=== PATIENT | female | born 1940 | race Caucasian/White ===

== ENCOUNTER 2016-07-24 20:25 | Inpatient (IN) | payer OTHER ==
--- NOTE | 2016-07-24 20:40 | PDOC ---
History of Present Illness - General History Source: Patient, EMS, [facility] Records Exam Limitations: No Limitations - History of Present Illness Initial Comments: 07/24/16 20:52 The patient is a 76 year old female with a PMHx of Parkinsons disease, diabetes , HTN, HLD, GERD gout, spinal stenosis who presents to the ED from [facility] via EMS with dizziness today. The patient reports feeling fine most of the day, completing normal daily activities. However, she reports she began feeling dizzy suddenly. [facility] nurse noted that patient was also weak. She was evaluated at [facility] and sent to the ED because of an irregular heart rate. Per EMS, the patient was going back and forth between normal and bradycardia. She reports a good appetite. She denies any prior cardiac issues. The patient denies chest pain, shortness of breath, palpitations, headache. The patient denies fever, chills, nausea, vomiting, diarrhea, and constipation. The patient denies dysuria, frequency, urgency, and hematuria. Patient has a DNR. PCP: Dr. Gilberto Irby Allergies: Penicillin, Morphine, Ibuprofen <Olimpia Martinez A - Last Filed: 07/24/16 22:36> <Maria Victoria Urias - Last Filed: 07/25/16 21:53> - General Stated Complaint: Irregular Heart Beat Time Seen by Provider: 07/24/16 20:31 Past History <Olimpia Martinez - Last Filed: 07/24/16 22:36> - Past Medical History Diabetes: Yes Disorders: Yes (UTI'S) Hypercholesterolemia: Yes - Psycho/Social/Smoking Cessation Hx Anxiety: No Suicidal Ideation: No Smoking History: Never smoked Have you smoked in the past 12 months: No Hx Alcohol Use: No Drug/Substance Use Hx: No Substance Use Type: None <Maria Victoria Urias - Last Filed: 07/25/16 21:53> - Past Medical History Allergies/Adverse Reactions: Allergies Allergy/AdvReac Type Severity Reaction Status Date / Time ibuprofen Allergy Verified 07/24/16 20:39 morphine Allergy Verified 07/24/16 20:39 Penicillins Allergy Verified 07/24/16 20:39 Home Medications: Ambulatory Orders Allopurinol 300 mg PO DAILY 07/21/15 Enoxaparin Sodium [Lovenox] 40 mg SQ DAILY 07/21/15 Ezetimibe [Zetia] 10 mg PO DAILY 07/21/15 Insulin Lispro [Humalog] 8 unit SQ BID 07/21/15 Metformin HCl [Glucophage] 1,000 mg PO BID 07/21/15 Pantoprazole Sodium [Protonix] 40 mg PO DAILY 07/21/15 Sitagliptin Phosphate [Januvia] 100 mg PO DAILY 07/21/15 Tramadol HCl 50 mg PO QID PRN 07/21/15 Review of Systems - Review of Systems Able to Perform ROS?: Yes Comments:: 07/24/16 20:53 GENERAL/CONSTITUTIONAL: + weakness. No fever or chills. HEAD, EYES, EARS, NOSE AND THROAT: No change in vision. No ear pain or discharge. No sore throat. CARDIOVASCULAR: + irregular heart rate. No chest pain or shortness of breath. RESPIRATORY: No cough, wheezing, or hemoptysis. GASTROINTESTINAL: No nausea, vomiting, diarrhea or constipation. GENITOURINARY: No dysuria, frequency, or change in urination. MUSCULOSKELETAL: No joint or muscle swelling or pain. No neck or back pain. SKIN: No rash NEUROLOGIC: + dizziness. No headache, loss of consciousness, or change in strength/sensation. ENDOCRINE: No increased thirst. No abnormal weight change. HEMATOLOGIC/LYMPHATIC: No anemia, easy bleeding, or history of blood clots. ALLERGIC/IMMUNOLOGIC: No hives or skin allergy. <Olimpia Martinez - Last Filed: 07/24/16 22:36> *Physical Exam - Vital Signs Last Vital Signs Temp Pulse Resp BP Pulse Ox 97.7 F 86 20 178/111 98 07/24/16 20:40 07/24/16 20:40 07/24/16 20:40 07/24/16 20:40 07/24/16 20:40 - Physical Exam Comments: 07/24/16 22:36 GENERAL: Awake, alert, and fully oriented, in no acute distress, afebrile HEAD: No signs of trauma EYES: PERRLA, EOMI, sclera anicteric, conjunctiva clear ENT: Auricles normal inspection, hearing grossly normal, nares patent, oropharynx clear without exudates. Moist mucosa NECK: Normal ROM, supple, no lymphadenopathy, JVD, or masses LUNGS: Breath sounds equal, clear to auscultation bilaterally. No wheezes, and no crackles HEART: Regular rate and rhythm, normal S1 and S2, no murmurs, rubs or gallops ABDOMEN: Soft, nontender, normoactive bowel sounds. No guarding, no rebound. No masses EXTREMITIES: Normal range of motion, no edema. No clubbing or cyanosis. No cords, erythema, or tenderness NEUROLOGICAL: Cranial nerves II through XII grossly intact. Normal speech, no tremors SKIN: Warm, Dry, normal turgor, no rashes or lesions noted. <Olimpia Martinez - Last Filed: 07/24/16 22:36> ED Treatment Course - LABORATORY CBC & Chemistry Diagram: 07/24/16 20:30 07/24/16 20:30 - RADIOLOGY Radiograph Interpretation: 07/24/16 22:10 Chest X-Ray Reported by: Dr. Poonam Garzon Impression: Mild cardiomegaly and mild bilateral increased interstitial markings without evidence of acute lung disease. <Olimpia Martinez - Last Filed: 07/24/16 22:36> - LABORATORY CBC & Chemistry Diagram: 07/25/16 06:00 07/25/16 06:00 <Maria Victoria Urias - Last Filed: 07/25/16 21:53> Medical Decision Making - Medical Decision Making 07/24/16 20:44 Pt comes with intermittent bradycardia. Possibly sick sinus syndrome. On EKG she has new changes. She was NSR in Jul 2015; now she has a new interventricular consuction delay. In the ER she has HR of 83BPM. Her systolic pressure is 178, however, she takes nothing for HTN, so I will not treat this, as she is asymptomatic, and when she bradys down to 40s heart rate, I believe an elevated systolic pressure will help her. Pt has no complaints, other than mild dizziness. She will be monitored and she will have cardiac labs sent. Portable CXR pending. One everything is back, we will call Dr. Irby; we will place a cordis line if pt becomes bradycardic in the ER. 07/25/16 21:53 Pt remained in the er FOR HOURS, BUT NEVER HAD AN EPISODE OF BRADYCARDIA. SHE WAS ADMITTED TO THE FLOOR. <Maria Victoria Urias - Last Filed: 07/25/16 21:53> *DC/Admit/Observation/Transfer - Attestations Scribe Attestion: 07/24/16 20:53 Documentation prepared by Olimpia Martinez, acting as medical transcription for Maria Victoria Urias MD. <Olimpia Martinez - Last Filed: 07/24/16 22:36> - Discharge Dispostion Admit: Yes <Maria Victoria Urias - Last Filed: 07/25/16 21:53> Diagnosis at time of Disposition: EKG abnormalities, Tachy-amado syndrome, Dizziness - Referrals
[2016-07-24 20:45] LABS: BASOPHIL 0.9 % (0-2.0); EOSINOPHIL 1.7 % (0-4.5); MCH 29.3 pg (25.7-33.7); MCHC 32.7 g/dl (32.0-36.0); MEAN CELL VOLUME 89.4 fl (80-96); MEAN PLT VOLUME 7.8 fl (7.5-11.1); PLATELET COUNT 246 K/MM3 (134-434); RDW 14.6 % (11.6-15.6)
[2016-07-24 20:48] VITALS: BMI 25.7
[2016-07-24 21:08] LABS: ANION GAP 10 (8-16); BILIRUBIN,TOTAL 0.3 mg/dL (0.2-1.0); CALCIUM 9.1 mg/dL (8.5-10.1); CO2 26 mmol/L (21-32); CREATININE 0.8 mg/dL (0.55-1.02); GLUCOSE,RANDOM 145 mg/dL (74-106); SGOT/AST 11 U/L (15-37); SGPT/ALT 8 U/L (12-78); TOT PROT 6.5 g/dl (6.4-8.2)
[2016-07-24 21:10] LABS: ALK PHOS 93 U/L (45-117); TROPONIN I < 0.02 ng/ml (0.00-0.05)
[2016-07-24 21:25] LABS: INR 0.93 (0.82-1.09); PROTHROMBIN TIME (PATIENT) 10.2 SEC (9.98-11.88)
[2016-07-24] MEDS ORDERED: traMADol HCL 50 MG TABLET PO PRN (22:03)
[2016-07-25] MEDS ORDERED: amLODIPine BESYLATE 5 MG TABLET (FP) PO SCH ×2 (01:45→10:00)
--- NOTE | 2016-07-25 06:08 | HP ---
Admitting History and Physical - Admission Chief Complaint: 80 y.o F [facility] resident developed last night bradicardia with pulse reported by staff 44-30, irregular pulse and dizziness and weakness while sitting in w/c. Pt was sent to [facility] for further management. History of Present Illness: 1.Pt has pituitary macroadenoma. Last MRI of the brain showed 16x9.5x12 mm macroadenoma in the right side of the pituitary gland crossing the midline causing deviation of the pituitary infundibulum to the left. Normal optic chiasm. 2. Subacute non-hemorrhagic lacunar infarct (7.2x4.8) was seen in the posterior aspect of the body of the left caudate nucleus on MRI 07/17/2016. 3. DM type 2. 4. Parkinson disease. 5.Spinal stenosis. Gait disorder. History of falls. 6. HTN. 7.HLD. 8. Gout. 9. GERD. 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: CVA, Parkinson's, Other (Cognitive impairment) Pulmonary: No: Asthma, Bronchitis, Cancer, COPD, O2 Dependent, Pneumonia, Previously Intubated, Pulmonary Embolus, Pulmonary Fibrosis, Sleep Apnea, Other Gastrointestinal: Yes: GERD Renal/: No: Renal Failure, Renal Inusuff, BPH, Cancer, Hematuria, Hemodialysis , Neurogenic Bladder, Renal Calculi, UTI, Other Infectious Disease: No: AIDS, C-Diff, Herpes Zoster, HIV, MRSA, STD's, Tuberculosis, VREF, Other Psych: No: Addictions, Anxiety, Bipolar, Depression, Panic, Psychosis, Schizophrenia, Other Rheumatology: No: Fibromyalgia, Gout, Lupus, Rheumatoid Arthritis, Sarcoidosis, Vasculitis, Other Endocrine: Yes: Diabetes Mellitus, Other (pituitary macroadenoma) Dermatology: No: Basal Cell, Cellulitis, Eczema, Melanoma, Psoriasis, Squamous Cell, Other - Advance Directives Advance Directives: Yes: DNR - Smoking History Smoking history: Never smoked Have you smoked in the past 12 months: No - Alcohol/Substance Use Hx Alcohol Use: No - Social History Usual Living Arrangement: Yes: Detention History of Recent Travel: No Home Medications - Allergies Allergies/Adverse Reactions: Allergies Allergy/AdvReac Type Severity Reaction Status Date / Time ibuprofen Allergy Verified 07/24/16 20:39 morphine Allergy Verified 07/24/16 20:39 Penicillins Allergy Verified 07/24/16 20:39 - Home Medications Home Medications: Ambulatory Orders Allopurinol 300 mg PO DAILY 07/21/15 Enoxaparin Sodium [Lovenox] 40 mg SQ DAILY 07/21/15 Ezetimibe [Zetia] 10 mg PO DAILY 07/21/15 Insulin Lispro [Humalog] 8 unit SQ BID 07/21/15 Metformin HCl [Glucophage] 1,000 mg PO BID 07/21/15 Pantoprazole Sodium [Protonix] 40 mg PO DAILY 07/21/15 Sitagliptin Phosphate [Januvia] 100 mg PO DAILY 07/21/15 Tramadol HCl 50 mg PO QID PRN 07/21/15 Family Disease History - Family Disease History Family History: Unremarkable Review of Systems Findings/Remarks: Forgetful Physical Examination Vital Signs: Vital Signs Temperature 98.2 F 07/25/16 05:27 Pulse Rate 80 07/25/16 05:27 Respiratory Rate 18 07/25/16 05:27 Blood Pressure 158/90 07/25/16 05:27 O2 Sat by Pulse Oximetry (%) 98 07/25/16 02:05 Constitutional: Yes: Well Nourished, Calm. No: No Distress Eyes: Yes: Conjunctiva Clear, EOM Intact HENT: Yes: Atraumatic, Normocephalic Neck: Yes: Supple, Trachea Midline. No: Decreased ROM Cardiovascular: Yes: Regular Rate and Rhythm, S1, S2. No: Bradycardia, Tachycardia Respiratory: Yes: Regular, CTA Bilaterally Gastrointestinal: Yes: Normal Bowel Sounds, Soft, Other (small umbilical hernia) . No: Abdomen, Obese, Palpable Mass, Tenderness ...Rectal Exam: Yes: Deferred Renal/: No: Anuria, Bladder Distention, CVA Tenderness - Left, CVA Tenderness - Right Breast(s): Yes: WNL Edema: No Integumentary: Yes: WNL Neurological: Yes: Alert, Oriented (x1) ...Motor Strength: WNL Psychiatric: Yes: Alert, Oriented (x1). No: Agitated, Suicidal Ideation Imaging - Results Chest X-ray: Report Reviewed MRI: Report Reviewed (Brain MRI-report reviewed) EKG: Image Reviewed (SR, New incomplete RBBB) Problem List - Problems (1) Tachy-amado syndrome Assessment/Plan: Episode of bradicardia at [facility] with irregular HR. Diff Dx -A.Fib-bradi, extrasystoly, heart block etc. pt was symptomatic with generalized weakness and dizziness. Will follow the pt on telemetry for cardiac arrhythmias. Cardiology consult Code(s): I49.5 - SICK SINUS SYNDROME (2) CVA (cerebral vascular accident) Assessment/Plan: Allergy to Motrin.Ibuprofen. Start Plavix 75 mg QD Observe for A.FIB Neurology consult Follow DM control and BP. Code(s): I63.9 - CEREBRAL INFARCTION, UNSPECIFIED Qualifiers: Precerebral and cerebral artery: unspecified precerebral artery (4) Pituitary adenoma Assessment/Plan: Endocrinology consult. Prolactin level, TFT. No symptoms of acromegaly or Elizabeth disease Code(s): D35.2 - BENIGN NEOPLASM OF PITUITARY GLAND (5) HTN (hypertension) Assessment/Plan: Follow BP. Added Amlodipine for better BP controll. Code(s): I10 - ESSENTIAL (PRIMARY) HYPERTENSION Qualifiers: Hypertension type: essential hypertension Qualified Code(s): I10 - Essential (primary) hypertension (6) Diabetes Assessment/Plan: Follow BGM Januvia, Insulin. Metformin as outpt. Code(s): E11.9 - TYPE 2 DIABETES MELLITUS WITHOUT COMPLICATIONS Qualifiers: Diabetes mellitus type: type 2 Diabetes mellitus complication status: without complication
[2016-07-25] MEDS: INSULIN SLIDING SCALE (NOVOLOG) 1 VIAL SQ SCH ×4 (06:26→22:10)
[2016-07-25] MEDS: sitaGLIPtin PHOSPHATE 100 MG TABLET (FP) PO SCH (06:38)
[2016-07-25] MEDS ORDERED: amLODIPine BESYLATE 10 MG TABLET (FP) PO SCH (06:44)
[2016-07-25 08:43] LABS: BASOPHIL 0.8 % (0-2.0); EOSINOPHIL 1.8 % (0-4.5); MCH 29.5 pg (25.7-33.7); MCHC 32.9 g/dl (32.0-36.0); MEAN CELL VOLUME 89.6 fl (80-96); NEUTROPHILS 65.3 % (42.8-82.8); PLATELET COUNT 242 K/MM3 (134-434); RDW 14.3 % (11.6-15.6); WHITE BLOOD COUNT 9.7 K/mm3 (4.0-10.0)
[2016-07-25 08:57] LABS: ALBUMIN 3.3 g/dl (3.4-5.0); ANION GAP 11 (8-16); CALCIUM 9.9 mg/dL (8.5-10.1); CO2 28 mmol/L (21-32); CREATININE 0.7 mg/dL (0.55-1.02); GLUCOSE,RANDOM 125 mg/dL (74-106); MAGNESIUM 1.3 mg/dL (1.8-2.4); PHOSPHOROUS 3.5 mg/dL (2.5-4.9); SGOT/AST 14 U/L (15-37); SGPT/ALT 19 U/L (12-78)
[2016-07-25 08:58] LABS: ALK PHOS 99 U/L (45-117); BILIRUBIN,TOTAL 0.4 mg/dL (0.2-1.0); TOT PROT 6.8 g/dl (6.4-8.2)
[2016-07-25] MEDS: ALLOPURINOL 300 MG TABLET (FP) PO SCH (09:09)
[2016-07-25] MEDS: HEPARIN NA (PORCINE) 5,000 UNITS/ML 1ML VIAL SQ SCH ×2 (09:09→22:08)
[2016-07-25] MEDS: INSULIN DETEMIR 100 UNITS/ML MDV SQ SCH (09:09)
[2016-07-25] MEDS: EZETIMIBE 10 MG TABLET (FP) PO SCH (09:09)
[2016-07-25] MEDS: PANTOPRAZOLE 40 MG TABLET (FP) PO SCH (09:09)
[2016-07-25] MEDS ORDERED: HEPARIN NA (PORCINE) 5,000 UNITS/ML 1ML VIAL SQ SCH (10:00)
[2016-07-25] MEDS ORDERED: INSULIN LISPRO 8 UNIT SQ SCH (10:00)
[2016-07-25] MEDS ORDERED: CLOPIDOGREL BISULFATE 75 MG TABLET (FP) PO SCH (10:00)
[2016-07-25] MEDS ORDERED: ENOXAPARIN NA (PORCINE) 40 MG/0.4 ML DISP.SYRIN SQ SCH (10:00)
--- NOTE | 2016-07-25 10:08 | PN ---
Progress Note (short form) - Note Progress Note: NEUROSURGERY CONSULT DICTATED Chart reviewed Pt examined Brain CT and MRI reviewed H/o ?Parkinsons disease, diabetes, HTN, hypercholesterolemia, GERD, gout, spinal stenosis who presents to the ED from [facility] with dizziness. She was evaluated at [facility] and sent to the ED because of an irregular heart rate. Per EMS, the patient was going back and forth between normal and bradycardia. She reports a good appetite. She denies any prior cardiac issues. The patient denies chest pain, shortness of breath, palpitations , headache. The patient denies H/A, N/V, visual changes, fever, chills. Patient is DNR. PE: AF, VSS HEENT- NC/ACT; Neck-supple; Cor-RR; Lungs- CTA B; Abd- mildly obese, benign; Ext - trace edema, no other sign of DVT A/A/Ox4; memory intact; speech normal CN- decreased L hearing; Motor- 4+-5/5 without drift; Sensation- intact LT; DTR - hyporeflexia Head CT; moderate atrophy and moderate periventricular disease; BG lacunes MRI Brain: 16 x 11x 9 mm R sellar lesion with stalk to L; no chiasm compression or suprasellar extension; moderate atrophy. Extensive white matter microvascular disease; L caudate subacute/acute ischemia Probably pituitary non-functional macroadenoma Given extensive medical history no neurosurgical intervention is recommended for this likely asymptomatic lesion Dizziness likely related to acute-subacute L caudate ischemia and/or bradycardia Control of medical risk factors (DM/HTN/hypercholesterolemia) for stroke Pt understands the above
--- NOTE | 2016-07-25 15:05 | CON.CARD ---
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 The patient reports feeling fine most of the day, completing normal daily activities. However, she reports she began feeling dizzy suddenly. [facility] nurse noted that patient was also weak. She was evaluated at [facility] and sent to the ED because of an irregular heart rate. Per EMS, the patient was going back and forth between normal and bradycardia. She reports a good appetite. She denies any prior cardiac issues. The patient denies chest pain, shortness of breath, palpitations, headache. The patient denies fever, chills, nausea, vomiting, diarrhea, and constipation. The patient denies dysuria, frequency, urgency, and hematuria. Patient has a DNR. PCP: Dr. 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, Parkinson's, Other (Cognitive impairment) Pulmonary: No: Asthma, Bronchitis, Cancer, COPD, O2 Dependent, Pneumonia, Previously Intubated, Pulmonary Embolus, Pulmonary Fibrosis, Sleep Apnea, Other Gastrointestinal: Yes: GERD Renal/: No: Renal Failure, Renal Inusuff, BPH, Cancer, Hematuria, Hemodialysis , Neurogenic Bladder, Renal Calculi, UTI, Other Reproductive: Yes: Postmenopausal ...: No Infectious Disease: No: AIDS, C-Diff, Herpes Zoster, HIV, MRSA, STD's, Tuberculosis, VREF, Other Psych: No: Addictions, Anxiety, Bipolar, Depression, Panic, Psychosis, Schizophrenia, Other Rheumatology: No: Fibromyalgia, Gout, Lupus, Rheumatoid Arthritis, Sarcoidosis, Vasculitis, Other Endocrine: Yes: Diabetes Mellitus, Other (pituitary macroadenoma) Dermatology: No: Basal Cell, Cellulitis, Eczema, Melanoma, Psoriasis, Squamous Cell, Other - Alcohol/Substance Use Hx Alcohol Use: No - Smoking History Smoking history: Never smoked Have you smoked in the past 12 months: No - Social History History of Recent Travel: No Home Medications - Allergies Allergies/Adverse Reactions: Allergies Allergy/AdvReac Type Severity Reaction Status Date / Time ibuprofen Allergy Verified 07/24/16 20:39 morphine Allergy Verified 07/24/16 20:39 Penicillins Allergy Verified 07/24/16 20:39 - Home Medications Home Medications: Ambulatory Orders Allopurinol 300 mg PO DAILY 07/21/15 Enoxaparin Sodium [Lovenox] 40 mg SQ DAILY 07/21/15 Ezetimibe [Zetia] 10 mg PO DAILY 07/21/15 Insulin Lispro [Humalog] 8 unit SQ BID 07/21/15 Metformin HCl [Glucophage] 1,000 mg PO BID 07/21/15 Pantoprazole Sodium [Protonix] 40 mg PO DAILY 07/21/15 Sitagliptin Phosphate [Januvia] 100 mg PO DAILY 07/21/15 Tramadol HCl 50 mg PO QID PRN 07/21/15 - Risk Factors Known Risk Factors: Yes: Age, Hypertension, Physical Inactivity Vital Signs: Vital Signs Temperature 98.1 F 07/25/16 10:00 Pulse Rate 45 L 07/25/16 14:00 Respiratory Rate 18 07/25/16 14:00 Blood Pressure 150/71 07/25/16 14:00 O2 Sat by Pulse Oximetry (%) 90 L 07/25/16 09:00 Constitutional: Yes: Calm Eyes: Yes: WNL HENT: Yes: WNL Neck: Yes: WNL Respiratory: Yes: Regular Gastrointestinal: Yes: Soft Renal/: No: Anuria Cardiovascular: Yes: Bradycardia JVD: No Carotid Bruit: No PMI: Non-Displaced Heart Sounds: Yes: S1, S2 Murmur: Yes: Systolic Murmur, Grade 1 Musculoskeletal: Yes: Muscle Weakness Extremities: Yes: Cool Edema: No Peripheral Pulses WNL: No Integumentary: Yes: WNL Neurological: Yes: Alert Psychiatric: Yes: Alert - Other Data Labs, Other Data: CBC, BMP 07/25/16 06:00 07/25/16 06:00 INR, PTT INR 0.93 (0.82-1.09) 07/24/16 20:30 Imaging - Results Chest X-ray: Image Reviewed (no acute changes) Problem List - Problems (1) CVA (cerebral vascular accident) Code(s): I63.9 - CEREBRAL INFARCTION, UNSPECIFIED Qualifiers: Precerebral and cerebral artery: unspecified precerebral artery (2) Dizziness Code(s): R42 - DIZZINESS AND GIDDINESS (3) EKG abnormalities Code(s): R94.31 - ABNORMAL ELECTROCARDIOGRAM [ECG] [EKG] (4) HTN (hypertension) Assessment/Plan: Start lisinopril 5 mg daily (HTN; DM). Decrease amlodipine to 5 mg daily; increase if required for BP. Code(s): I10 - ESSENTIAL (PRIMARY) HYPERTENSION Qualifiers: Hypertension type: essential hypertension Qualified Code(s): I10 - Essential (primary) hypertension (5) Pituitary adenoma Code(s): D35.2 - BENIGN NEOPLASM OF PITUITARY GLAND (6) Second degree AV block Assessment/Plan: 2:1 AV conduction. F/u TFTs. Replete magnesium. Telemetry; serial EKG. Serkal TNI (1st. last night, was 0.02). Echo for LVEF, chamber sizes, wall motion, valve status. Code(s): I44.1 - ATRIOVENTRICULAR BLOCK, SECOND DEGREE
[2016-07-25] MEDS ORDERED: MAGNESIUM SULF 50% (8.12 MEQ/2 ML-1 GM VIAL) IVPB ONE (15:30)
[2016-07-25 17:12] LABS: TROPONIN I < 0.02 ng/ml (0.00-0.05)
[2016-07-25 17:36] LABS: CHOLESTEROL 215 mg/dL (50-200); LDL CHOLESTEROL (ONLY SJRH) 127 mg/dL (5-100)
--- NOTE | 2016-07-25 19:32 | CONSULT ---
Consult - text type - Consultation Consultation Note: NEUROLOGY CONSULTATION is greatly appreciated: This 76 yo RH religion woman is a [facility] resident with h/o HTN, DM, Chol, gout, GERD, Parkinsons Disease, OMS, and LS spinal stenosis. Maintained on: Insulins, metformin, Januvia, allopurinal, lovenox, zetia, protonix, tramadol, and Sinemet (37.5/150 PO TID). Now admitted after 4 brief episodes of dizziness in the last few weeks. Described as "spinning" of sudden onset. No obvious positional or provocative factors. - Tinnitus. + chronic Left sided deafness MRI was done as outpatient and is available for review: Mod, diffuse, atrophy. Diffuse periventricular microvascular changes with chronic,B/L, Basal ganglia lacunes and a subacute lacune in the left caudate. Also a 1 cm diameter pituitary adenoma is present. Transferred from [facility] with Bradycardia and 2:[address] Jacob's consultation is read and appreciated. NINFA: No bruits, Cor slow (50's) but reg. No head trauma. NEURO: Awake, alert, cooperative. Mild OMS. [facility] Jul 2016. Trump. Recalls 1 of 3 at 3. + Glabella. Speech is fluent Masked facies. Deaf Mild bradykinesia. + Cogwheel rigidity. Normal strength. Decreased GREG's R>L. Increased reflexes on the right. Absent Left AJ. Right Babinski. No FTN dystaxia Sensory: reduced vibration in the feet. IMP: 1. Mild B/L cerebral dysfunction (OMS, Chronic). 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 2. Mild Left cerebral accentuation due to Left caudate infarct with mild Right hemiparesis. 3. Parkinsonism and/or Parkinson's disease. 4. Presyncope due to Bradycardia and Garvin block. SUGGEST: Agree with plavix 75 mg PO qd. Continue Sinemet CR 50/200 TID @ 7 AM, 12 noon, and 5PM Cardiac eval as per Dr. Gentile and PPM if necessary. Neurology f/u as out patient. Thank you very much, Rohan Sharma MD
--- NOTE | 2016-07-25 20:58 | EKG ---
Test Reason : Blood Pressure : / mmHG Vent. Rate : 045 BPM Atrial Rate : 089 BPM P-R Int : 152 ms QRS Dur : 132 ms QT Int : 490 ms P-R-T Axes : 040 040 061 degrees QTc Int : 423 ms SINUS RHYTHM WITH 2ND DEGREE A-V BLOCK WITH 2:1 A-V CONDUCTION POSSIBLE LEFT ATRIAL ENLARGEMENT RIGHT BUNDLE BRANCH BLOCK ABNORMAL ECG WHEN COMPARED WITH ECG OF 25-JUL-2016 09:25, NO SIGNIFICANT CHANGE WAS FOUND Confirmed by DARRIAN CHUN MD ([id number]) on 07/25/2016 8:58:01 PM Referred By: Antonieta ISAAC Confirmed By:DARRIAN CHUN MD
--- NOTE | 2016-07-25 21:02 | EKG ---
Test Reason : Blood Pressure : / mmHG Vent. Rate : 043 BPM Atrial Rate : 087 BPM P-R Int : 158 ms QRS Dur : 138 ms QT Int : 506 ms P-R-T Axes : 040 026 061 degrees QTc Int : 427 ms SINUS RHYTHM WITH 2ND DEGREE A-V BLOCK WITH 2:1 A-V CONDUCTION RIGHT BUNDLE BRANCH BLOCK POSSIBLE INFERIOR INFARCT (CITED ON OR BEFORE 24-JUL-2016) ABNORMAL ECG WHEN COMPARED WITH ECG OF 24-JUL-2016 20:39, SINUS RHYTHM IS NOW WITH 2ND DEGREE A-V BLOCK VENT. RATE HAS DECREASED BY 39 BPM RIGHT BUNDLE BRANCH BLOCK HAS REPLACED NON-SPECIFIC INTRA-VENTRICULAR CONDUCTION BLOCK Confirmed by DARRIAN CHUN MD ([id number]) on 07/25/2016 9:02:03 PM Referred By: Antonieta ISAAC Confirmed By:DARRIAN CHUN MD
--- NOTE | 2016-07-25 21:04 | EKG ---
Test Reason : Blood Pressure : / mmHG Vent. Rate : 082 BPM Atrial Rate : 082 BPM P-R Int : 168 ms QRS Dur : 128 ms QT Int : 408 ms P-R-T Axes : 036 037 033 degrees QTc Int : 476 ms NORMAL SINUS RHYTHM POSSIBLE LEFT ATRIAL ENLARGEMENT NON-SPECIFIC INTRA-VENTRICULAR CONDUCTION BLOCK INFERIOR INFARCT , AGE UNDETERMINED ABNORMAL ECG NO PREVIOUS ECGS AVAILABLE Confirmed by DARRIAN CHUN MD ([id number]) on 07/25/2016 9:04:42 PM Referred By: Confirmed By:DARRIAN CHUN MD
[2016-07-25 22:30] LABS: TROPONIN I < 0.02 ng/ml (0.00-0.05)
--- NOTE | 2016-07-26 00:16 | CONSULT ---
Consult Consult Specialty:: endocrine Referred by:: Reason for Consultation:: pituitary adenoma - History of Present Illness Chief Complaint: dizzy episodes History of Present Illness: 76 year old female with a PMHx of Parkinsons disease, diabetes, HTN, HLD, GERD gout, spinal stenosis who presents to the ED from [facility] via EMS with dizziness today. The patient reports feeling dizzy during 4 episodes that were brief without headache nausea or vomiting.she denies vision disturbance or galactorea - History Source History Provided By: Patient - Past Medical History MANAGER CARDIOVASCULAR: Yes: CVA, Parkinson's, Other (Cognitive impairment) Pulmonary: No: Asthma, Bronchitis, Cancer, COPD, O2 Dependent, Pneumonia, Previously Intubated, Pulmonary Embolus, Pulmonary Fibrosis, Sleep Apnea, Other Gastrointestinal: Yes: GERD Renal/: No: Renal Failure, Renal Inusuff, BPH, Cancer, Hematuria, Hemodialysis , Neurogenic Bladder, Renal Calculi, UTI, Other ...: No Infectious Disease: No: AIDS, C-Diff, Herpes Zoster, HIV, MRSA, STD's, Tuberculosis, VREF, Other Psych: No: Addictions, Anxiety, Bipolar, Depression, Panic, Psychosis, Schizophrenia, Other Rheumatology: No: Fibromyalgia, Gout, Lupus, Rheumatoid Arthritis, Sarcoidosis, Vasculitis, Other Endocrine: Yes: Diabetes Mellitus, Other (pituitary macroadenoma) Dermatology: No: Basal Cell, Cellulitis, Eczema, Melanoma, Psoriasis, Squamous Cell, Other - Alcohol/Substance Use Hx Alcohol Use: No - Smoking History Smoking history: Never smoked Have you smoked in the past 12 months: No - Social History History of Recent Travel: No Home Medications - Allergies Allergies/Adverse Reactions: Allergies Allergy/AdvReac Type Severity Reaction Status Date / Time ibuprofen Allergy Verified 07/24/16 20:39 morphine Allergy Verified 07/24/16 20:39 Penicillins Allergy Verified 07/24/16 20:39 - Home Medications Home Medications: Ambulatory Orders Allopurinol 300 mg PO DAILY 07/21/15 Enoxaparin Sodium [Lovenox] 40 mg SQ DAILY 07/21/15 Ezetimibe [Zetia] 10 mg PO DAILY 07/21/15 Insulin Lispro [Humalog] 8 unit SQ BID 07/21/15 Metformin HCl [Glucophage] 1,000 mg PO BID 07/21/15 Pantoprazole Sodium [Protonix] 40 mg PO DAILY 07/21/15 Sitagliptin Phosphate [Januvia] 100 mg PO DAILY 07/21/15 Tramadol HCl 50 mg PO QID PRN 07/21/15 Review of Systems - Review of Systems Constitutional: reports: Weakness Eyes: reports: No Symptoms HENT: reports: No Symptoms Neck: reports: No Symptoms Cardiovascular: reports: No Symptoms Respiratory: reports: No Symptoms Gastrointestinal: reports: No Symptoms Genitourinary: reports: No Symptoms Breasts: reports: No Symptoms Reported Musculoskeletal: reports: Muscle Cramps, Muscle Weakness Integumentary: reports: No Symptoms Neurological: reports: No Symptoms Hematology/Lymphatic: reports: No Symptoms Psychiatric: reports: No Symptoms Physical Exam Vital Signs: Vital Signs Temperature 98.1 F 07/25/16 18:00 Pulse Rate 45 L 07/25/16 18:00 Respiratory Rate 18 07/25/16 18:00 Blood Pressure 146/65 07/25/16 18:00 O2 Sat by Pulse Oximetry (%) 90 L 07/25/16 09:00 Constitutional: Yes: Calm Eyes: Yes: EOM Intact HENT: Yes: Normocephalic Neck: Yes: Trachea Midline Cardiovascular: Yes: Regular Rate and Rhythm Respiratory: Yes: CTA Bilaterally Gastrointestinal: Yes: Normal Bowel Sounds ...Rectal Exam: Yes: Deferred Renal/: Yes: WNL Breast(s): Yes: WNL Musculoskeletal: Yes: WNL Extremities: Yes: WNL Edema: No Peripheral Pulses WNL: Yes Neurological: Yes: Alert, Oriented ...Motor Strength: WNL Psychiatric: Yes: Alert, Oriented Labs: CBC, BMP 07/25/16 06:00 07/25/16 06:00 Problem List - Problems (1) CVA (cerebral vascular accident) Code(s): I63.9 - CEREBRAL INFARCTION, UNSPECIFIED Qualifiers: Precerebral and cerebral artery: unspecified precerebral artery (2) Diabetes Code(s): E11.9 - TYPE 2 DIABETES MELLITUS WITHOUT COMPLICATIONS Qualifiers: Diabetes mellitus type: type 2 Diabetes mellitus complication status: without complication (3) HTN (hypertension) Code(s): I10 - ESSENTIAL (PRIMARY) HYPERTENSION Qualifiers: Hypertension type: essential hypertension Qualified Code(s): I10 - Essential (primary) hypertension (4) Pituitary adenoma Code(s): D35.2 - BENIGN NEOPLASM OF PITUITARY GLAND Assessment/Plan Current Active Problems CVA (cerebral vascular accident) (Acute) Diabetes (Acute) Dizziness (Acute) EKG abnormalities (Acute) HTN (hypertension) (Acute) Pituitary adenoma (Acute) Second degree AV block (Acute) Tachy-amado syndrome (Acute) Abnormal Lab Results 07/25/16 07/25/16 07/25/16 06:00 06:00 06:00 BUN 23 H Random Glucose 125 H Hemoglobin A1c % 6.2 H Magnesium 1.3 L AST 14 L D Albumin 3.3 L Triglycerides 401 H Cholesterol 215 H Total LDL Cholesterol 127 H Laboratory Results - last 24 hr 07/25/16 07/25/16 07/25/16 05:01 06:00 06:00 WBC 9.7 RBC 4.73 Hgb 14.0 Hct 42.4 MCV 89.6 MCHC 32.9 RDW 14.3 Plt Count 242 MPV 8.0 Neutrophils % 65.3 Lymphocytes % 26.1 Monocytes % 6.0 Eosinophils % 1.8 Basophils % 0.8 Sodium 140 Potassium 4.1 Chloride 101 Carbon Dioxide 28 Anion Gap 11 BUN 23 H Creatinine 0.7 Creat Clearance w eGFR > 60 POC Glucometer 89 Random Glucose 125 H Hemoglobin A1c % Calcium 9.9 Phosphorus 3.5 Magnesium 1.3 L Total Bilirubin 0.4 D AST 14 L D ALT 19 D Alkaline Phosphatase 99 Creatine Kinase Troponin I Total Protein 6.8 Albumin 3.3 L Triglycerides Cholesterol Total LDL Cholesterol HDL Cholesterol TSH 07/25/16 07/25/16 07/25/16 06:00 06:00 06:00 WBC RBC Hgb Hct MCV MCHC RDW Plt Count MPV Neutrophils % Lymphocytes % Monocytes % Eosinophils % Basophils % Sodium Potassium Chloride Carbon Dioxide Anion Gap BUN Creatinine Creat Clearance w eGFR POC Glucometer Random Glucose Hemoglobin A1c % 6.2 H Calcium Phosphorus Magnesium Total Bilirubin AST ALT Alkaline Phosphatase Creatine Kinase Troponin I Total Protein Albumin Triglycerides 401 H Cholesterol 215 H Total LDL Cholesterol 127 H HDL Cholesterol 46 TSH 3.12 07/25/16 07/25/16 07/25/16 11:10 15:50 16:34 WBC RBC Hgb Hct MCV MCHC RDW Plt Count MPV Neutrophils % Lymphocytes % Monocytes % Eosinophils % Basophils % Sodium Potassium Chloride Carbon Dioxide Anion Gap BUN Creatinine Creat Clearance w eGFR POC Glucometer 215 146 Random Glucose Hemoglobin A1c % Calcium Phosphorus Magnesium Total Bilirubin AST ALT Alkaline Phosphatase Creatine Kinase 37 Troponin I < 0.02 Total Protein Albumin Triglycerides Cholesterol Total LDL Cholesterol HDL Cholesterol TSH 07/25/16 07/25/16 21:45 22:07 WBC RBC Hgb Hct MCV MCHC RDW Plt Count MPV Neutrophils % Lymphocytes % Monocytes % Eosinophils % Basophils % Sodium Potassium Chloride Carbon Dioxide Anion Gap BUN Creatinine Creat Clearance w eGFR POC Glucometer 217 Random Glucose Hemoglobin A1c % Calcium Phosphorus Magnesium Total Bilirubin AST ALT Alkaline Phosphatase Creatine Kinase 37 Troponin I < 0.02 Total Protein Albumin Triglycerides Cholesterol Total LDL Cholesterol HDL Cholesterol TSH Current Medications Generic Name Dose Route Start Last Admin Trade Name Freq PRN Reason Stop Dose Admin Allopurinol 300 mg 07/25/16 10:00 07/25/16 09:09 Zyloprim - PO 300 mg DAILY BRITTANY Administration Amlodipine Besylate 5 mg 07/26/16 10:00 Norvasc - PO DAILY BRITTANY Ezetimibe 10 mg 07/25/16 10:00 07/25/16 09:09 Zetia - PO 10 mg DAILY BRITTANY Administration Heparin Sodium (Porcine) 5,000 unit 07/25/16 10:00 07/25/16 22:08 Heparin - SQ Not Given BID [facility] Insulin Aspart 1 vial 07/25/16 07:00 07/25/16 22:10 Novolog Vial Sliding Scale - SQ 2 units ACHS BRITTANY Administration Protocol Insulin Detemir 10 units 07/25/16 07:00 07/25/16 09:09 Levemir Vial SQ 10 units AM BRITTANY Administration Lisinopril 5 mg 07/26/16 10:00 Prinivil PO DAILY [facility] Pantoprazole Sodium 40 mg 07/25/16 10:00 07/25/16 09:09 Protonix - PO 40 mg DAILY BRITTANY Administration Sitagliptin Phosphate 100 mg 07/25/16 07:00 07/25/16 06:38 Januvia - PO 100 mg ACBK BRITTANY Administration Tramadol HCl 50 mg 07/24/16 22:03 Ultram - PO Q6H PRN PAIN plan:check pituitary axis and adrenal function cortisol am/pm acth prolactin urine vma concur with insulin coverage and levemir 10 units am januvia 100mg daily
[2016-07-26] MEDS: INSULIN SLIDING SCALE (NOVOLOG) 1 VIAL SQ SCH ×4 (06:16→21:48)
[2016-07-26] MEDS: sitaGLIPtin PHOSPHATE 100 MG TABLET (FP) PO SCH (06:19)
[2016-07-26] MEDS: INSULIN DETEMIR 100 UNITS/ML MDV SQ SCH (06:20)
--- NOTE | 2016-07-26 09:00 | PN ---
Progress Note (short form) - Note Progress Note: PT IS AWAKE ALERT, NAD. TELEMETRY OVER 24 HRS MAYCO WED LONG EPISODES OF av BLOCK WITH 2:1 CONDUCTION WITH BRADICARDIA Vital Signs (72 hours) 07/24/16 07/24/16 07/24/16 20:40 21:30 23:30 Temperature 97.7 F 98.5 F Pulse Rate 86 Pulse Rate [ 88 83 Apical] Respiratory 20 18 22 Rate Blood Pressure 178/111 Blood Pressure 160/100 152/103 [Right Arm] O2 Sat by Pulse 98 99 99 Oximetry (%) 07/25/16 07/25/16 07/25/16 02:05 05:27 09:00 Temperature 97.8 F 98.2 F Pulse Rate 78 80 Pulse Rate [ Apical] Respiratory 20 18 18 Rate Blood Pressure 158/102 158/90 Blood Pressure [Right Arm] O2 Sat by Pulse 98 90 L Oximetry (%) 07/25/16 07/25/16 07/25/16 10:00 14:00 18:00 Temperature 98.1 F 98.1 F Pulse Rate 45 L 45 L 45 L Pulse Rate [ Apical] Respiratory 18 18 18 Rate Blood Pressure 154/76 150/71 146/65 Blood Pressure [Right Arm] O2 Sat by Pulse Oximetry (%) 07/25/16 07/25/16 07/26/16 21:00 22:00 01:47 Temperature 97.5 F L 97.9 F Pulse Rate 48 L 62 Pulse Rate [ Apical] Respiratory 18 18 Rate Blood Pressure 142/71 158/88 Blood Pressure [Right Arm] O2 Sat by Pulse 90 L 90 L Oximetry (%) 07/26/16 07/26/16 06:00 09:01 Temperature 98.1 F Pulse Rate 69 80 Pulse Rate [ Apical] Respiratory 18 20 Rate Blood Pressure 154/83 143/83 Blood Pressure [Right Arm] O2 Sat by Pulse 95 Oximetry (%) ON PE AWAKE, ALERT NECK-NO JVD LUNGS ARE CLEAR HEART S1S2 REGULAR ABDOMEN SOFT, NT EXT NO CCE MILDLY CONFUSED -OMS DISCUSSED WITH DR RIVERO YESTERDAY. ENDOCRINOLOGY W/U FOR PITUITARY MACROADENOMA ORDERED BY DR HARRELL CARDIOTHORACIC CONSULT WAS ORDERED -ELLY CHÁVEZ Current Active Problems Problem Status Diagnosed CVA (cerebral vascular accident) Acute Diabetes Acute Dizziness Acute EKG abnormalities Acute HTN (hypertension) Acute Pituitary adenoma Acute Second degree AV block Acute Tachy-amado syndrome Acute AV BLOCK 2:1 Acute PLAN CONTINUE TELEMETRY. WILL DISCUSS PPM WITH HCP. 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 - SICK SINUS SYNDROME (2) CVA (cerebral vascular accident) Code(s): I63.9 - CEREBRAL INFARCTION, UNSPECIFIED Qualifiers: Precerebral and cerebral artery: unspecified precerebral artery (4) Pituitary adenoma Code(s): D35.2 - BENIGN NEOPLASM OF PITUITARY GLAND (5) HTN (hypertension) Code(s): I10 - ESSENTIAL (PRIMARY) HYPERTENSION Qualifiers: Hypertension type: essential hypertension Qualified Code(s): I10 - Essential (primary) hypertension (6) Diabetes Code(s): E11.9 - TYPE 2 DIABETES MELLITUS WITHOUT COMPLICATIONS Qualifiers: Diabetes mellitus type: type 2 Diabetes mellitus complication status: without complication
--- NOTE | 2016-07-26 09:30 | PN ---
Progress Note (short form) - Note Progress Note: NEUROSURGERY In good spirit No new complaint; no dizziness PE: AF, VSS HEENT- NC/ACT; Neck-supple; Cor-RR; Lungs- CTA B; Abd- mildly obese, benign; Ext - trace edema, no other sign of DVT A/A/Ox4; memory intact; speech normal CN- decreased L hearing; Motor- 4+-5/5 without drift; Sensation- intact LT; DTR - hyporeflexia Head CT; moderate atrophy and moderate periventricular disease; BG lacunes MRI Brain: 16 x 11x 9 mm R sellar lesion with stalk to L; no chiasm compression or suprasellar extension; moderate atrophy. Extensive white matter microvascular disease; L caudate subacute/acute ischemia Probable pituitary non-functional macroadenoma Given extensive medical history no neurosurgical intervention is recommended for this asymptomatic lesion Dizziness likely related to acute-subacute L caudate ischemia and/or bradycardia Control of medical risk factors (DM/HTN/hypercholesterolemia) for stroke On ASA/Plavix per medical team The above reviewed with patient
[2016-07-26] MEDS ORDERED: amLODIPine BESYLATE 5 MG TABLET (FP) PO SCH (10:00)
[2016-07-26] MEDS: EZETIMIBE 10 MG TABLET (FP) PO SCH (10:07)
[2016-07-26] MEDS: LISINOPRIL 5 MG TABLET (FP) PO SCH (10:07)
[2016-07-26] MEDS: PANTOPRAZOLE 40 MG TABLET (FP) PO SCH (10:07)
[2016-07-26] MEDS: ALLOPURINOL 300 MG TABLET (FP) PO SCH (10:08)
[2016-07-26] MEDS: HEPARIN NA (PORCINE) 5,000 UNITS/ML 1ML VIAL SQ SCH ×2 (10:08→21:45)
--- NOTE | 2016-07-26 12:12 | CONS ---
DATE OF CONSULTATION: 07/25/2016 CHIEF COMPLAINT: Dizziness. HISTORY OF PRESENT ILLNESS: The patient is a 76-year-old right-handed female, resident of [facility], who was found to have dizziness yesterday, just prior to admission. Her heart rate was in the 40s. She denies any headache, diplopia, seizure activity or loss of consciousness. She also feels weak overall. Upon further questioning, the patient knows that she has a history of pituitary macroadenoma on a prior imaging study. She had developed history of possible stroke in the past, as well as Parkinson disease. She also has extensive medical history. PAST MEDICAL HISTORY: Includes CVA, Parkinson disease, gastroesophageal reflux disease, diabetes, COPD, hypertension, gout. CURRENT MEDICATIONS: Include subcutaneous heparin, allopurinol, Zetia, Norvasc, Januvia, Levemir, Ultram, Plavix and Protonix. ALLERGIES: IBUPROFEN, MORPHINE, PENICILLIN. SOCIAL HISTORY: She is a fpc resident at [facility]. 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 She does not smoke or drink any alcohol. REVIEW OF SYSTEMS: Otherwise negative for other major cardiovascular, pulmonary , gastrointestinal, genitourinary, endocrinologic, neurological or psychological problems except for the above. PHYSICAL EXAMINATION: Vitals: Temperature is 98.1, blood pressure 154/76, with pulse rate 45. HEENT: Examination shows her to be normocephalic, atraumatic, anicteric. Neck: Supple, with no carotid bruit. Heart: Coronary examination demonstrated bradycardia. Respiratory: Lungs are clear bilaterally. Abdomen: Benign but mildly obese. Extremities: Examination showed trace edema of the ankles. There is no other signs of DVT. Neurologic: She is awake, alert and oriented x4. Her memory is intact. Higher cortical function appears to be normal, including normal speech. Cranial nerve examination showed decreased left ear hearing. Motor examination demonstrates 4 +/5 strength without a drift. Sensory examination is intact to light touch. She has decreased vibratory sensation in her feet. Deep tendon reflexes are hyporeflexic throughout. There is no pathological long tract sign. Gait was not tested for safety reasons. DIAGNOSTIC STUDIES: Laboratory examination shows the white blood cell count to be 9700; hemoglobin 14; platelet count 242,000. INR 0.93. Serum sodium 140, potassium 4.1, BUN 23, creatinine 0.7, albumin 3.3. CT scan of the head demonstrated moderate cerebral atrophy with moderate periventricular small vessel disease and basal ganglia lacunes. There is no acute bleed or fracture. MRI of the brain on July 17 demonstrated moderate cerebral atrophy and moderate periventricular small vessel disease as well as generalized white matter disease from ischemia. There is acute/subacute ischemia of the left caudate. A nonenhancing right pituitary isointense lesion is noted, approximately 16 x 10 x 9 mm, which deviates the pituitary stalk towards the left. There is no suprasellar or cavernous sinus extension. IMPRESSION: 1. 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 2. Hypertension. 3. Multifocal cerebral ischemic disease with acute/subacute ischemia of the left caudate. 4. Bradycardia. 5. History of Parkinson disease by report. 6. Gout. 7. Spinal stenosis. 8. Hypercholesterolemia. RECOMMENDATIONS: The patient presents with a couple-day history of increasing dizziness. This could be related to her bradycardia and/or the acute/subacute left caudate ischemia. The patient has other significant medical comorbidities for stroke, including diabetes, hypertension and hypercholesterolemia, and optimal control of those conditions should be attempted. No neurosurgical intervention is recommended for this likely asymptomatic nonfunctional tumor, which remains just an incidental finding at this time. She is likely symptomatic from her bradycardia and recent ischemic disease of the left caudate. The patient understands the above and concurs with the assessment and recommendations. All questions were answered. ADRYAN CASTRO M.D. GUMARO/[id number] MTDD
--- NOTE | 2016-07-26 15:54 | PN ---
Progress Note, Physician Chief Complaint: Pt is asymptomatic. 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 The patient reports feeling fine most of the day, completing normal daily activities. However, she reports she began feeling dizzy suddenly. [facility] nurse noted that patient was also weak. She was evaluated at [facility] and sent to the ED because of an irregular heart rate. Per EMS, the patient was going back and forth between normal and bradycardia. She reports a good appetite. She denies any prior cardiac issues. The patient denies chest pain, shortness of breath, palpitations, headache. The patient denies fever, chills, nausea, vomiting, diarrhea, and constipation. The patient denies dysuria, frequency, urgency, and hematuria. Patient has a DNR. PCP: Dr. Gilberto Irby Allergies: Penicillin, Morphine, Ibuprofen - Current Medication List Current Medications: Active Medications Allopurinol (Zyloprim -) 300 mg PO DAILY [facility] Last Admin: 07/26/16 10:08 Dose: 300 mg Amlodipine Besylate (Norvasc -) 5 mg PO DAILY [facility] Last Admin: 07/26/16 10:07 Dose: 5 mg Ezetimibe (Zetia -) 10 mg PO DAILY [facility] Last Admin: 07/26/16 10:07 Dose: 10 mg Heparin Sodium (Porcine) (Heparin -) 5,000 unit SQ BID [facility] Last Admin: 07/26/16 10:08 Dose: 5,000 unit Insulin Aspart (Novolog Vial Sliding Scale -) 1 vial SQ [facility] PRN Reason: Protocol Last Admin: 07/26/16 12:28 Dose: 2 units Insulin Detemir (Levemir Vial) 10 units SQ AM [facility] Last Admin: 07/26/16 06:20 Dose: 10 units Lisinopril (Prinivil) 5 mg PO DAILY [facility] Last Admin: 07/26/16 10:07 Dose: 5 mg Pantoprazole Sodium (Protonix -) 40 mg PO DAILY [facility] Last Admin: 07/26/16 10:07 Dose: 40 mg Sitagliptin Phosphate (Januvia -) 100 mg PO ACBK [facility] Last Admin: 07/26/16 06:19 Dose: 100 mg Tramadol HCl (Ultram -) 50 mg PO Q6H PRN PRN Reason: PAIN - Objective Vital Signs: Vital Signs Temperature 98.2 F 07/26/16 13:58 Pulse Rate 87 07/26/16 13:58 Respiratory Rate 20 07/26/16 13:58 Blood Pressure 150/98 07/26/16 13:58 O2 Sat by Pulse Oximetry (%) 95 07/26/16 09:06 Constitutional: Yes: Calm Eyes: Yes: WNL HENT: Yes: WNL Cardiovascular: Yes: Regular Rate and Rhythm Labs: CBC, BMP 07/25/16 06:00 07/25/16 06:00 INR, PTT INR 0.93 (0.82-1.09) 07/24/16 20:30 Problem List - Problems (1) CVA (cerebral vascular accident) Code(s): I63.9 - CEREBRAL INFARCTION, UNSPECIFIED Qualifiers: Precerebral and cerebral artery: unspecified precerebral artery (2) Dizziness Code(s): R42 - DIZZINESS AND GIDDINESS (3) EKG abnormalities Code(s): R94.31 - ABNORMAL ELECTROCARDIOGRAM [ECG] [EKG] (4) HTN (hypertension) Assessment/Plan: Start lisinopril 5 mg daily (HTN; DM). restart amlodiopine at 10 mg daily. Code(s): I10 - ESSENTIAL (PRIMARY) HYPERTENSION Qualifiers: Hypertension type: essential hypertension Qualified Code(s): I10 - Essential (primary) hypertension (5) Pituitary adenoma Code(s): D35.2 - BENIGN NEOPLASM OF PITUITARY GLAND (6) Second degree AV block Assessment/Plan: 2:1 AV conduction ;yesterday. EKG today: NSR. Telemetry: NSR. TSH WNL. Repleted magnesium; f/u level. Telemetry; serial EKG. Serkal TNI 0.02 x 2. Echo for LVEF, chamber sizes, wall motion, valve status. Code(s): I44.1 - ATRIOVENTRICULAR BLOCK, SECOND DEGREE
--- NOTE | 2016-07-26 16:17 | CONSULT ---
Consult - text type - Consultation Consultation Note: Thoracic surgery Pt will be scheduled for pacemaker early this week. ? Wednesday Full consult to follow.
[2016-07-26] MEDS ORDERED: amLODIPine BESYLATE 5 MG TABLET (FP) PO ONE (17:22)
--- NOTE | 2016-07-26 18:11 | EKG ---
Test Reason : Blood Pressure : / mmHG Vent. Rate : 078 BPM Atrial Rate : 078 BPM P-R Int : 158 ms QRS Dur : 136 ms QT Int : 430 ms P-R-T Axes : 017 035 035 degrees QTc Int : 490 ms NORMAL SINUS RHYTHM RIGHT BUNDLE BRANCH BLOCK POSSIBLE INFERIOR INFARCT , AGE UNDETERMINED ABNORMAL ECG WHEN COMPARED WITH ECG OF 25-JUL-2016 14:04, SINUS RHYTHM IS NO LONGER WITH 2ND DEGREE A-V BLOCK VENT. RATE HAS INCREASED BY 33 BPM QT HAS LENGTHENED Confirmed by DARRIAN CHUN MD ([id number]) on 07/26/2016 6:11:38 PM Referred By: Megha MARLOW Confirmed By:DARRIAN CHUN MD
[2016-07-26] MEDS: ATORVASTATIN CA 20 MG TABLET (FP) PO SCH (21:48)
[2016-07-27] MEDS: sitaGLIPtin PHOSPHATE 100 MG TABLET (FP) PO SCH (06:11)
[2016-07-27] MEDS: INSULIN SLIDING SCALE (NOVOLOG) 1 VIAL SQ SCH ×4 (06:12→22:27)
[2016-07-27] MEDS: INSULIN DETEMIR 100 UNITS/ML MDV SQ SCH (06:12)
--- NOTE | 2016-07-27 08:36 | PN ---
Progress Note (short form) - Note Progress Note: Awake, alert NAD Monitor-no AVB last night, occasional droped beats HCP Agreed with PPM-cassandra Perez Ms. Petty INR, PTT INR 0.93 (0.82-1.09) 07/24/16 20:[address] Burgos Vital Signs Temp 98.7 F 07/27/16 06:00 Pulse 74 07/27/16 06:00 Resp 19 07/27/16 06:00 BP 153/76 07/27/16 06:00 Pulse Ox 98 07/27/16 06:00 Intake & Output 07/26/16 07/26/16 07/27/16 11:59 23:59 11:59 Intake Total 260 140 140 Balance 260 140 140 Intake: IV 20 20 20 sl 10 10 10 sl #2 10 10 10 Oral 240 120 120 Other: Voiding Method Bedside Commode Incontinent # Unmeasured Voids Void 2 2 2 Bowel Movement Yes No No Lungs clear Heart S1S2 regular Abdomen soft NT Ext No CCE Laboratory Results - last 24 hr 07/25/16 07/25/16 07/26/16 15:50 21:45 12:22 POC Glucometer 219 Magnesium Cancelled 07/26/16 07/26/16 07/26/16 16:23 16:23 21:47 POC Glucometer 166 213 Magnesium Cancelled 07/27/16 07/27/16 05:19 05:35 POC Glucometer 196 Magnesium 1.3 L Current Active Problems Problem Status Diagnosed CVA (cerebral vascular accident) Acute Diabetes Acute Dizziness Acute EKG abnormalities Acute HTN (hypertension) Acute Pituitary adenoma Acute Second degree AV block Acute Tachy-amado syndrome Acute The administrative codes within the [employer] content you are accessing may have as of 02/29/2016. Please contact your IT Dept/Help Desk and request the latest Regulatory release be installed. 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
[2016-07-27] MEDS ORDERED: MAGNESIUM SULF 50% (8.12 MEQ/2 ML-1 GM VIAL) IVPB ONE (08:45)
[2016-07-27] MEDS: HEPARIN NA (PORCINE) 5,000 UNITS/ML 1ML VIAL SQ SCH (10:12)
[2016-07-27] MEDS: LISINOPRIL 5 MG TABLET (FP) PO SCH (10:13)
[2016-07-27] MEDS: EZETIMIBE 10 MG TABLET (FP) PO SCH (10:13)
[2016-07-27] MEDS: PANTOPRAZOLE 40 MG TABLET (FP) PO SCH (10:13)
[2016-07-27] MEDS: amLODIPine BESYLATE 10 MG TABLET (FP) PO SCH (10:13)
[2016-07-27] MEDS: ALLOPURINOL 300 MG TABLET (FP) PO SCH (10:13)
--- NOTE | 2016-07-27 10:33 | PN ---
Progress Note (short form) - Note Progress Note: full consulted dictated will plan insertion of pacemaker tomorrow morning risks, benefits, complications and alternatives discussed and understood will rescind DNR for perioperative period and then resume. Discussed with patient and pt's support system
--- NOTE | 2016-07-27 11:09 | PN ---
Progress Note, Physician History of Present Illness: seen and examined today in nad. no overnight events. no new complaints. - Current Medication List Current Medications: Active Medications Allopurinol (Zyloprim -) 300 mg PO DAILY [facility] Last Admin: 07/27/16 10:13 Dose: 300 mg Amlodipine Besylate (Norvasc -) 10 mg PO DAILY [facility] Last Admin: 07/27/16 10:13 Dose: 10 mg Atorvastatin Calcium (Lipitor -) 20 mg PO HS [facility] Last Admin: 07/26/16 21:48 Dose: 20 mg Ezetimibe (Zetia -) 10 mg PO DAILY [facility] Last Admin: 07/27/16 10:13 Dose: 10 mg Heparin Sodium (Porcine) (Heparin -) 5,000 unit SQ BID [facility] Last Admin: 07/27/16 10:12 Dose: 5,000 unit Insulin Aspart (Novolog Vial Sliding Scale -) 1 vial SQ ACHS [facility] PRN Reason: Protocol Last Admin: 07/27/16 06:12 Dose: Not Given Insulin Detemir (Levemir Vial) 10 units SQ AM [facility] Last Admin: 07/27/16 06:12 Dose: 10 units Lisinopril (Prinivil) 5 mg PO DAILY [facility] Last Admin: 07/27/16 10:13 Dose: 5 mg Pantoprazole Sodium (Protonix -) 40 mg PO DAILY [facility] Last Admin: 07/27/16 10:13 Dose: 40 mg Sitagliptin Phosphate (Januvia -) 100 mg PO ACBK [facility] Last Admin: 07/27/16 06:11 Dose: 100 mg Tramadol HCl (Ultram -) 50 mg PO Q6H PRN PRN Reason: PAIN Last Admin: 07/27/16 06:11 Dose: 50 mg - Objective Vital Signs: Vital Signs Temperature 98.7 F 07/27/16 06:00 Pulse Rate 74 07/27/16 06:00 Respiratory Rate 19 07/27/16 06:00 Blood Pressure 153/76 07/27/16 06:00 O2 Sat by Pulse Oximetry (%) 98 07/27/16 06:00 Constitutional: Yes: Well Nourished, No Distress, Calm Eyes: Yes: WNL, Conjunctiva Clear, EOM Intact, PERRL HENT: Yes: WNL, Atraumatic, Normocephalic Neck: Yes: WNL, Supple, Trachea Midline Cardiovascular: Yes: Regular Rate and Rhythm, S1, S2. No: Bradycardia, Tachycardia, Pulse Irregular, Bruit, JVD, Gallop, Murmur, Rub, S3, S4, Varicosities Respiratory: Yes: Regular, CTA Bilaterally. No: Rales, Rhonchi, Wheezes Gastrointestinal: Yes: WNL, Normal Bowel Sounds, Soft. No: Distention, Tenderness Musculoskeletal: Yes: WNL Extremities: Yes: WNL Edema: No Peripheral Pulses WNL: Yes Peripheral Pulses: Left Doralis Pedis: 2+, Right Dorsalis Pedis: 2+ Integumentary: Yes: WNL Neurological: Yes: Alert, Oriented Psychiatric: Yes: Alert, Oriented Labs: CBC, BMP 07/25/16 06:00 07/25/16 06:00 INR, PTT INR 0.93 (0.82-1.09) 07/24/16 20:30 - ....Imaging Chest X-ray: Report Reviewed, Image Reviewed EKG: Report Reviewed, Image Reviewed Other: Report Reviewed, Image Reviewed (tele-nsr, apcs, blocked apcs, episodes of 2:1 heart block with bradycardia last recorded event 07/25) Assessment/Plan 76 year old woman with a history of HTN, HLD, Parkinsons disease, dementia admitted with dizzienss, weakness, and noted to have episodes of bradycardia while at [place], found to have evidence of high degree heart block on tele. Symptomatic high degree heart block-2:1 heart block -no further episodes since 07/25 -agree that pt would benefit from PPM implantation, it has been scheduled for tomorrow -avoid AV jami blockers -f/up echo today to evaluate LV function prior to ppm -replete electrolytes -TSH wnl -cardiac enzymes wnl HTN-adequately controlled -cont lisinopril and norvasc
--- NOTE | 2016-07-27 13:16 | CONS ---
DATE OF CONSULTATION: 07/27/2016 HISTORY: The patient is a 76-year-old female with a history of Parkinson's, diabetes, hypertension, gout, spinal stenosis, and some early memory loss, who presented to the emergency room from [facility] via EMS when she was noted to be dizzy and lightheaded. She states she had been feeling well most of the day, however, she began to feel dizzy and lightheaded and weak. She was brought to the emergency room and found to have an irregular heart rate. She also was found to be bradycardic. She denied any previous cardiac history. She denied any shortness of breath, orthopnea, palpitations, chest pain, fevers, chills, diarrhea. She reports allergies to PENICILLIN, MORPHINE, and IBUPROFEN. She has a history of a CVA. PHYSICAL EXAMINATION: General: She is a well-developed, well-nourished female. HEENT: Unremarkable. Lungs: Clear. Heart: S1, S2, slightly bradycardic, without any rub. There is no jugular venous distention. There are no bruits appreciated. There is a weak grade 1 systolic murmur appreciated. Extremities: Full range of motion. There are diminished pulses peripherally. Neurologic: Grossly intact. White count is 9.7 with a hemoglobin of 14 and hematocrit 42, platelet count 242,000, INR is 0.93 with a PTT of 33.9. Glucose is slightly elevated. EKG shows intermittent AV block with a sinus bradycardia. IMPRESSION: Symptomatic bradycardia. We have been asked to insert a permanent pacemaker. I will speak with Cardiology as to whether they want a DDDR or VVIR. The risks, benefits, complications, and alternatives have been discussed at length and in detail with the patient and their ict support and test engineers, who understand and accept these and have asked that we proceed with surgery. MD ASIF ELLIOTT/[id number]
[2016-07-27] MEDS: ATORVASTATIN CA 20 MG TABLET (FP) PO SCH (22:27)
[2016-07-28 00:07] LABS: PROLACTIN 14.7 ng/mL (4.8-23.3)
[2016-07-28] MEDS: INSULIN SLIDING SCALE (NOVOLOG) 1 VIAL SQ SCH ×4 (06:28→22:03)
[2016-07-28] MEDS ORDERED: LIDOCAINE HCL 1%, 10 MG/ML (20ML VIAL) ONE (08:30)
[2016-07-28] MEDS: amLODIPine BESYLATE 10 MG TABLET (FP) PO SCH ×2 (08:45→09:12)
[2016-07-28] MEDS: LISINOPRIL 5 MG TABLET (FP) PO SCH ×2 (08:45→09:12)
[2016-07-28] MEDS: ALLOPURINOL 300 MG TABLET (FP) PO SCH (09:12)
[2016-07-28] MEDS: EZETIMIBE 10 MG TABLET (FP) PO SCH (09:12)
[2016-07-28] MEDS: PANTOPRAZOLE 40 MG TABLET (FP) PO SCH (09:12)
[2016-07-28] MEDS ORDERED: BUPIVACAINE HCL/PF 0.25% (2.5MG/ML) 10 ML VIAL ONE (09:14)
[2016-07-28] MEDS ORDERED: MIDAZOLAM HCL 2 MG/2 ML SINGLE DOSE VIAL ONE (09:14)
[2016-07-28] MEDS ORDERED: PROMETHAZINE HCL 25 MG/1 ML VIAL IVPUSH PRN ×2 (09:21→11:50)
[2016-07-28] MEDS ORDERED: ONDANSETRON 4 MG/2 ML VIAL IVPUSH PRN ×2 (09:21→11:50)
[2016-07-28] MEDS ORDERED: CLINDAMYCIN 600 MG PREMIX BAG IVPB ONE (09:30)
[2016-07-28] MEDS ORDERED: SODIUM CHLORIDE 1,000 ML IV SCH (09:30)
[2016-07-28] MEDS ORDERED: CLINDAMYCIN PHOSPHATE 600 MG/4 ML VIAL ONE (09:31)
[2016-07-28 09:41] LABS: CALCIUM 9.6 mg/dL (8.5-10.1); CREATININE 0.8 mg/dL (0.55-1.02); MAGNESIUM 1.6 mg/dL (1.8-2.4)
[2016-07-28] MEDS ORDERED: LIDOCAINE HCL 1%, 10 MG/ML (20ML VIAL) IJ ONE (09:41)
[2016-07-28] MEDS ORDERED: BUPIVACAINE HCL/PF 0.25% (2.5MG/ML) 10 ML VIAL IJ ONE (09:41)
[2016-07-28] MEDS ORDERED: BACITRACIN 50,000 UNITS VIAL NR ONE (09:41)
--- NOTE | 2016-07-28 09:45 | PN ---
Progress Note, Physician History of Present Illness: seen and examined this am in nad. no overnight events. no new complaints. - Current Medication List Current Medications: Active Medications Allopurinol (Zyloprim -) 300 mg PO DAILY [facility] Last Admin: 07/28/16 09:12 Dose: Not Given Amlodipine Besylate (Norvasc -) 10 mg PO DAILY [facility] Last Admin: 07/28/16 09:12 Dose: Not Given Atorvastatin Calcium (Lipitor -) 20 mg PO HS [facility] Last Admin: 07/27/16 22:27 Dose: 20 mg Ezetimibe (Zetia -) 10 mg PO DAILY [facility] Last Admin: 07/28/16 09:12 Dose: Not Given Fentanyl (Sublimaze Injection -) 50 mcg IVPUSH [id number] PRN PRN Reason: PAIN Stop: 07/31/16 09:22 Heparin Sodium (Porcine) (Heparin -) 5,000 unit SQ BID [facility] Last Admin: 07/27/16 10:12 Dose: 5,000 unit Sodium Chloride (Normal Saline -) 1,000 mls @ 75 mls/hr IV ASDIR [facility] Insulin Aspart (Novolog Vial Sliding Scale -) 1 vial SQ ACHS [facility] PRN Reason: Protocol Last Admin: 07/28/16 06:28 Dose: Not Given Insulin Detemir (Levemir Vial) 10 units SQ AM [facility] Last Admin: 07/27/16 06:12 Dose: 10 units Lisinopril (Prinivil) 5 mg PO DAILY [facility] Last Admin: 07/28/16 09:12 Dose: Not Given Ondansetron HCl (Zofran Injection) 4 mg IVPUSH Q6H PRN PRN Reason: NAUSEA AND/OR VOMITING Stop: 07/28/16 15:22 Pantoprazole Sodium (Protonix -) 40 mg PO DAILY [facility] Last Admin: 07/28/16 09:12 Dose: Not Given Promethazine HCl (Phenergan Injection -) 12.5 mg IVPUSH Q6H PRN PRN Reason: NAUSEA Stop: 07/28/16 15:22 Sitagliptin Phosphate (Januvia -) 100 mg PO ACBK [facility] Last Admin: 07/27/16 06:11 Dose: 100 mg Tramadol HCl (Ultram -) 50 mg PO Q6H PRN PRN Reason: PAIN Last Admin: 07/27/16 06:11 Dose: 50 mg - Objective Vital Signs: Vital Signs Temperature 97.8 F 07/28/16 08:47 Pulse Rate 66 07/28/16 08:47 Respiratory Rate 18 07/28/16 08:47 Blood Pressure 125/78 07/28/16 08:47 O2 Sat by Pulse Oximetry (%) 95 07/28/16 08:47 Constitutional: Yes: Well Nourished, No Distress, Calm Eyes: Yes: WNL, Conjunctiva Clear, EOM Intact, PERRL HENT: Yes: WNL, Atraumatic, Normocephalic Neck: Yes: WNL, Supple, Trachea Midline Cardiovascular: Yes: Regular Rate and Rhythm, S1, S2. No: Bradycardia, Tachycardia, Pulse Irregular, Bruit, JVD, Gallop, Murmur, Rub, S3, S4, Varicosities Respiratory: Yes: Regular, CTA Bilaterally. No: Rales, Rhonchi, Wheezes Gastrointestinal: Yes: Normal Bowel Sounds, Soft. No: Distention, Tenderness Musculoskeletal: Yes: WNL Extremities: Yes: WNL Edema: No Peripheral Pulses WNL: Yes Peripheral Pulses: Left Doralis Pedis: 2+, Right Dorsalis Pedis: 2+ Integumentary: Yes: WNL Neurological: Yes: Alert, Oriented Psychiatric: Yes: Alert, Oriented Labs: CBC, BMP 07/25/16 06:00 INR, PTT INR 0.93 (0.82-1.09) 07/24/16 20:30 - ....Imaging Chest X-ray: Report Reviewed, Image Reviewed EKG: Report Reviewed, Image Reviewed Other: Report Reviewed, Image Reviewed (tele-nsr, apcs, no further episodes of high degree heart block) Assessment/Plan 76 year old woman with a history of HTN, HLD, Parkinsons disease, dementia admitted with dizzienss, weakness, and noted to have episodes of bradycardia while at [place], found to have evidence of high degree heart block on tele. Symptomatic high degree heart block-2:1 heart block -no further episodes since 07/25 -to proceed for PPM implantation today -avoid AV jami blockers until after PPM placed -echo showed normal LV systolic function -replete electrolytes -TSH wnl -cardiac enzymes wnl HTN-adequately controlled -cont lisinopril and norvasc
--- NOTE | 2016-07-28 10:48 | PN ---
Progress Note (short form) - Note Progress Note: Pt went for PPM today. Seen in RR -dressing left chest intact Awake, alert. Lungs B/L BS. Clear Heart S1S2 regular Abdome soft, NT Ext-no CCE Vital Signs (72 hours) 07/25/16 07/25/16 07/25/16 14:00 18:00 21:00 Temperature 98.1 F Pulse Rate 45 L 45 L Respiratory 18 18 Rate Blood Pressure 150/71 146/65 O2 Sat by Pulse 90 L Oximetry (%) 07/25/16 07/26/16 07/26/16 22:00 01:47 06:00 Temperature 97.5 F L 97.9 F 98.1 F Pulse Rate 48 L 62 69 Respiratory 18 18 18 Rate Blood Pressure 142/71 158/88 154/83 O2 Sat by Pulse 90 L 95 Oximetry (%) 07/26/16 07/26/16 07/26/16 09:01 09:06 13:58 Temperature 98.2 F Pulse Rate 80 87 Respiratory 20 20 Rate Blood Pressure 143/83 150/98 O2 Sat by Pulse 95 Oximetry (%) 07/26/16 07/26/16 07/26/16 18:00 21:00 22:00 Temperature 98.2 F 97.9 F Pulse Rate 91 H 81 Respiratory 19 19 Rate Blood Pressure 133/84 147/84 O2 Sat by Pulse 95 94 L Oximetry (%) 07/27/16 07/27/16 07/27/16 02:00 06:00 09:00 Temperature 98.0 F 98.7 F Pulse Rate 94 H 74 Respiratory 19 19 Rate Blood Pressure 142/62 153/76 O2 Sat by Pulse 98 95 Oximetry (%) 07/27/16 07/27/16 07/27/16 10:00 14:37 17:00 Temperature 98.2 F 98.4 F 98.1 F Pulse Rate 72 96 H 73 Respiratory 14 18 20 Rate Blood Pressure 142/92 132/80 112/71 O2 Sat by Pulse Oximetry (%) 07/27/16 07/27/16 07/28/16 20:27 22:00 02:00 Temperature 97.9 F 98.5 F Pulse Rate 81 80 Respiratory 20 20 18 Rate Blood Pressure 120/77 124/87 O2 Sat by Pulse 94 L 94 L Oximetry (%) 07/28/16 07/28/16 05:23 08:47 Temperature 97.2 F L 97.8 F Pulse Rate 65 66 Respiratory 18 18 Rate Blood Pressure 127/69 125/78 O2 Sat by Pulse 95 Oximetry (%) Current Medications Generic Name Dose Route Start Last Admin Trade Name Freq PRN Reason Stop Dose Admin Allopurinol 300 mg 07/25/16 10:00 07/28/16 09:12 Zyloprim - PO Not Given DAILY [facility] Amlodipine Besylate 10 mg 07/27/16 10:00 07/28/16 09:12 Norvasc - PO Not Given DAILY [facility] Atorvastatin Calcium 20 mg 07/26/16 22:00 07/27/16 22:27 Lipitor - PO 20 mg HS [facility] Administration Ezetimibe 10 mg 07/25/16 10:00 07/28/16 09:12 Zetia - PO Not Given DAILY [facility] Fentanyl 50 mcg 07/28/16 09:21 Sublimaze Injection - IVPUSH 07/31/16 09:22 [id number] PRN PAIN Heparin Sodium (Porcine) 5,000 unit 07/25/16 10:00 07/27/16 10:12 Heparin - SQ 5,000 unit BID [facility] Administration Sodium Chloride 1,000 mls @ 75 mls/hr 07/28/16 09:30 Normal Saline - IV ASDIR [facility] Insulin Aspart 1 vial 07/25/16 07:00 07/28/16 10:01 Novolog Vial Sliding Scale - SQ Not Given ACHS [facility] Protocol Insulin Detemir 10 units 07/25/16 07:00 07/27/16 06:12 Levemir Vial SQ 10 units AM [facility] Administration Lisinopril 5 mg 07/26/16 10:00 07/28/16 09:12 Prinivil PO Not Given DAILY [facility] Ondansetron HCl 4 mg 07/28/16 09:21 Zofran Injection IVPUSH 07/28/16 15:22 Q6H PRN NAUSEA AND/OR VOMITING Pantoprazole Sodium 40 mg 07/25/16 10:00 07/28/16 09:12 Protonix - PO Not Given DAILY [facility] Promethazine HCl 12.5 mg 07/28/16 09:21 Phenergan Injection - IVPUSH 07/28/16 15:22 Q6H PRN NAUSEA Sitagliptin Phosphate 100 mg 07/25/16 07:00 07/27/16 06:11 Januvia - PO 100 mg ACBK [facility] Administration Tramadol HCl 50 mg 07/24/16 22:03 07/27/16 06:11 Ultram - PO 50 mg Q6H PRN Administration PAIN Current Active Problems Problem Status Diagnosed CVA (cerebral vascular accident) Acute Diabetes Acute Dizziness Acute EKG abnormalities Acute HTN (hypertension) Acute Pituitary adenoma Acute Second degree AV block Acute Tachy-amado syndrome Acute Plan Acute Echo noted Cardiology f/u appreciated. Will follow , post PPM-telemetry. 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
--- NOTE | 2016-07-28 10:51 | OP ---
Operative Note - Note: Operative Date: 07/28/16 Pre-Operative Diagnosis: heart block Operation: insertion of dddr pacemaker Findings: good capture both leads Implants: dddr pacemaker with a and v leads Post-Operative Diagnosis: Same as Pre-op Surgeon: Chris Burgos Anesthesiologist/OIL MIXER: Carlos Alberto Trent Anesthesia: Local, Fractional Estimated Blood Loss (mls): 50 Operative Report Dictated: Yes
[2016-07-28] MEDS ORDERED: OXYCODONE/APAP 5/325MG COMBO TABLET PO PRN (10:57)
[2016-07-28] MEDS ORDERED: MAGNESIUM SULF 50% (8.12 MEQ/2 ML-1 GM VIAL) IVPB ONE ×3 (11:30→12:08)
[2016-07-28] MEDS ORDERED: ACETAMINOPHEN 325 MG TABLET (FP) PO PRN (11:48)
[2016-07-28] MEDS ORDERED: oxyCODONE HCL 5 MG TABLET PO PRN (11:48)
[2016-07-28] MEDS ORDERED: traMADol HCL 50 MG TABLET PO PRN (11:50)
[2016-07-28] MEDS ORDERED: MAGNESIUM SULF 50% (8.12 MEQ/2 ML-1 GM VIAL) ONE (11:54)
--- NOTE | 2016-07-28 12:41 | EKG ---
Test Reason : Blood Pressure : / mmHG Vent. Rate : 073 BPM Atrial Rate : 073 BPM P-R Int : 166 ms QRS Dur : 136 ms QT Int : 428 ms P-R-T Axes : 032 022 023 degrees QTc Int : 471 ms NORMAL SINUS RHYTHM INCOMPLETE RIGHT BUNDLE BRANCH BLOCK WHEN COMPARED WITH ECG OF 26-JUL-2016 10:20, NO SIGNIFICANT CHANGE WAS FOUND Confirmed by SIVA SALMERON MD ([id number]) on 07/28/2016 12:41:10 PM Referred By: Confirmed By:SIVA SALMERON MD
--- NOTE | 2016-07-28 16:31 | OP ---
DATE OF OPERATION: 07/28/2016 SURGEON: Chris Burgos MD PREOPERATIVE DIAGNOSIS: Atrioventricular block with bradycardia. POSTOPERATIVE DIAGNOSIS: Atrioventricular block with bradycardia. PROCEDURE: Insertion of permanent DDDR permanent pacemaker. FINDINGS: A [employer] DDDR permanent pacemaker model A2DR01, serial number [id number] was inserted using a bipolar MRI-compatible ventricular lead model 4076, serial number [id number] and a bipolar screw and MRI-compatible atrial lead model 4076, serial number [id number]. P waves measured 2 millivolts with an atrial output of 1 volt and atrial current of 0.5 milliamps and atrial resistance of 417 ohms. Right waves measured 9 millivolts with a ventricular output of 0.75 volts and ventricular current of 0.4 milliamps and ventricular resistance of 418 ohms. DESCRIPTION OF PROCEDURE: Within 1 hour of surgery, the patient was given 600 mg of clindamycin intravenously and then transferred to the OR table. The left chest and neck were then prepped and draped in the usual sterile fashion. The left deltopectoral groove was infiltrated with a 50/50 solution of 1% Xylocaine and 0.25% Marcaine with epinephrine, and an oblique incision was made in the left deltopectoral groove. The incision was carried down to the subcutaneous tissues. Hemostasis was obtained with electrocoagulation. The cephalic vein was identified running within the deltopectoral fat pad and the cephalic vein dissected free and encircled proximal and distally. A pocket was then made inferior to the cephalic vein over the pectoralis major muscle, and after hemostasis was checked and found to be adequate, it was packed with an antibiotic-soaked sponge. The distal tie was tied on the cephalic vein, and an anterior venotomy was performed. Initial attempt to introduce the lead to the cephalic vein was unsuccessful. The guidewire was then introduced; however, it continued to go down the left internal mammary vein. A Glidewire was then introduced and was successfully directed down into the superior vena cava and into the right atrium. A 7-mm breakaway sheath was then introduced over the Glidewire under fluoroscopic guidance. A 2nd Glidewire was then introduced through the 7-mm breakaway sheath and directed into the right atrium. The breakaway sheath was then withdrawn and reinserted over the 1st Glidewire, and the Glidewire withdrawn. The ventricular lead was then introduced through the 7-mm breakaway sheath and directed into the right atrium. Using a curve, the electrode was positioned through the tricuspid valve, and using a straight guidewire, it was positioned in the right ventricular apex. The screw was released with good capture, and the guidewire withdrawn from the lead. The electrode was checked with the above-mentioned parameters obtained. The sheath was then removed, and a 2nd 7-mm breakaway sheath was introduced over the atrial Glidewire under fluoroscopic guidance, and the Glidewire and dilator withdrawn. The atrial lead was introduced through the 7-mm sheath and directed into the right atrium. Using a preformed J wire, the electrode was positioned in what appeared to be the anterolateral wall of the right atrial appendage, and the screw was released with good capture. The electrode was checked with the above-mentioned parameters obtained. The breakaway sheath was withdrawn, and the J wire was withdrawn. The electrode was again checked with the above-mentioned parameters obtained. The patient was checked in DDD pacing and noted to pace and sense appropriately. The proximal tie was tied on the cephalic vein. The rubber was brought down to the insertion site and to the pectoralis major muscle using 2-0 silk sutures. The antibiotic sponge was withdrawn from the premade pocket. The electrodes were again checked with no change in measured parameters. No change in position of the leads on fluoroscopy. The electrodes were connected to the generator and placed in the premade pocket, and the patient was noted to be pacing and sensing appropriately. The pacemaker was again checked and found to be functioning appropriately. Hemostasis was checked and found to be adequate. The incision was closed in layers. The subcutaneous tissues were closed with a running 3-0 Vicryl suture, and the skin was closed with running 3-0 Vicryl subcuticular suture. Dermabond and a sterile dressing were applied. ESTIMATED BLOOD LOSS: Minimal. COMPLICATIONS: None. COUNTS: Sponge, needle, and instrument count were correct at the conclusion of the procedure. Patient tolerated the procedure well and was sent to recovery room in stable, satisfactory condition. Postoperative chest x-ray showed the leads in good position with no evidence of pneumothorax. MD ASIF ELLIOTT/[id number]
[2016-07-28] MEDS ORDERED: ATORVASTATIN CA 20 MG TABLET (FP) PO SCH (22:00)
[2016-07-28] MEDS: HEPARIN NA (PORCINE) 5,000 UNITS/ML 1ML VIAL SQ SCH (22:04)
--- NOTE | 2016-07-28 23:46 | PN ---
Progress Note, Physician Chief Complaint: pituitary tumor History of Present Illness: [id number] with dm,pituitary macroadenoma,has non functioning pituitary adenoma, denies headache or vision loss - Current Medication List Current Medications: Active Medications Acetaminophen (Tylenol -) 325 mg PO Q6H PRN PRN Reason: PAIN LEVEL 6-10 Allopurinol (Zyloprim -) 300 mg PO DAILY [facility] Amlodipine Besylate (Norvasc -) 10 mg PO DAILY [facility] Atorvastatin Calcium (Lipitor -) 20 mg PO HS [facility] Last Admin: 07/28/16 22:03 Dose: 20 mg Ezetimibe (Zetia -) 10 mg PO DAILY [facility] Heparin Sodium (Porcine) (Heparin -) 5,000 unit SQ BID [facility] Last Admin: 07/28/16 22:04 Dose: 5,000 unit Insulin Aspart (Novolog Vial Sliding Scale -) 1 vial SQ ACHS [facility] PRN Reason: Protocol Last Admin: 07/28/16 22:03 Dose: 4 units Insulin Detemir (Levemir Vial) 10 units SQ AM [facility] Lisinopril (Prinivil) 5 mg PO DAILY [facility] Oxycodone HCl (Roxicodone -) 5 mg PO Q6H PRN PRN Reason: PAIN LEVEL 6-10 Pantoprazole Sodium (Protonix -) 40 mg PO DAILY [facility] Sitagliptin Phosphate (Januvia -) 100 mg PO ACBK [facility] Tramadol HCl (Ultram -) 50 mg PO Q6H PRN PRN Reason: PAIN - Objective Vital Signs: Vital Signs Temperature 98 F 07/28/16 22:00 Pulse Rate 79 07/28/16 22:00 Respiratory Rate 20 07/28/16 22:00 Blood Pressure 134/91 07/28/16 22:00 O2 Sat by Pulse Oximetry (%) 96 07/28/16 22:00 Constitutional: Yes: Calm Eyes: Yes: EOM Intact HENT: Yes: Normocephalic Neck: Yes: Trachea Midline Cardiovascular: Yes: Bradycardia Respiratory: Yes: CTA Bilaterally Gastrointestinal: Yes: Normal Bowel Sounds ...Rectal Exam: Yes: Deferred Genitourinary: Yes: WNL Breast(s): Yes: WNL Edema: No Neurological: Yes: WNL, Alert, Babinski negative Labs: CBC, BMP 07/25/16 06:00 07/28/16 09:00 INR, PTT INR 0.93 (0.82-1.09) 07/24/16 20:30 Problem List - Problems (1) CVA (cerebral vascular accident) Code(s): I63.9 - CEREBRAL INFARCTION, UNSPECIFIED (2) Diabetes Code(s): E11.9 - TYPE 2 DIABETES MELLITUS WITHOUT COMPLICATIONS (3) HTN (hypertension) Code(s): I10 - ESSENTIAL (PRIMARY) HYPERTENSION Qualifiers: Qualified Code(s): I10 - Essential (primary) hypertension (4) Pituitary adenoma Code(s): D35.2 - BENIGN NEOPLASM OF PITUITARY GLAND Assessment/Plan Current Active Problems CVA (cerebral vascular accident) (Acute) Diabetes (Acute) Dizziness (Acute) EKG abnormalities (Acute) HTN (hypertension) (Acute) Pituitary adenoma (Acute) Second degree AV block (Acute) Tachy-amado syndrome (Acute) The administrative codes within the [facility] content you are accessing may have as of 02/29/2016. Please contact your IT Dept/Help Desk and request the latest Regulatory release be installed. IT Dept/Help Desk- Please refer to our FAQ page ([email or web address]) or contact [facility] Customer Support at [email or web address] (Acute) Non functioning pituitary adenoma size as seen on mri not affecting other structures prolactin normal may benifet from cabergoline therapy .5mg biweekly and survailance ct scan in future
[2016-07-29 00:06] LABS: ADRENOCORTICOTROPIC HORMONE 24.8 pg/mL (7.2-63.3)
[2016-07-29 05:21] VITALS: TEMP 97.5
[2016-07-29] MEDS: INSULIN SLIDING SCALE (NOVOLOG) 1 VIAL SQ SCH (06:04)
[2016-07-29] MEDS ORDERED: sitaGLIPtin PHOSPHATE 100 MG TABLET (FP) PO SCH (07:00)
[2016-07-29] MEDS ORDERED: INSULIN DETEMIR 100 UNITS/ML MDV SQ SCH (07:00)
--- NOTE | 2016-07-29 08:21 | PN ---
Progress Note (short form) - Note Progress Note: Awake, alert post DDDR PPM-awake, alert, NAD Dressing dry, clean Lungs are clear Heart S1S2 regular Abdomen soft, NT Laboratory Results - last 24 hr 07/25/16 07/28/16 07/28/16 18:50 09:00 11:59 Sodium 139 Potassium 4.1 Chloride 104 Carbon Dioxide 26 Anion Gap 9 BUN 31 H D Creatinine 0.8 POC Glucometer 215 Random Glucose 229 H D Calcium 9.6 Magnesium 1.6 L D ACTH 24.8 07/28/16 07/28/16 15:36 21:30 Sodium Potassium Chloride Carbon Dioxide Anion Gap BUN Creatinine POC Glucometer 320 292 Random Glucose Calcium Magnesium ACTH Imp Current Active Problems Problem Status Diagnosed CVA (cerebral vascular accident) Acute Diabetes type 2 Acute Dizziness Acute EKG abnormalities Acute HTN (hypertension) Acute Pituitary [id number] Acute Second degree AV block- DDDR PPM implanted 07/28/16 Acute Tachy-amado syndrome Acute Parkinson-mild LS spinal stenosis Plan D/C to [facility]. Will follow at [facility]. 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
--- NOTE | 2016-07-29 08:27 | DS ---
Physical Examination Vital Signs: Vital Signs Temperature 97.5 F L 07/29/16 05:20 Pulse Rate 82 07/29/16 05:20 Respiratory Rate 20 07/29/16 05:20 Blood Pressure 151/84 07/29/16 05:20 O2 Sat by Pulse Oximetry (%) 96 07/28/16 22:00 Constitutional: Yes: No Distress, Calm HENT: Yes: Atraumatic, Normocephalic Neck: Yes: Supple, Trachea Midline Cardiovascular: Yes: Regular Rate and Rhythm Respiratory: Yes: Regular, CTA Bilaterally Gastrointestinal: Yes: Normal Bowel Sounds, Soft ...Rectal Exam: Yes: Deferred Renal/: No: Anuria, Bladder Distention Breast(s): Yes: WNL Musculoskeletal: No: Joint Stiffness, Joint Swelling Extremities: No: Amputation, Calf Tenderness, Cold, Cyanosis Edema: No Wound/Incision: Yes: Dressing Dry and Intact (Left chest s/p PPM) Neurological: Yes: Alert, Oriented. No: Aphasia, Dysarthria ...Motor Strength: WNL Psychiatric: Yes: Alert, Oriented. No: Agitated, Suicidal Ideation Labs: CBC, BMP 07/25/16 06:00 07/28/16 09:00 Discharge Summary Reason For Visit: AVB 2degree, CVA, pituitary adenoma, DM Current Active Problems CVA (cerebral vascular accident) (Acute) Diabetes (Acute) Dizziness (Acute) EKG abnormalities (Acute) HTN (hypertension) (Acute) Pituitary adenoma (Acute) Second degree AV block (Acute) Tachy-amado syndrome (Acute) The administrative codes within the [facility] content you are accessing may have as of 02/29/2016. Please contact your IT Dept/Help Desk and request the latest Regulatory release be installed. IT Dept/Help Desk- Please refer to our FAQ page ([email or web address] or contact [facility] Customer Support at [email or web address] (Acute) - Instructions Referrals: Gilberto Irby MD [Primary Care Provider] - Disposition: [facility] - Home Medications Comprehensive Discharge Medication List: Ambulatory Orders Allopurinol 300 mg PO DAILY 07/21/15 Enoxaparin Sodium [Lovenox] 40 mg SQ DAILY 07/21/15 Ezetimibe [Zetia] 10 mg PO DAILY 07/21/15 Insulin Lispro [Humalog] 8 unit SQ BID 07/21/15 Metformin HCl [Glucophage] 1,000 mg PO BID 07/21/15 Pantoprazole Sodium [Protonix] 40 mg PO DAILY 07/21/15 Sitagliptin Phosphate [Januvia] 100 mg PO DAILY 07/21/15 Tramadol HCl 50 mg PO QID PRN 07/21/15
--- NOTE | 2016-07-29 08:45 | PN ---
Progress Note (short form) - Note Progress Note: Pt with no complaints this am minimal discomfort at incision Vital Signs Period Temp Pulse Resp BP Sys/Doyle Pulse Ox Last 24 Hr 96 F-98.5 F 66-90 16-20 116-151/67-96 95-96 Vital Signs - 8 hr 07/29/16 07/29/16 04:07 05:20 Temperature 96 F L 97.5 F L Pulse Rate 77 82 Respiratory 20 20 Rate Blood Pressure 142/96 151/84 Current Medications Acetaminophen (Tylenol -) 325 mg PO Q6H PRN PRN Reason: PAIN LEVEL 6-10 Allopurinol (Zyloprim -) 300 mg PO DAILY [facility] Amlodipine Besylate (Norvasc -) 10 mg PO DAILY [facility] Atorvastatin Calcium (Lipitor -) 20 mg PO HS [facility] Last Admin: 07/28/16 22:03 Dose: 20 mg Ezetimibe (Zetia -) 10 mg PO DAILY [facility] Heparin Sodium (Porcine) (Heparin -) 5,000 unit SQ BID [facility] Last Admin: 07/28/16 22:04 Dose: 5,000 unit Insulin Aspart (Novolog Vial Sliding Scale -) 1 vial SQ ACHS [facility] PRN Reason: Protocol Last Admin: 07/29/16 06:04 Dose: Not Given Insulin Detemir (Levemir Vial) 10 units SQ AM [facility] Last Admin: 07/29/16 06:09 Dose: 10 units Lisinopril (Prinivil) 5 mg PO DAILY [facility] Oxycodone HCl (Roxicodone -) 5 mg PO Q6H PRN PRN Reason: PAIN LEVEL 6-10 Pantoprazole Sodium (Protonix -) 40 mg PO DAILY [facility] Sitagliptin Phosphate (Januvia -) 100 mg PO ACBK [facility] Last Admin: 07/29/16 06:08 Dose: 100 mg Tramadol HCl (Ultram -) 50 mg PO Q6H PRN PRN Reason: PAIN Intake & Output 07/26/16 07/27/16 07/28/16 07/29/16 23:59 23:59 23:59 23:59 Intake Total 400 590 800 50 Output Total 400 50 Balance 400 190 750 50 Laboratory Last Values WBC 9.7 K/mm3 (4.0-10.0) 07/25/16 06:00 RBC 4.73 M/mm3 (3.60-5.2) 07/25/16 06:00 Hgb 14.0 GM/dL (10.7-15.3) 07/25/16 06:00 Hct 42.4 % (32.4-45.2) 07/25/16 06:00 MCV 89.6 fl (80-96) 07/25/16 06:00 MCHC 32.9 g/dl (32.0-36.0) 07/25/16 06:00 RDW 14.3 % (11.6-15.6) 07/25/16 06:00 Plt Count 242 K/MM3 (134-434) 07/25/16 06:00 MPV 8.0 fl (7.5-11.1) 07/25/16 06:00 Neutrophils % 65.3 % (42.8-82.8) 07/25/16 06:00 Lymphocytes % 26.1 % (8-40) 07/25/16 06:00 Monocytes % 6.0 % (3.8-10.2) 07/25/16 06:00 Eosinophils % 1.8 % (0-4.5) 07/25/16 06:00 Basophils % 0.8 % (0-2.0) 07/25/16 06:00 INR 0.93 (0.82-1.09) 07/24/16 20:30 PTT (Actin FS) 33.9 SECONDS (26.9-34.4) 07/24/16 20:30 Sodium 139 mmol/L (136-145) 07/28/16 09:00 Potassium 4.1 mmol/L (3.5-5.1) 07/28/16 09:00 Chloride 104 mmol/L (98-107) 07/28/16 09:00 Carbon Dioxide 26 mmol/L (21-32) 07/28/16 09:00 Anion Gap 9 (8-16) 07/28/16 09:00 BUN 31 mg/dL (7-18) H D 07/28/16 09:00 Creatinine 0.8 mg/dL (0.55-1.02) 07/28/16 09:00 Creat Clearance w eGFR > 60 (>60) 07/25/16 06:00 POC Glucometer 292 UNITS (()) 07/28/16 21:30 Random Glucose 229 mg/dL (74-106) H D 02/28/17 09:00 Hemoglobin A1c % 6.2 % (4.8-6.0) H 07/25/16 06:00 Calcium 9.6 mg/dL (8.5-10.1) 07/28/16 09:00 Phosphorus 3.5 mg/dL (2.5-4.9) 07/25/16 06:00 Magnesium 1.6 mg/dL (1.8-2.4) L D 07/28/16 09:00 Total Bilirubin 0.4 mg/dL (0.2-1.0) D 07/25/16 06:00 AST 14 U/L (15-37) L D 07/25/16 06:00 ALT 19 U/L (12-78) D 07/25/16 06:00 Alkaline Phosphatase 99 U/L (45-117) 07/25/16 06:00 Creatine Kinase 37 IU/L (26-192) 07/25/16 21:45 Troponin I < 0.02 ng/ml (0.00-0.05) 07/25/16 21:45 Total Protein 6.8 g/dl (6.4-8.2) 07/25/16 06:00 Albumin 3.3 g/dl (3.4-5.0) L 07/25/16 06:00 Triglycerides 401 mg/dL (35-160) H 07/25/16 06:00 Cholesterol 215 mg/dL (50-200) H 07/25/16 06:00 Total LDL Cholesterol 127 mg/dL (5-100) H 07/25/16 06:00 HDL Cholesterol 46 mg/dL (40-60) 07/25/16 06:00 TSH 3.12 uIU/ml (0.358-3.74) 07/25/16 06:00 Prolactin 14.7 ng/ml (4.8-23.3) 07/25/16 18:50 Cortisol AM Sample 5.4 ug/dL (.) 07/25/16 18:50 Cortisol PM Sample 5.1 ug/dL (2.3-11.9) 07/25/16 18:50 ACTH 24.8 PG/ML (7.2-63.3) 07/25/16 18:50 Anti-A Titer Cancelled 07/24/16 20:30 Blood Type Cancelled 07/24/16 20:30 Antibody Screen Cancelled 07/24/16 20:30 Spec Expiration Date Cancelled 07/24/16 20:30 dressing intact and dry pt appears to be in own rhythm and rate with pacer sensing surgically stable dressing can be removed in am, then may wash area with soap and water f/u in office in 2-3 weeks
--- NOTE | 2016-07-29 08:54 | PN ---
Progress Note (short form) - Note Progress Note: Anesthesia postop note 76 y/o F s/p MAC for pacemaker insertion POD#1, vss, aaox3, no complaints. No anesthesia complications.
[2016-07-29] MEDS: HEPARIN NA (PORCINE) 5,000 UNITS/ML 1ML VIAL SQ SCH (09:06)
--- NOTE | 2016-07-29 09:15 | PN ---
Progress Note, Physician Chief Complaint: s/p PPM No complaints - Current Medication List Current Medications: Active Medications Acetaminophen (Tylenol -) 325 mg PO Q6H PRN PRN Reason: PAIN LEVEL 6-10 Allopurinol (Zyloprim -) 300 mg PO DAILY [facility] Last Admin: 07/29/16 09:05 Dose: 300 mg Amlodipine Besylate (Norvasc -) 10 mg PO DAILY [facility] Last Admin: 07/29/16 09:06 Dose: 10 mg Atorvastatin Calcium (Lipitor -) 20 mg PO HS [facility] Last Admin: 07/28/16 22:03 Dose: 20 mg Ezetimibe (Zetia -) 10 mg PO DAILY [facility] Last Admin: 07/29/16 09:06 Dose: 10 mg Heparin Sodium (Porcine) (Heparin -) 5,000 unit SQ BID [facility] Last Admin: 07/29/16 09:06 Dose: 5,000 unit Insulin Aspart (Novolog Vial Sliding Scale -) 1 vial SQ [facility] PRN Reason: Protocol Last Admin: 07/29/16 06:04 Dose: Not Given Insulin Detemir (Levemir Vial) 10 units SQ AM [facility] Last Admin: 07/29/16 06:09 Dose: 10 units Lisinopril (Prinivil) 5 mg PO DAILY [facility] Last Admin: 07/29/16 09:07 Dose: 5 mg Oxycodone HCl (Roxicodone -) 5 mg PO Q6H PRN PRN Reason: PAIN LEVEL 6-10 Pantoprazole Sodium (Protonix -) 40 mg PO DAILY [facility] Last Admin: 07/29/16 09:06 Dose: 40 mg Sitagliptin Phosphate (Januvia -) 100 mg PO ACBK [facility] Last Admin: 07/29/16 06:08 Dose: 100 mg Tramadol HCl (Ultram -) 50 mg PO Q6H PRN PRN Reason: PAIN - Objective Vital Signs: Vital Signs Temperature 97.5 F L 07/29/16 05:20 Pulse Rate 82 07/29/16 05:20 Respiratory Rate 20 07/29/16 05:20 Blood Pressure 151/84 07/29/16 05:20 O2 Sat by Pulse Oximetry (%) 96 07/28/16 22:00 Constitutional: Yes: No Distress Cardiovascular: Yes: Regular Rate and Rhythm Respiratory: Yes: Other (breath sounds b/l) Gastrointestinal: Yes: Soft Edema: No Neurological: Yes: Alert Labs: CBC, BMP 07/25/16 06:00 07/28/16 09:00 INR, PTT INR 0.93 (0.82-1.09) 07/24/16 20:30 - ....Imaging Chest X-ray: Report Reviewed EKG: Image Reviewed Assessment/Plan Assessment/Plan 76 year old woman with a history of HTN, HLD, Parkinsons disease, dementia admitted with dizzienss, weakness, and noted to have episodes of bradycardia while at [place], found to have evidence of high degree heart block on tele. Symptomatic high degree heart block-2:1 heart block -s/p PPM -Stable post procedure with normal function on tele.
[2016-07-29 09:34] VITALS: BP 131/83; PULSE 78
[2016-07-29] MEDS ORDERED: LISINOPRIL 5 MG TABLET (FP) PO SCH (10:00)
[2016-07-29] MEDS ORDERED: EZETIMIBE 10 MG TABLET (FP) PO SCH (10:00)
[2016-07-29] MEDS ORDERED: ALLOPURINOL 300 MG TABLET (FP) PO SCH (10:00)
[2016-07-29] MEDS ORDERED: amLODIPine BESYLATE 10 MG TABLET (FP) PO SCH (10:00)
[2016-07-29] MEDS ORDERED: PANTOPRAZOLE 40 MG TABLET (FP) PO SCH (10:00)
== END 2016-07-29 10:55 | DRG 243 ==
LOC: JER 20:25 → JERBED 21:38 → J4W 07-25 00:57
PROVIDERS: ADMIT Internal Medicine; ATTEND Internal Medicine
PROC: 02H63JZ Insertion of Pacemaker Lead into Right Atrium, Percutaneous Approach (ICD-10-PCS; 2016-07-28)
PROC: 0JH606Z Insertion of Pacemaker, Dual Chamber into Chest Subcutaneous Tissue and Fascia, Open Approach (ICD-10-PCS; principal; 2016-07-28 09:30)
DX: I44.1 Atrioventricular block, second degree (principal); I69.351 Hemiplegia and hemiparesis following cerebral infarction affecting right dominant side; E11.9 Type 2 diabetes mellitus without complications; I10 Essential (primary) hypertension; I49.5 Sick sinus syndrome; R42 Dizziness and giddiness; D35.2 Benign neoplasm of pituitary gland; G20 Parkinson's disease; F02.80 Dementia in other diseases classified elsewhere, unspecified severity, without behavioral disturbance, psychotic disturbance, mood disturbance, and anxiety; E78.5 Hyperlipidemia, unspecified; K21.9 Gastro-esophageal reflux disease without esophagitis; M10.9 Gout, unspecified; R55 Syncope and collapse
CPT/HCPCS: 36415; 71010-TC; 76000-TC; 80048; 80053; 80061; 82024; 82533; 82550; 83036; 83721; 83735; 84100; 84146; 84443; 84484; 85025; 85610; 85730; 86900; 86901; 93005; 93010; 93306-TC; 94760; 97116-GP; 97162-PG; 99285-25; J1644

== ENCOUNTER 2016-10-18 08:17 | Inpatient (IN) | payer OTHER ==
[2016-10-18 08:33] VITALS: BMI 31.6
--- NOTE | 2016-10-18 08:44 | PDOC ---
History of Present Illness <Heladio Lobo - Last Filed: 10/18/16 09:38> - General History Source: EMS, Old Records Exam Limitations: Unresponsive - History of Present Illness Initial Comments: 10/18/16 09:01 The patient is a 76-year-old woman, from [facility], with a significant past medical history of hypertension, hypercholesterolemia, diabetes mellitus, recurrent urinary tract infections, recurrent falls, pituitary ademona who presents to the emergency department via EMS for altered mental status. Vitals upon ER arrival are a rectal temperature of 99.3, HR of 101 bpm, RR to 26, blood pressure of 142/103 and an oxygen saturation of 89 percent on room air. Patient was immediately placed on a non-rebreather. Patient was noted to have a fever (101) and to have wet lungs at the care home and EMS was activated. No other information obtainable. Allergies: Ibuprofen. Morphine. Penicillin Past Surgical History: None reported. 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 No tobacco, EtOH and recreational drug use. Primary Care Physician: Dr. Gilberto Irby <Cynthia Connor - Last Filed: 10/18/16 11:29> - General Chief Complaint: Altered Mental Status Stated Complaint: UNRESPONSIVE Past History - Past Medical History Diabetes: Yes Disorders: Yes (UTI'S) HTN: Yes Hypercholesterolemia: Yes - Immunization History Immunization Up to Date: Yes - Psycho/Social/Smoking Cessation Hx Anxiety: No Suicidal Ideation: No Smoking History: Unknown if ever smoked Have you smoked in the past 12 months: No Information on smoking cessation initiated: No Hx Alcohol Use: No Drug/Substance Use Hx: No Substance Use Type: None <Heladio Lobo - Last Filed: 10/18/16 09:38> <Cynthia Connor - Last Filed: 10/18/16 11:29> - Past Medical History Allergies/Adverse Reactions: Allergies Allergy/AdvReac Type Severity Reaction Status Date / Time ibuprofen Allergy Verified 10/18/16 08:21 morphine Allergy Verified 10/18/16 08:21 Penicillins Allergy Verified 10/18/16 08:21 Home Medications: Ambulatory Orders Acetaminophen [Tylenol] 1,000 mg PO PRN PRN 10/18/16 Allopurinol 300 mg PO DAILY 10/18/16 Carbidopa/Levodopa [Carbidopa-Levodopa 25-100 Tab] 1 each PO TID 10/18/16 Cholecalciferol (Vitamin D3) [Vitamin D3] 1,000 unit PO DAILY 10/18/16 Ezetimibe [Zetia] 10 mg PO DAILY 10/18/16 Guaifenesin Dm [Robitussin Dm] 5 ml GT TID 10/18/16 Insulin Aspart [Novolog] 8 unit SQ TID 10/18/16 Insulin Detemir [Levemir Flextouch] 20 unit SQ HS 10/18/16 Loratadine 10 mg PO DAILY 10/18/16 Metformin HCl [Metformin HCl ER] 1,000 mg PO BID 10/18/16 Omeprazole 20 mg PO DAILY 10/18/16 Sitagliptin Phosphate [Januvia] 100 mg PO DAILY 10/18/16 Tramadol HCl 25 mg PO PRN PRN 10/18/16 Review of Systems - Review of Systems Able to Perform ROS?: No <Cynthia Connor - Last Filed: 10/18/16 11:29> *Physical Exam - Vital Signs Last Vital Signs Temp Pulse Resp BP Pulse Ox 99.3 F 101 H 26 H 142/103 89 L 10/18/16 08:30 10/18/16 08:30 10/18/16 08:30 10/18/16 08:30 10/18/16 08:30 <Heladio Lobo - Last Filed: 10/18/16 09:38> - Vital Signs Last Vital Signs Temp Pulse Resp BP Pulse Ox 99.3 F 101 H 26 H 142/103 89 L 10/18/16 08:30 10/18/16 08:30 10/18/16 08:30 10/18/16 08:30 10/18/16 08:30 - Physical Exam Comments: 10/18/16 09:01 GENERAL: Arousable to painful stimuli. HEAD: No signs of trauma EYES: PERRLA, EOMI, sclera anicteric, conjunctiva clear ENT: Auricles normal inspection, hearing grossly normal, nares patent, oropharynx clear without exudates. Dry mucosa NECK: Normal ROM, supple, no lymphadenopathy, JVD, or masses LUNGS: Rales appreciated to the lower lung nguyen, bilaterally both anteriorly and posteriorly HEART: Regular rate and rhythm, normal S1 and S2, no murmurs, rubs or gallops ABDOMEN: Soft, nontender, normoactive bowel sounds. No guarding, no rebound. No masses EXTREMITIES: Normal range of motion, no edema. No clubbing or cyanosis. No cords, erythema, or tenderness NEUROLOGICAL: Limited. Arousable to painful stimuli. SKIN: Poor skin turgor. <Cynthia Connor - Last Filed: 10/18/16 11:29> Heart Score/ECG Review #1 ECG reviewed & interpreted by me at: 09:00 10/18/16 09:25 Reviewed and interpreted by Dr. Heladio Lobo IMPRESSION: Paced rhythm to 110 bpm. <Cynthia Connor - Last Filed: 10/18/16 11:29> ED Treatment Course - LABORATORY CBC & Chemistry Diagram: 10/18/16 08:32 10/18/16 08:32 - RADIOLOGY Radiology Studies Ordered: Category Date Time Status CHEST X-RAY PORTABLE* [RAD] Stat Radiology 10/18/16 08:30 Ordered <Heladio Lobo - Last Filed: 10/18/16 09:38> - LABORATORY CBC & Chemistry Diagram: 10/18/16 08:32 10/18/16 08:32 - ADDITIONAL ORDERS Additional order review: Laboratory Results 10/18/16 10/18/16 10/18/16 08:45 08:45 08:45 Puncture Site Left radial ABG pH 7.48 H ABG pCO2 at Pt Temp 28.4 L ABG pO2 at Pt Temp 128.0 H ABG HCO3 20.8 L ABG O2 Sat (Measured) 99.4 H ABG O2 Content 19.8 ABG Base Excess -1.2 Apolinar Test Positive VBG pH 7.48 H POC VBG pCO2 30.0 L POC VBG pO2 42.8 Mixed VBG HCO3 21.8 Carboxyhemoglobin 1.7 Methemoglobin 0.5 Oxygen Flow Rate 100% nonrebreathter Vent Rate 0 10/18/16 08:32 RBC 4.92 MCV 89.0 MCHC 33.0 RDW 15.2 MPV 7.8 Neutrophils % 83.4 H D Lymphocytes % 11.4 D Monocytes % 4.3 Eosinophils % 0.2 D Basophils % 0.7 - RADIOLOGY Radiograph Interpretation: 10/18/16 09:23 Chest X-Ray reviewed and interpreted by Dr Heladio Lobo IMPRESSION: Pneumonia at the right middle and right lower lobe. 10/18/16 11:26 CHEST X-RAY PORTABLE Interpreted by Dr. Jona Edgar IMPRESSION: Since the prior study of 07/28/2016, there are new central congestive changes with large heart, unfolded aorta and double lead pacemaker. Again notes is scoliosis with degenerative changes and convexity to the right. HEAD CT Interpreted by Dr. William Lam IMPRESSION: No definite CT evidence of acute intracranial pathology. Development of moderate left maxillary and mild to moderate right maxillary sinus mucosal thickening is seen consistent with sinusitis which may be chronic versus subacute. <Cynthia Connor - Last Filed: 10/18/16 11:29> Medical Decision Making - Critical Care Time Total Critical Care Time (minutes): 40 Critical Care Statement: The care of this patient involved high complexity decision making to prevent further life threatening deterioration of the patient 's condition and/or to evalute & treat vital organ system(s) failure or risk of failure. - Medical Decision Making 10/18/16 08:43 Respiratory paged for blood gas. 10/18/16 08:45. Respiratory arrives to the ED and is at bedside collecting blood gas. 10/18/16 09:45 Portable Chest X-Ray architectural technician arrives. 10/18/16 09:01 The patient is a 76-year-old woman, from [facility], with a significant past medical history of hypertension, hypercholesterolemia, diabetes mellitus, recurrent urinary tract infections, recurrent falls, pituitary ademona who presents to the emergency department via EMS for altered mental status. Vitals upon ER arrival are a rectal temperature of 99.3, HR of 101 bpm, RR to 26, blood pressure of 142/103 and an oxygen saturation of 89 percent on room air. Patient was immediately placed on a non-rebreather. Patient was noted to have a fever (101) and to have wet lungs at the care home and EMS was activated. PHYSICAL EXAMINATION: Patient is arousable to painful stimuli. Rales appreciated to the lower lung nguyen, bilaterally both anteriorly and posteriorly, dry mucosa and poor skin turgor. IMPRESSION: 1. Sepsis 2. Pneumonia. PLAN: Will start sepsis protocol. 10/18/16 09:14 Chest X-Ray, read by me, indicative for Pneumonia in the right middle and lower lobes. CBC indicative for leukocytosis of 14.4 with a left shift. CMP indicative for lactic acidosis, and an elevated troponin. Will page out Dr. Gilberto Irby, who is patient's PMD. 10/18/16 09:25 Called placed to patient's primary care physician, Dr. Gilberto Irby. Immediate connection. Case was discussed. Accepts case. <Cynthia Connor - Last Filed: 10/18/16 11:29> *DC/Admit/Observation/Transfer - Discharge Dispostion Admit: Yes - Attestations Physician Attestion: 10/18/16 08:44 I, Dr. Heladio Lobo, attest that this document has been prepared under my direction and personally reviewed by me in its entirety. I further attest, that it accurately reflects all work, treatment, procedures and medical decision -making performed by me. <Heladio Lobo - Last Filed: 10/18/16 09:38> - Attestations Scribe Attestion: 10/18/16 09:02 Documentation prepared by Cynthia Connor, acting as medical center director for Heladio Lobo DO. <Cynthia Connor - Last Filed: 10/18/16 11:29> Diagnosis at time of Disposition: Metabolic acidosis Aspiration into airway Qualifiers: Encounter type: initial encounter Qualified Code(s): T17.908A - Unspecified foreign body in respiratory tract, part unspecified causing other injury, initial encounter Pneumonia Qualifiers: Pneumonia type: aspiration pneumonia Aspiration pneumonia type: unspecified Laterality: right Lung location: lower lobe of lung Qualified Code(s): J69.0 - Pneumonitis due to inhalation of food and vomit Sepsis Qualifiers: Sepsis type: sepsis due to unspecified organism Qualified Code(s): A41.9 - Sepsis, unspecified organism - Discharge Dispostion Condition at time of disposition: Improved - Referrals
[2016-10-18 08:46] LABS: ARTERIAL BLD GAS O2 SATURATION 99.4 % (90-98.9); ARTERIAL BLOOD GAS BASE EXCESS -1.2 meq/l (-2-2); ARTERIAL BLOOD GAS HCO3 20.8 meq/L (22-26)
[2016-10-18 08:47] LABS: BASOPHIL 0.7 % (0-2.0); EOSINOPHIL 0.2 % (0-4.5); MCH 29.3 pg (25.7-33.7); MEAN PLT VOLUME 7.8 fl (7.5-11.1); NEUTROPHILS 83.4 % (42.8-82.8); PLATELET COUNT 262 K/MM3 (134-434); RDW 15.2 % (11.6-15.6)
[2016-10-18 08:48] LABS: ALLENS TEST POSITIVE; ART PUNCT SITE LEFT RADIAL; ARTERIAL BLOOD GAS pH 7.48 (7.35-7.45); LPM/O2% 100% NONREBREATHTER; PT. ON O2? YES; VENT RATE 0
[2016-10-18 08:49] LABS: METHEMOGLOBIN 0.5 % (0.4-1.5)
[2016-10-18 08:51] LABS: VENOUS BLOOD GAS HCO3 21.8 meq/L (19-25); VENOUS PH 7.48 (7.32-7.42)
[2016-10-18 08:59] LABS: INR 1.04 (0.82-1.09); PROTHROMBIN TIME (PATIENT) 11.4 SEC (9.98-11.88)
[2016-10-18 09:02] LABS: ACTIVATED PTT 32.6 SECONDS (26.9-34.4)
[2016-10-18 09:09] LABS: ALBUMIN 3.3 g/dl (3.4-5.0); ANION GAP 15 (8-16); CALCIUM 9.5 mg/dL (8.5-10.1); CO2 21 mmol/L (21-32); COCKROFT - GAULT 82.6625; CREATININE 0.8 mg/dL (0.55-1.02); GLUCOSE,RANDOM 254 mg/dL (74-106); SGOT/AST 20 U/L (15-37)
[2016-10-18] MEDS ORDERED: VANCOMYCIN 1,000 MG in DEXTROSE 5%-WATER - 250 ML IVPB ONE (09:14)
[2016-10-18 09:23] LABS: ALK PHOS 83 U/L (45-117); BILIRUBIN,TOTAL 0.6 mg/dL (0.2-1.0); SGPT/ALT 19 U/L (12-78); TOT PROT 6.8 g/dl (6.4-8.2)
[2016-10-18 09:29] LABS: TROPONIN I 0.93 ng/ml (0.00-0.05)
[2016-10-18] MEDS ORDERED: LEVOFLOXACIN 750 MG IVPB 150 ML IVPB ONE ×2 (09:30→10:29)
[2016-10-18] MEDS ORDERED: SODIUM CHLORIDE 500 ML IV STA (09:31)
[2016-10-18] MEDS ORDERED: VANCOMYCIN 1 GRAM (PRE-DOCKED) 250 ML IVPB ONE (09:51)
[2016-10-18] MEDS ORDERED: cefTRIAXone 1 GM/50 ML BAG (PRE-DOCKED) IVPB SCH (10:00)
--- NOTE | 2016-10-18 10:41 | EKG ---
Test Reason : Blood Pressure : / mmHG Vent. Rate : 108 BPM Atrial Rate : 108 BPM P-R Int : 164 ms QRS Dur : 156 ms QT Int : 382 ms P-R-T Axes : 038 -77 097 degrees QTc Int : 511 ms Atrial-sensed ventricular-paced rhythm WITH 1ST DEGREE A-V BLOCK ABNORMAL ECG Confirmed by MD VITALY, OANH ([id number]) on 10/18/2016 10:41:05 AM Referred By: Confirmed By:OANH HAIDER MD
[2016-10-18 10:50] LABS: URINE APPEARANCE CLOUDY; URINE BILIRUBIN NEGATIVE (NEGATIVE); URINE COLOR YELLOW; URINE GLUCOSE (UA) 1+ (NEGATIVE); URINE KETONE TRACE (NEGATIVE); URINE NITRITE NEGATIVE (NEGATIVE); URINE UROBILINOGEN NEGATIVE E.U./dl (0.2-1.0)
[2016-10-18 10:56] LABS: URINE BLOOD 1+ (NEGATIVE); URINE LEUK ESTERASE TRACE (NEGATIVE); URINE PROTEIN 3+ (NEGATIVE)
[2016-10-18 11:08] LABS: URINE BACTERIA RARE /hpf (NONE SEEN); URINE RBC 4 /hpf (0-3); URINE WBC 59 /hpf (3-5)
[2016-10-18] MEDS ORDERED: ONDANSETRON 4 MG/2 ML VIAL IVPB ONE (11:39)
[2016-10-18] MEDS ORDERED: ACETAMINOPHEN 1000 MG/100 ML VIAL (NON FORMULARY) IVPB ONE (11:39)
[2016-10-18] MEDS ORDERED: ACETAMINOPHEN INJECTION 100 ML IVPB ONE ×2 (11:47→15:13)
[2016-10-18] MEDS ORDERED: ONDANSETRON 4 MG/2 ML VIAL ONE ×2 (11:47→15:13)
[2016-10-18] MEDS: SODIUM CHLORIDE 1,000 ML IV SCH (12:52)
[2016-10-18] MEDS: LORATADINE 10 MG TABLET PO SCH (18:39)
[2016-10-18] MEDS: PANTOPRAZOLE 20 MG TABLET (FP) PO SCH (18:39)
[2016-10-18] MEDS: INSULIN SLIDING SCALE (NOVOLOG) 1 VIAL SQ SCH ×2 (18:39→22:15)
[2016-10-18] MEDS: EZETIMIBE 10 MG TABLET (FP) PO SCH (18:40)
[2016-10-18] MEDS: CHOLECALCIFEROL (VITAMIN D3) 1,000 UNIT TABLET (FP) PO SCH (18:40)
[2016-10-18] MEDS: ALLOPURINOL 300 MG TABLET (FP) PO SCH (18:40)
--- NOTE | 2016-10-18 19:44 | HP ---
Admitting History and Physical - Admission Chief Complaint: 76 y.o F from [facility] was admitted due [facility] with MS change and high fevers. History of Present Illness: 1.Pt has pituitary macroadenoma. Last MRI of the brain showed 16x9.5x12 mm macroadenoma in the right side of the pituitary gland crossing the midline causing deviation of the pituitary infundibulum to the left. Normal optic chiasm. 2. Subacute non-hemorrhagic lacunar infarct (7.2x4.8) was seen in the posterior aspect of the body of the left caudate nucleus on MRI 07/17/2016. 3. DM type 2. 4. Parkinson disease. 5.Spinal stenosis. Gait disorder. History of falls. 6. HTN. 7.HLD. 8. Gout. 9. GERD. 10.Diverticulosis, 11. 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, Other (Cognitive impairment) Gastrointestinal: Yes: GERD ...: No Endocrine: Yes: Diabetes Mellitus, Other (pituitary macroadenoma) - Advance Directives Advance Directives: Yes: Living Will, DNR - Smoking History Smoking history: Former smoker Have you smoked in the past 12 months: No - Alcohol/Substance Use Hx Alcohol Use: Yes - Social History History of Recent Travel: No Home Medications - Allergies Allergies/Adverse Reactions: Allergies Allergy/AdvReac Type Severity Reaction Status Date / Time ibuprofen Allergy Verified 10/18/16 08:21 morphine Allergy Verified 10/18/16 08:21 Penicillins Allergy Verified 10/18/16 08:21 - Home Medications Home Medications: Ambulatory Orders Acetaminophen [Tylenol] 1,000 mg PO PRN PRN 10/18/16 Allopurinol 300 mg PO DAILY 10/18/16 Carbidopa/Levodopa [Carbidopa-Levodopa 25-100 Tab] 1 each PO TID 10/18/16 Cholecalciferol (Vitamin D3) [Vitamin D3] 1,000 unit PO DAILY 10/18/16 Ezetimibe [Zetia] 10 mg PO DAILY 10/18/16 Guaifenesin Dm [Robitussin Dm] 5 ml GT TID 10/18/16 Insulin Aspart [Novolog] 8 unit SQ TID 10/18/16 Insulin Detemir [Levemir Flextouch] 20 unit SQ HS 10/18/16 Loratadine 10 mg PO DAILY 10/18/16 Metformin HCl [Metformin HCl ER] 1,000 mg PO BID 10/18/16 Omeprazole 20 mg PO DAILY 10/18/16 Sitagliptin Phosphate [Januvia] 100 mg PO DAILY 10/18/16 Tramadol HCl 25 mg PO PRN PRN 10/18/16 Family Disease History - Family Disease History Family History: Unremarkable Review of Systems Unable to obtain ROS, reason: Obtauned, barely arousabl Physical Examination Vital Signs: Vital Signs Temperature 100.3 F H 10/18/16 17:58 Pulse Rate 112 H 10/18/16 17:58 Respiratory Rate 24 10/18/16 17:58 Blood Pressure 124/76 10/18/16 17:58 O2 Sat by Pulse Oximetry (%) 96 10/18/16 18:15 Constitutional: Yes: Calm, Mild Distress, Pallor Eyes: Yes: Conjunctiva Clear. No: Ptosis, Sclera Icterus HENT: Yes: Atraumatic, Normocephalic. No: Nasal Congestion, Pharyngeal Erythema , Rhinnorhea Neck: Yes: Trachea Midline. No: Supple, Lymphadenopathy, Rigid, Thyromegaly Cardiovascular: Yes: Regular Rate and Rhythm, Tachycardia, S1, S2, Other ( Palpable PPM). No: Pulse Irregular, JVD, Gallop Respiratory: Yes: On Nasal O2, Rales (B/L). No: CTA Bilaterally, Bradypnea, Doroteo-Reddy, Intubated Gastrointestinal: Yes: Normal Bowel Sounds, Soft. No: Abdomen, Obese, Ascites, Palpable Mass, Tenderness ...Rectal Exam: Yes: Deferred Renal/: No: Anuria, Bladder Distention, CVA Tenderness - Left, CVA Tenderness - Right Breast(s): Yes: WNL Extremities: No: Amputation, Cold, Cyanosis, Deformity, Internal Rotation, Shortened Edema: No Peripheral Pulses WNL: Yes Neurological: Yes: Unresponsive (Responds to painful stimuli). No: Alert, Oriented Psychiatric: No: Oriented, Agitated Imaging - Results Chest X-ray: Report Reviewed Cat Scan: Report Reviewed (CT head) Problem List - Problems (1) Aspiration into airway Assessment/Plan: Pt with acute episode of fever, rales, , abnormal CXR Will ask swallow eval. wnen improves. IV hydration for now. Code(s): T17.908A - UNSP FB IN RESP TRACT, PART UNSP CAUSING OTH INJURY, INIT Qualifiers: Encounter type: initial encounter Qualified Code(s): T17.908A - Unspecified foreign body in respiratory tract, part unspecified causing other injury, initial encounter (2) Sepsis Assessment/Plan: Blood cx x2-P\ UA cx-P MS change, respiratory distress. Pt is PCN all will cover for anaerobes-Flagyl IV-unavailable as discussed with pharm. Clinda/Aztreonam, -ID consult for approval Levaquin to cover atypical-though doubt Code(s): A41.9 - SEPSIS, UNSPECIFIED ORGANISM Qualifiers: Sepsis type: sepsis due to unspecified organism Qualified Code(s): A41.9 - Sepsis, unspecified organism (3) Diabetes Assessment/Plan: Follow BGM Decrease maintanance Levemir Novolog Code(s): E11.9 - TYPE 2 DIABETES MELLITUS WITHOUT COMPLICATIONS Qualifiers: Diabetes mellitus type: type 2 Diabetes mellitus complication status: without complication
[2016-10-18] MEDS ORDERED: METRONIDAZOLE 500 MG PREMIXED 100 ML IVPB SCH (21:00)
[2016-10-18] MEDS ORDERED: INSULIN DETEMIR 100 UNITS/ML MDV SQ SCH (22:00)
[2016-10-18] MEDS: AZTREONAM 1 GM in DEXTROSE 5%-WATER - 50 ML IVPB SCH (22:15)
[2016-10-18] MEDS: CLINDAMYCIN 600MG PREMIX IVPB 50 ML IVPB SCH (22:16)
[2016-10-19] MEDS: CLINDAMYCIN 600MG PREMIX IVPB 50 ML IVPB SCH ×4 (03:29→21:52)
[2016-10-19] MEDS: AZTREONAM 1 GM in DEXTROSE 5%-WATER - 50 ML IVPB SCH ×3 (03:30→17:33)
[2016-10-19] MEDS: INSULIN SLIDING SCALE (NOVOLOG) 1 VIAL SQ SCH ×4 (06:10→21:52)
[2016-10-19] MEDS: sitaGLIPtin PHOSPHATE 100 MG TABLET (FP) PO SCH (06:11)
[2016-10-19 07:34] LABS: BASOPHIL 1.3 % (0-2.0); EOSINOPHIL 0.8 % (0-4.5); MCH 30.2 pg (25.7-33.7); MCHC 33.1 g/dl (32.0-36.0); MEAN CELL VOLUME 91.4 fl (80-96); MEAN PLT VOLUME 7.9 fl (7.5-11.1); NEUTROPHILS 69.6 % (42.8-82.8); PLATELET COUNT 195 K/MM3 (134-434); RDW 15.4 % (11.6-15.6)
--- NOTE | 2016-10-19 08:01 | PN ---
Progress Note, Physician Chief Complaint: More awake, alert today, answer the questions appropriatele History of Present Illness: 1.Pt has pituitary macroadenoma. Last MRI of the brain showed 16x9.5x12 mm macroadenoma in the right side of the pituitary gland crossing the midline causing deviation of the pituitary infundibulum to the left. Normal optic chiasm. 2. Subacute non-hemorrhagic lacunar infarct (7.2x4.8) was seen in the posterior aspect of the body of the left caudate nucleus on MRI 07/17/2016. 3. DM type 2. 4. Parkinson disease. Dementia. 5.Spinal stenosis. Gait disorder. History of falls. 6. HTN. 7.HLD. 8. Gout. 9. GERD. 10.Diverticulosis, 11. 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 - Current Medication List Current Medications: Active Medications Allopurinol (Zyloprim -) 300 mg PO DAILY [facility] Last Admin: 10/18/16 18:40 Dose: Not Given Cholecalciferol (Vitamin D3 -) 1,000 unit PO DAILY [facility] Last Admin: 10/18/16 18:40 Dose: Not Given Ezetimibe (Zetia -) 10 mg PO DAILY [facility] Last Admin: 10/18/16 18:40 Dose: Not Given Sodium Chloride (Normal Saline -) 1,000 mls @ 100 mls/hr IV ASDIR [facility] Last Admin: 10/18/16 12:52 Dose: 100 mls/hr Levofloxacin (Levaquin 500 Mg Premixed Ivpb -) 100 mls @ 100 mls/hr IVPB DAILY [facility] Aztreonam 1 gm/ Dextrose 50 mls @ 100 mls/hr IVPB Q8H-IV [facility] PRN Reason: Protocol Clindamycin Phosphate (Cleocin 600 Mg Premix Ivpb -) 50 mls @ 100 mls/hr IVPB Q6H-IV [facility] Last Admin: 10/19/16 03:29 Dose: 100 mls/hr Aztreonam 1 gm/ Dextrose 50 mls @ 100 mls/hr IVPB Q8H [facility] PRN Reason: Protocol Stop: 10/19/16 12:29 Last Admin: 10/19/16 03:30 Dose: 100 mls/hr Insulin Aspart (Novolog Vial Sliding Scale -) 1 vial SQ ACHS [facility] PRN Reason: Protocol Last Admin: 10/19/16 06:10 Dose: 4 units Insulin Detemir (Levemir Vial) 10 units SQ HS [facility] Last Admin: 10/18/16 22:16 Dose: Not Given Loratadine (Claritin -) 10 mg PO DAILY [facility] Last Admin: 10/18/16 18:39 Dose: Not Given Pantoprazole Sodium (Protonix -) 20 mg PO DAILY [facility] Last Admin: 10/18/16 18:39 Dose: Not Given Sitagliptin Phosphate (Januvia -) 100 mg PO DAILY@0700 [facility] Last Admin: 10/19/16 06:11 Dose: Not Given - Objective Vital Signs: Vital Signs Temperature 98.6 F 10/19/16 02:05 Pulse Rate 84 10/19/16 05:35 Respiratory Rate 20 10/19/16 05:35 Blood Pressure 109/70 10/19/16 05:35 O2 Sat by Pulse Oximetry (%) 95 10/18/16 21:00 Constitutional: Yes: No Distress, Calm. No: Cachectic, Pallor Eyes: Yes: Conjunctiva Clear, EOM Intact, PERRL. No: Ptosis, Sclera Icterus HENT: Yes: Atraumatic, Normocephalic. No: Drooling, Epistaxis Neck: Yes: Supple, Trachea Midline. No: Decreased ROM, Lymphadenopathy Cardiovascular: Yes: Regular Rate and Rhythm. No: Bradycardia, Tachycardia Respiratory: Yes: Diminished (B/L), Rales, Rhonchi Gastrointestinal: Yes: Normal Bowel Sounds, Soft. No: Abdomen, Obese, Ascites ...Rectal Exam: Yes: Deferred Genitourinary: Yes: Price Present. No: Anuria, Bladder Distention, CVA Tenderness - Left, CVA Tenderness - Right Musculoskeletal: Yes: Muscle Weakness. No: Joint Stiffness, Joint Swelling, Muscle Pain Extremities: No: Amputation, Calf Tenderness, Cold, Cyanosis Edema: No Neurological: Yes: Alert. No: Oriented, Aphasia ...Motor Strength: WNL Psychiatric: Yes: Alert. No: Oriented, Agitated, Suicidal Ideation Labs: INR, PTT INR 1.04 (0.82-1.09) 10/18/16 08:32 Laboratory Results - last 24 hr 10/18/16 10/18/16 10/18/16 08:32 08:32 08:32 WBC 14.0 H D RBC 4.92 Hgb 14.4 Hct 43.8 MCV 89.0 MCHC 33.0 RDW 15.2 Plt Count 262 MPV 7.8 Neutrophils % 83.4 H D Lymphocytes % 11.4 D Monocytes % 4.3 Eosinophils % 0.2 D Basophils % 0.7 INR 1.04 PTT (Actin FS) 32.6 Puncture Site ABG pH ABG pCO2 at Pt Temp ABG pO2 at Pt Temp ABG HCO3 ABG O2 Sat (Measured) ABG O2 Content ABG Base Excess Apolinar Test VBG pH POC VBG pCO2 POC VBG pO2 Mixed VBG HCO3 Carboxyhemoglobin Methemoglobin Oxygen Flow Rate Vent Rate Sodium Potassium Chloride Carbon Dioxide Anion Gap BUN Creatinine Creat Clearance w eGFR POC Glucometer Random Glucose Lactic Acid Calcium Total Bilirubin AST ALT Alkaline Phosphatase Creatine Kinase Troponin I B-Natriuretic Peptide Total Protein Albumin Urine Color Yellow Urine Appearance Cloudy Urine pH 5.0 Ur Specific [place] 1.020 Urine Protein 3+ H Urine Glucose (UA) 1+ H Urine Ketones Trace H Urine Blood 1+ H Urine Nitrite Negative Urine Bilirubin Negative Urine Urobilinogen Negative Ur Leukocyte Esterase Trace H Urine RBC 4 Urine WBC 59 Urine Bacteria Rare Blood Type Antibody Screen 10/18/16 10/18/16 10/18/16 08:32 08:32 08:32 WBC RBC Hgb Hct MCV MCHC RDW Plt Count MPV Neutrophils % Lymphocytes % Monocytes % Eosinophils % Basophils % INR PTT (Actin FS) Puncture Site ABG pH ABG pCO2 at Pt Temp ABG pO2 at Pt Temp ABG HCO3 ABG O2 Sat (Measured) ABG O2 Content ABG Base Excess Apolinar Test VBG pH POC VBG pCO2 POC VBG pO2 Mixed VBG HCO3 Carboxyhemoglobin Methemoglobin Oxygen Flow Rate Vent Rate Sodium 136 Potassium 4.7 Chloride 100 Carbon Dioxide 21 Anion Gap 15 BUN 21 H D Creatinine 0.8 Creat Clearance w eGFR > 60 POC Glucometer Random Glucose 254 H Lactic Acid 3.553 H* Calcium 9.5 Total Bilirubin 0.6 D AST 20 D ALT 19 Alkaline Phosphatase 83 Creatine Kinase 107 Troponin I 0.93 H* B-Natriuretic Peptide 12075.19 H Total Protein 6.8 Albumin 3.3 L Urine Color Urine Appearance Urine pH Ur Specific [place] Urine Protein Urine Glucose (UA) Urine Ketones Urine Blood Urine Nitrite Urine Bilirubin Urine Urobilinogen Ur Leukocyte Esterase Urine RBC Urine WBC Urine Bacteria Blood Type A POSITIVE Antibody Screen Negative 10/18/16 10/18/16 10/18/16 08:45 08:45 08:45 WBC RBC Hgb Hct MCV MCHC RDW Plt Count MPV Neutrophils % Lymphocytes % Monocytes % Eosinophils % Basophils % INR PTT (Actin FS) Puncture Site Left radial ABG pH 7.48 H ABG pCO2 at Pt Temp 28.4 L ABG pO2 at Pt Temp 128.0 H ABG HCO3 20.8 L ABG O2 Sat (Measured) 99.4 H ABG O2 Content 19.8 ABG Base Excess -1.2 Apolinar Test Positive VBG pH 7.48 H POC VBG pCO2 30.0 L POC VBG pO2 42.8 Mixed VBG HCO3 21.8 Carboxyhemoglobin 1.7 Methemoglobin 0.5 Oxygen Flow Rate 100% nonrebreathter Vent Rate 0 Sodium Potassium Chloride Carbon Dioxide Anion Gap BUN Creatinine Creat Clearance w eGFR POC Glucometer Random Glucose Lactic Acid Calcium Total Bilirubin AST ALT Alkaline Phosphatase Creatine Kinase Troponin I B-Natriuretic Peptide Total Protein Albumin Urine Color Urine Appearance Urine pH Ur Specific [place] Urine Protein Urine Glucose (UA) Urine Ketones Urine Blood Urine Nitrite Urine Bilirubin Urine Urobilinogen Ur Leukocyte Esterase Urine RBC Urine WBC Urine Bacteria Blood Type Antibody Screen 10/18/16 10/18/16 10/18/16 10:40 17:19 22:14 WBC RBC Hgb Hct MCV MCHC RDW Plt Count MPV Neutrophils % Lymphocytes % Monocytes % Eosinophils % Basophils % INR PTT (Actin FS) Puncture Site ABG pH ABG pCO2 at Pt Temp ABG pO2 at Pt Temp ABG HCO3 ABG O2 Sat (Measured) ABG O2 Content ABG Base Excess Apolinar Test VBG pH POC VBG pCO2 POC VBG pO2 Mixed VBG HCO3 Carboxyhemoglobin Methemoglobin Oxygen Flow Rate Vent Rate Sodium Potassium Chloride Carbon Dioxide Anion Gap BUN Creatinine Creat Clearance w eGFR POC Glucometer 245 227 Random Glucose Lactic Acid 3.188 H* Calcium Total Bilirubin AST ALT Alkaline Phosphatase Creatine Kinase Troponin I B-Natriuretic Peptide Total Protein Albumin Urine Color Urine Appearance Urine pH Ur Specific [place] Urine Protein Urine Glucose (UA) Urine Ketones Urine Blood Urine Nitrite Urine Bilirubin Urine Urobilinogen Ur Leukocyte Esterase Urine RBC Urine WBC Urine Bacteria Blood Type Antibody Screen 10/19/16 05:18 WBC RBC Hgb Hct MCV MCHC RDW Plt Count MPV Neutrophils % Lymphocytes % Monocytes % Eosinophils % Basophils % INR PTT (Actin FS) Puncture Site ABG pH ABG pCO2 at Pt Temp ABG pO2 at Pt Temp ABG HCO3 ABG O2 Sat (Measured) ABG O2 Content ABG Base Excess Apolinar Test VBG pH POC VBG pCO2 POC VBG pO2 Mixed VBG HCO3 Carboxyhemoglobin Methemoglobin Oxygen Flow Rate Vent Rate Sodium Potassium Chloride Carbon Dioxide Anion Gap BUN Creatinine Creat Clearance w eGFR POC Glucometer 265 Random Glucose Lactic Acid Calcium Total Bilirubin AST ALT Alkaline Phosphatase Creatine Kinase Troponin I B-Natriuretic Peptide Total Protein Albumin Urine Color Urine Appearance Urine pH Ur Specific [place] Urine Protein Urine Glucose (UA) Urine Ketones Urine Blood Urine Nitrite Urine Bilirubin Urine Urobilinogen Ur Leukocyte Esterase Urine RBC Urine WBC Urine Bacteria Blood Type Antibody Screen Problem List - Problems (1) Aspiration into airway Assessment/Plan: Pt with acute episode of fever, rales, , abnormal CXR Repeat CXR Will ask swallow eval. wnen improves. IV hydration for now. Code(s): T17.908A - UNSP FB IN RESP TRACT, PART UNSP CAUSING OTH INJURY, INIT Qualifiers: Encounter type: initial encounter Qualified Code(s): T17.908A - Unspecified foreign body in respiratory tract, part unspecified causing other injury, initial encounter (2) Sepsis Assessment/Plan: Elevated Lactic acid Blood cx x2-P\ UA cx-P MS change, respiratory distress. Pt is PCN all will cover for anaerobes-Flagyl IV-unavailable as discussed with pharm. Clinda/Aztreonam, -ID consult for approval Levaquin to cover atypical-though doubt Code(s): A41.9 - SEPSIS, UNSPECIFIED ORGANISM Qualifiers: Sepsis type: sepsis due to unspecified organism Qualified Code(s): A41.9 - Sepsis, unspecified organism (3) Diabetes Assessment/Plan: Follow BGM Decrease maintanance Levemir- 20 units QD Novolog Code(s): E11.9 - TYPE 2 DIABETES MELLITUS WITHOUT COMPLICATIONS Qualifiers: Diabetes mellitus type: type 2 Diabetes mellitus complication status: without complication
[2016-10-19 08:18] LABS: ALBUMIN 2.4 g/dl (3.4-5.0); BILIRUBIN,TOTAL 0.6 mg/dL (0.2-1.0); CALCIUM 8.5 mg/dL (8.5-10.1); COCKROFT - GAULT 66.13; TOT PROT 5.3 g/dl (6.4-8.2)
[2016-10-19] MEDS: PANTOPRAZOLE 20 MG TABLET (FP) PO SCH (09:02)
[2016-10-19] MEDS: EZETIMIBE 10 MG TABLET (FP) PO SCH (09:02)
[2016-10-19] MEDS: CHOLECALCIFEROL (VITAMIN D3) 1,000 UNIT TABLET (FP) PO SCH (09:02)
[2016-10-19] MEDS: ALLOPURINOL 300 MG TABLET (FP) PO SCH (09:02)
[2016-10-19] MEDS: LORATADINE 10 MG TABLET PO SCH (09:02)
--- NOTE | 2016-10-19 09:03 | PN ---
Progress Note, Physician Chief Complaint: ID Full note dictated Clinical improvement today PCN allergy ? unknown - Current Medication List Current Medications: Active Medications Allopurinol (Zyloprim -) 300 mg PO DAILY [facility] Last Admin: 10/18/16 18:40 Dose: Not Given Cholecalciferol (Vitamin D3 -) 1,000 unit PO DAILY [facility] Last Admin: 10/18/16 18:40 Dose: Not Given Ezetimibe (Zetia -) 10 mg PO DAILY [facility] Last Admin: 10/18/16 18:40 Dose: Not Given Sodium Chloride (Normal Saline -) 1,000 mls @ 100 mls/hr IV ASDIR [facility] Last Admin: 10/18/16 12:52 Dose: 100 mls/hr Levofloxacin (Levaquin 500 Mg Premixed Ivpb -) 100 mls @ 100 mls/hr IVPB DAILY [facility] Aztreonam 1 gm/ Dextrose 50 mls @ 100 mls/hr IVPB Q8H-IV [facility] PRN Reason: Protocol Clindamycin Phosphate (Cleocin 600 Mg Premix Ivpb -) 50 mls @ 100 mls/hr IVPB Q6H-IV [facility] Last Admin: 10/19/16 08:08 Dose: 100 mls/hr Aztreonam 1 gm/ Dextrose 50 mls @ 100 mls/hr IVPB Q8H [facility] PRN Reason: Protocol Stop: 10/19/16 12:29 Last Admin: 10/19/16 03:30 Dose: 100 mls/hr Insulin Aspart (Novolog Vial Sliding Scale -) 1 vial SQ ACHS [facility] PRN Reason: Protocol Last Admin: 10/19/16 06:10 Dose: 4 units Insulin Detemir (Levemir Vial) 20 units SQ HS [facility] Loratadine (Claritin -) 10 mg PO DAILY [facility] Last Admin: 10/18/16 18:39 Dose: Not Given Pantoprazole Sodium (Protonix -) 20 mg PO DAILY [facility] Last Admin: 10/18/16 18:39 Dose: Not Given Sitagliptin Phosphate (Januvia -) 100 mg PO DAILY@0700 [facility] Last Admin: 10/19/16 06:11 Dose: Not Given - Objective Vital Signs: Vital Signs Temperature 98.1 F 10/19/16 08:09 Pulse Rate 64 10/19/16 08:09 Respiratory Rate 20 10/19/16 08:09 Blood Pressure 108/69 10/19/16 08:09 O2 Sat by Pulse Oximetry (%) 95 10/18/16 21:00 Constitutional: Yes: Well Nourished, No Distress Eyes: Yes: WNL, Conjunctiva Clear Neck: Yes: WNL, Supple Cardiovascular: Yes: Regular Rate and Rhythm, S1, S2 Respiratory: Yes: Rales Gastrointestinal: Yes: Soft. No: Tenderness Edema: No Labs: CBC, BMP 10/19/16 05:35 10/19/16 05:35 INR, PTT INR 1.04 (0.82-1.09) 10/18/16 08:32 Problem List - Problems (1) Pneumonia Code(s): J18.9 - PNEUMONIA, UNSPECIFIED ORGANISM Qualifiers: Pneumonia type: aspiration pneumonia Aspiration pneumonia type: unspecified Laterality: right Lung location: lower lobe of lung Qualified Code(s): J69.0 - Pneumonitis due to inhalation of food and vomit (2) UTI (urinary tract infection) Code(s): N39.0 - URINARY TRACT INFECTION, SITE NOT SPECIFIED Assessment/Plan Microbiology 10/18/16 08:32 Blood - Peripheral Venous Blood Culture - Preliminary NO GROWTH OBTAINED AFTER 24 HOURS, INCUBATION TO CONTINUE FOR 4 DAYS. 10/18/16 08:32 Blood - Peripheral Venous Blood Culture - Preliminary NO GROWTH OBTAINED AFTER 24 HOURS, INCUBATION TO CONTINUE FOR 4 DAYS. Laboratory Tests 10/18/16 10/18/16 10/18/16 08:32 08:32 08:32 WBC 14.0 H D Hgb Hct Plt Count INR 1.04 BUN Creatinine Creat Clearance w eGFR Lactic Acid Ur Leukocyte Esterase Trace H Urine WBC 59 10/18/16 10/18/16 10/19/16 08:32 10:40 05:35 WBC 11.0 H Hgb 12.6 D Hct 38.2 Plt Count 195 D INR BUN Creatinine Creat Clearance w eGFR Lactic Acid 3.553 H* 3.188 H* Ur Leukocyte Esterase Urine WBC 10/19/16 05:35 WBC Hgb Hct Plt Count INR BUN 25 H Creatinine 1.0 D Creat Clearance w eGFR 54.05 Lactic Acid Ur Leukocyte Esterase Urine WBC Assessment Alered mental status ? aspiration considered as well as UTI PCN allergy vague no documented Plan Clinda Aztreonam pending c/s Delfin MORALEZ
[2016-10-19] MEDS ORDERED: LEVOFLOXACIN 500 MG IVPB 100 ML IVPB SCH (10:00)
[2016-10-19] MEDS ORDERED: AZTREONAM 1 GM in DEXTROSE 5%-WATER - 50 ML IVPB SCH (10:00)
--- NOTE | 2016-10-19 11:20 | CON.CARD ---
Consult Consult Specialty:: Cardiology Referred by:: Dr. Irby Reason for Consultation:: SOB, Cough, hypoxia - History of Present Illness Chief Complaint: admitted from [place] with sob, tachypnea, hypoxia, fever History of Present Illness: 76 year old woman with a history of HTN, HLD, DMII, CVA, Parkinsons disease, dementia recent admission 07/2016 with high degree heart block, underwent dual chamber PPM implantation now admitted from [place] with sob, cough, AMS, fever, tachypnea, hypoxia. Pt. seen and examined this am in nad. awake, alert, oriented. states that she is coughing up phlegm but overall feeling better. denies sob, chest pain, palpitations. no pnd or orthopnea. she does note intermittent LE edema but none currently. - History Source History Provided By: Patient, Medical Record Limitations to Obtaining History: Poor Historian - Past Medical History ART CLASS MODEL: Yes: CVA, Parkinson's, Other (Cognitive impairment) Cardio/Vascular: Yes: HTN, Hyperlipdemia, Other (high degree heart block s/p PPM 07/2016) Gastrointestinal: Yes: GERD ...: No Endocrine: Yes: Diabetes Mellitus, Other (pituitary macroadenoma) - Past Surgical History Past Surgical History: Yes: Permanent Pacemaker - Alcohol/Substance Use Hx Alcohol Use: Yes - Smoking History Smoking history: Former smoker Have you smoked in the past 12 months: No - Social History Usual Living Arrangement: Alf ADL: Support Services History of Recent Travel: No Home Medications - Allergies Allergies/Adverse Reactions: Allergies Allergy/AdvReac Type Severity Reaction Status Date / Time ibuprofen Allergy Verified 10/18/16 08:21 morphine Allergy Verified 10/18/16 08:21 Penicillins Allergy Verified 10/18/16 08:21 - Home Medications Home Medications: Ambulatory Orders Acetaminophen [Tylenol] 1,000 mg PO PRN PRN 10/18/16 Allopurinol 300 mg PO DAILY 10/18/16 Carbidopa/Levodopa [Carbidopa-Levodopa 25-100 Tab] 1 each PO TID 10/18/16 Cholecalciferol (Vitamin D3) [Vitamin D3] 1,000 unit PO DAILY 10/18/16 Ezetimibe [Zetia] 10 mg PO DAILY 10/18/16 Guaifenesin Dm [Robitussin Dm] 5 ml GT TID 10/18/16 Insulin Aspart [Novolog] 8 unit SQ TID 10/18/16 Insulin Detemir [Levemir Flextouch] 20 unit SQ HS 10/18/16 Loratadine 10 mg PO DAILY 10/18/16 Metformin HCl [Metformin HCl ER] 1,000 mg PO BID 10/18/16 Omeprazole 20 mg PO DAILY 10/18/16 Sitagliptin Phosphate [Januvia] 100 mg PO DAILY 10/18/16 Tramadol HCl 25 mg PO PRN PRN 10/18/16 Family Disease History - Family Disease History Family History: Denies Review of Systems - Review of Systems Constitutional: reports: Fever, Malaise, Weakness. denies: No Symptoms, Chills , Diaphoresis, Lethargy, Loss of Appetite, Night Sweats, Unintentional Wgt. Loss , Other Eyes: denies: No Symptoms, Blind Spots, Blurred Vision, Double Vision, Eye Pain , Floaters, Photophobia, Recent Change in Vision, Other HENT: denies: No Symptoms, Difficult Swallowing, Ear Discharge, Ear Pain, Epistaxis, Gingival Bleeding, Hearing Loss, Mouth Swelling, Nasal Congestion, Ocular Prosthesis, Throat Pain, Toothache, Ringing in Ears, Other Neck: denies: No Symptoms, Decreased ROM, Lumps, Pain on Movement, Stiffness, Swollen Glands, Tenderness, Other Cardiovascular: reports: Edema, Shortness of Breath. denies: No Symptoms, Chest Pain, Palpitations, Other Respiratory: reports: Cough, SOB, SOB on Exertion. denies: No Symptoms, Exercise Intolerance, Hemoptysis, Orthopnea, PND, Snoring, Wheezing, Other Gastrointestinal: denies: No Symptoms, Abdominal Pain, Bloating, Constipation, Diarrhea, Dysphagia, Indigestion, Melena, Nausea, Rectal Bleeding, Vomiting, Vomiting Blood, Other Genitourinary: denies: No Symptoms, Burning, Discharge, Dysuria, Flank Pain, Frequency, Hematuria, Incontinence, Lesions, Menses, Pain, Testicular Mass, Testicular Pain, Testicular Swelling, Urgency, Vaginal Bleeding, Other Breasts: denies: No Symptoms Reported, See HPI, Breast Implants, Discharge from Nipple, Lumps, Pain, Skin Changes, Other Musculoskeletal: denies: No Symptoms, Back Pain, Crepitus, Decreased ROM, Extremity Pain, Joint Pain, Joint Swelling, Muscle Pain, Muscle Cramps, Muscle Weakness, Other Integumentary: denies: No Symptoms, Blister, Bruising, Change in Color, Eczema, Erythema, Incision, Lesions, Lump, Pallor, Pruritis, Rash, Wound, Other Neurological: denies: No Symptoms, Change in LOC, Change in Speech, Confusion, Dizziness, Headache, Incoordination, Numbness, Parasthesia, Pre-Existing Deficit , Seizure, Syncope, Tremors, Unsteady Gait, Weakness, Other Endocrine: denies: No Symptoms, Excessive Sweating, Flushing, Increased Hunger, Increased Thirst, Intolerance to Cold, Intolerance to Heat, Unexplained Weight Gain, Unexplained Weight Loss, Other Hematology/Lymphatic: denies: No Symptoms, Easily Bruised, Excessive Bleeding, Swollen Glands, Other Psychiatric: denies: No Symptoms, Altered Sleep Pattern, Anxiety, Depression, Hallucinations, Panic, Paranoia, Suicidal, Other - Risk Factors Known Risk Factors: Yes: Age, Diabetes Mellitus, Hypercholesterolemia, Hypertension, Physical Inactivity Vital Signs: Vital Signs Temperature 98.1 F 10/19/16 08:09 Pulse Rate 64 10/19/16 08:09 Respiratory Rate 20 10/19/16 08:09 Blood Pressure 108/69 10/19/16 08:09 O2 Sat by Pulse Oximetry (%) 96 10/19/16 08:00 Constitutional: Yes: Well Nourished, No Distress, Calm Eyes: Yes: WNL, Conjunctiva Clear, EOM Intact, PERRL HENT: Yes: WNL, Atraumatic, Normocephalic Neck: Yes: WNL, Supple, Trachea Midline Respiratory: Yes: Regular, Cough, Diminished, On Nasal O2, Rhonchi. No: Rales, SOB, Wheezes Gastrointestinal: Yes: WNL, Normal Bowel Sounds, Soft. No: Distention, Tenderness Renal/: Yes: WNL Cardiovascular: Yes: Regular Rate and Rhythm. No: Bradycardia, Tachycardia, Pulse Irregular, Gallop, Rub, Varicosities JVD: No Carotid Bruit: No PMI: Non-Displaced Heart Sounds: Yes: S1, S2. No: Split S2, S3, S4, Clicks, Gallop, Rub, Bruit Murmur: No: Systolic Murmur, Diastolic Murmur Musculoskeletal: Yes: Muscle Weakness Extremities: Yes: WNL Edema: No Peripheral Pulses WNL: Yes Peripheral Pulses: 2+ Left Doralis Pedis, 2+ Right Dorsalis Pedis Integumentary: Yes: WNL Neurological: Yes: Alert, Oriented Psychiatric: Yes: Alert, Oriented - Other Data Labs, Other Data: CBC, BMP 10/19/16 05:35 10/19/16 05:35 INR, PTT INR 1.04 (0.82-1.09) 10/18/16 08:32 ekg-A sensed Vpaced 86bpm Echo: Report Reviewed Prior Cardiac Procedures: Other ([facility] 07/2016) Imaging - Results Chest X-ray: Report Reviewed, Image Reviewed EKG: Report Reviewed, Image Reviewed Other: Report Reviewed, Image Reviewed (tele-A sensed V paced, APCs) Problem List - Problems (1) Aspiration into airway Code(s): T17.908A - UNSP FB IN RESP TRACT, PART UNSP CAUSING OTH INJURY, INIT Qualifiers: Encounter type: initial encounter Qualified Code(s): T17.908A - Unspecified foreign body in respiratory tract, part unspecified causing other injury, initial encounter (2) Pneumonia Code(s): J18.9 - PNEUMONIA, UNSPECIFIED ORGANISM Qualifiers: Pneumonia type: aspiration pneumonia Aspiration pneumonia type: unspecified Laterality: right Lung location: lower lobe of lung Qualified Code(s): J69.0 - Pneumonitis due to inhalation of food and vomit (3) Sepsis Code(s): A41.9 - SEPSIS, UNSPECIFIED ORGANISM Qualifiers: Sepsis type: sepsis due to unspecified organism Qualified Code(s): A41.9 - Sepsis, unspecified organism (4) CVA (cerebral vascular accident) Code(s): I63.9 - CEREBRAL INFARCTION, UNSPECIFIED Qualifiers: Precerebral and cerebral artery: unspecified precerebral artery (5) Diabetes Code(s): E11.9 - TYPE 2 DIABETES MELLITUS WITHOUT COMPLICATIONS Qualifiers: Diabetes mellitus type: type 2 Diabetes mellitus complication status: without complication (6) EKG abnormalities Code(s): R94.31 - ABNORMAL ELECTROCARDIOGRAM [ECG] [EKG] (7) HTN (hypertension) Code(s): I10 - ESSENTIAL (PRIMARY) HYPERTENSION Qualifiers: Hypertension type: essential hypertension Qualified Code(s): I10 - Essential (primary) hypertension (8) Pituitary adenoma Code(s): D35.2 - BENIGN NEOPLASM OF PITUITARY GLAND (9) HLD (hyperlipidemia) Code(s): E78.5 - HYPERLIPIDEMIA, UNSPECIFIED (10) Cough Code(s): R05 - COUGH Assessment/Plan 76 year old woman with a history of HTN, HLD, DMII, CVA, Parkinsons disease, dementia recent admission 07/2016 with high degree heart block, underwent dual chamber PPM implantation now admitted [place] with sob, cough, AMS, fever, tachypnea, hypoxia. SOB/Cough/fever/hypoxia-PNA vs UTI, possible aspiration -receiving Abx -echo from 07/2016 showed normal LV and RV size and systolic function, evidence of impaired LV relaxation, no sig valvular abnormalities -hold off on diuresis for now, despite elevated BNP and Cxr findings she appears overall euvolemic on exam and has evidence of intravascular depletion on labs -currently receiving IVF, monitor for clinical signs of volume overload and plan to use diuretics as needed Arrhythmia-h/o high degree heart block s/p PPM 07/2016 -A sensed V paced on ekg and tele, PPM appears to be functioning appropriately HTN-well controlled -monitor off medication for now
--- NOTE | 2016-10-19 11:55 | CONSULT ---
Admitting History and Physical - Primary Care Physician PCP: Gilberto Irby - Admission History of Present Illness: Per EMR: "Chief Complaint: 76 y.o F from [facility] was admitted due [facility] with MS change and high fevers. History of Present Illness: 1.Pt has pituitary macroadenoma. Last MRI of the brain showed 16x9.5x12 mm macroadenoma in the right side of the pituitary gland crossing the midline causing deviation of the pituitary infundibulum to the left. Normal optic chiasm. 2. Subacute non-hemorrhagic lacunar infarct (7.2x4.8) was seen in the posterior aspect of the body of the left caudate nucleus on MRI 07/17/2016. 3. DM type 2. 4. Parkinson disease. 5.Spinal stenosis. Gait disorder. History of falls. 6. HTN. 7.HLD. 8. Gout. 9. GERD. 10.Diverticulosis, 11. 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 Selected Entries 10/18/16 10/18/16 10/18/16 08:30 17:00 17:58 Temperature 99.3 F 100.3 F H 100.3 F H 10/18/16 10/19/16 10/19/16 22:00 02:05 08:09 Temperature 100 F H 98.6 F 98.1 F Laboratory Tests 10/18/16 10/19/16 08:32 05:35 WBC 14.0 H D 11.0 H Pt was on reg diet/thin liquids at [facility], with snacks. h/o DM. 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, Parkinson's, Other (Cognitive impairment) Cardiovascular: Yes: HTN, Hyperlipdemia, Other (high degree heart block s/p PPM 07/2016) Gastrointestinal: Yes: GERD ...: No Endocrine: Yes: Diabetes Mellitus, Other (pituitary macroadenoma) - Past Surgical History Past Surgical History: Yes: Permanent Pacemaker - Advance Directives Advance Directives: Yes: Living Will, DNR - Smoking History Smoking history: Former smoker Have you smoked in the past 12 months: No - Alcohol/Substance Use Hx Alcohol Use: Yes - Social History ADL: Support Services History of Recent Travel: No History - Admission Reason For Visit: SEPSIS, PNEUMONIA, MTEABOLIS ACIDOSIS - Diagnostics X-ray: Report Reviewed CT Scan: Report Reviewed - General Mental Status: Awake and Alert, Able to Follow Commands, Forgetful, Vague, Confused, Flat Affect Attention: Distractible Ability to Follow Directions: Fair Head/Neck Control: Fair - Hearing Hearing: Impaired Hearing Aide: No With Patient: No Speech Evaluation - Communication Primary Language: DIVEHI Communication: Yes: Simple Responses - Speech Production Able to Make Needs Known: Yes: WNL Intelligibility: Yes: WNL - Speech Characteristics Voice Loudness: Normal Voice Pitch: Yes: Normal Voice Phonatory-based Quality: Yes: Normal Speech Pattern: Normal Speech Clarity: < 100% Nasal Resonance: Normal Articulation: Yes: Precise Rate of Speech: Intact - Language/Auditory Comprehension Follows: Yes: 1 Stage Simple Commands - Swallow Evaluation/Bedside Assessment Current Nutritional Intake: NPO Oral Secretions: Yes: WFL (Has cough/congestion. CXR "central congestion") Dentition: Yes: Adequate Facial Symmetry at Rest: Symmetrical Facial Symmetry on Retraction: Symmetrical Pucker Lips: Normal Smile: Weak (limited.) Lingual Movement: Symmetric Lingual Speed of Movement: Normal Lingual Movement Strgth Against Opposition: Normal Lingual Movement Characteristics: Normal Bolus Size: WFL Labial Seal: WFL Chewing: WFL Oral Prep Time: WFL A-P Transit: WFL Pocketing: None Timing of Swallow: Delayed Coughing/Throat Clear: No Change in Voice: No Recommendations - Speech Evaluation, Impression/Plan Impression: Flat affect, disoriented, slow to respond, vague. Symmetric oral peripheral exam. Mastication intact. Delayed but brisk swallow. Cough/ congestion not clearly related to PO intake. - Disposition Discharge to: Ret[facility] Facility - Dysphagia Impressions/Plan Dysphagia Impressions: Risk of Aspiration (due to delayed swallow onset), Ongoing Evaluation *Silent aspiration: cannot be R/O at bedside Dysphagia Treatment Plan: Small Bites, Chin Tuck/Down, Trial Feedings, Safe Rate , 1/2 tsp. at a time, Elevate HOB during feed, Other (please feed pt, slowly, small bites, monitor tolerance) Recommendations: Modified Barium Swallow (if cough/congestion persists) - Recommendations Diet Consistency: Regular (soft, cohesive foods) Medication Administration: Crushed with applesauce Liquids: Thin Liquids (observe tolerance) Supplement: Other (as indicated b/n meals)
--- NOTE | 2016-10-19 12:03 | CONS ---
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 She has a history of a pituitary macroadenoma, which has been followed by MRI and apparently noted to cross the midline, causing deviation of the pituitary infundibulum to the left with a normal optic chiasm. In July of 2016, she apparently was diagnosed with a subacute nonhemorrhagic lacunar infarct, 7 x 5 cm, in the posterior aspect of the left caudate nucleus. She is diabetic, has Parkinson disease, spinal stenosis and a permanent pacemaker. Because of fever and a QUESTIONABLE PENICILLIN ALLERGY, she was empirically treated for possible aspiration pneumonia with clindamycin, aztreonam and levofloxacin. I am asked to see her for further evaluation. Today, she is apparently much more alert and able to answer questions appropriately. She denies any shortness of breath, admits to some cough, but I question her reliability. She denies abdominal pain or urinary complaints. PAST MEDICAL HISTORY: As noted above. MEDICATIONS PRIOR TO ADMISSION: Allopurinol, Sinemet, Zetia, insulin, metformin, Januvia, tramadol, omeprazole. ALLERGIES: PENICILLIN, MORPHINE, IBUPROFEN. SOCIAL HISTORY: Former smoker until 2 years ago. Admits to drinking alcohol. Denies any travel. Born and raised in the [facility]. No pets. FAMILY HISTORY: The family history reviewed and noncontributory. REVIEW OF SYSTEMS: Neurologic: Initially obtunded, barely arouseable. Pulmonary: No shortness of breath, cough, hemoptysis. Cardiac: No chest pain, palpitations, syncope. Gastrointestinal: No abdominal pain, nausea, vomiting, diarrhea. Genitourinary: No dysuria, hematuria, urinary frequency. PHYSICAL EXAMINATION: General: She was an alert, pleasant woman in no acute distress. Vital signs: T-max was 100.3, currently 98.1. Pulse 64, blood pressure 108/69, respirations 20. O2 saturation 95%, 2 liters nasal cannula. Neck: Supple without adenopathy. Lungs: With bibasilar crackles. Heart: S1, S2, regular rhythm without audible murmur or gallop. Abdomen: Soft, nontender, positive bowel sounds, no distended, no guarding/rebound or organomegaly. Extremities: No clubbing, cyanosis or edema. LABS: The white count is 14,000, hemoglobin 14.4, platelets of 262. INR 1.04. ABG dated 10/18. pO2 of 128 on 100% [id number]. BUN 25, creatinine 1, creatinine clearance 54, liver enzymes within normal limit, lactic acid 3.5 and urinalysis with 4 RBCs, 60 WBCs and rare bacteria. Blood cultures thus far, no growth. Urine culture pending. ASSESSMENT: 1. 76-year-old female with a history of Parkinson disease and a large pituitary adenoma, presents with respiratory distress and hypoxemia, initially requiring a [id number] mask. The differential diagnosis would include possible aspiration pneumonia. 2. Her chest x-ray was reviewed and does show some congestive changes, but no discrete infiltrate. 3. She appears as well to have a urinary tract infection, and a urine culture is pending. 4. Lastly, the diagnosis of sepsis is considered to explain her hypoxemia. PLAN: She has a VAGUE PENICILLIN ALLERGY, and at this point, therapy with clindamycin and aztreonam should be sufficient. I am concerned about the possibility of developing C. difficile. Clindamycin combined with fluoroquinolone, await urine culture. Clinically, she is definitely much better than when she first presented to the hospital. The case was discussed with Dr. Irby, and hopefully, patient can be discharged in 48-72 hours, perhaps on an oral quinolone, but depending on the final culture reports. RADHA EMERY M.D. BETTY/[id number] cc: Gilberto Irby MD
[2016-10-19] MEDS: SODIUM CHLORIDE 1,000 ML IV SCH (12:30)
--- NOTE | 2016-10-19 14:01 | EKG ---
Test Reason : Blood Pressure : / mmHG Vent. Rate : 086 BPM Atrial Rate : 086 BPM P-R Int : 186 ms QRS Dur : 174 ms QT Int : 458 ms P-R-T Axes : 042 -82 094 degrees QTc Int : 548 ms Atrial-sensed ventricular-paced rhythm ABNORMAL ECG WHEN COMPARED WITH ECG OF 18-OCT-2016 09:02, VENT. RATE HAS DECREASED BY 22 BPM Confirmed by SIVA SALMERON MD ([id number]) on 10/19/2016 2:00:52 PM Referred By: MEENAKSHI BROOKS Confirmed By:SIVA SALMERON MD
[2016-10-19] MEDS ORDERED: INSULIN (NOVOLOG) ASPART 100 UNITS/ML 10ML VIAL ONE (21:41)
[2016-10-19] MEDS ORDERED: INSULIN DETEMIR 100 UNITS/ML MDV SQ SCH (22:00)
[2016-10-20] MEDS: AZTREONAM 1 GM in DEXTROSE 5%-WATER - 50 ML IVPB SCH ×3 (02:23→18:14)
[2016-10-20] MEDS ORDERED: PT OWN MED DRAWER 7, Y5N ONE (02:23)
[2016-10-20] MEDS: CLINDAMYCIN 600MG PREMIX IVPB 50 ML IVPB SCH ×3 (03:03→17:25)
[2016-10-20] MEDS: sitaGLIPtin PHOSPHATE 100 MG TABLET (FP) PO SCH (06:33)
[2016-10-20] MEDS: INSULIN SLIDING SCALE (NOVOLOG) 1 VIAL SQ SCH ×5 (06:33→21:30)
[2016-10-20 07:38] LABS: BASOPHIL 0.9 % (0-2.0); MCHC 32.8 g/dl (32.0-36.0); MEAN CELL VOLUME 91.3 fl (80-96); MEAN PLT VOLUME 7.9 fl (7.5-11.1); NEUTROPHILS 67.4 % (42.8-82.8); PLATELET COUNT 198 K/MM3 (134-434); RDW 15.8 % (11.6-15.6); WHITE BLOOD COUNT 10.2 K/mm3 (4.0-10.0)
[2016-10-20 08:32] LABS: ALBUMIN 2.6 g/dl (3.4-5.0); ALK PHOS 63 U/L (45-117); ANION GAP 14 (8-16); BILIRUBIN,TOTAL 0.5 mg/dL (0.2-1.0); CALCIUM 9.2 mg/dL (8.5-10.1); CO2 23 mmol/L (21-32); COCKROFT - GAULT 82.6625; CREATININE 0.8 mg/dL (0.55-1.02); GLUCOSE,RANDOM 254 mg/dL (74-106); SGOT/AST 19 U/L (15-37); SGPT/ALT 18 U/L (12-78); TOT PROT 5.8 g/dl (6.4-8.2)
--- NOTE | 2016-10-20 08:58 | PN ---
Progress Note, Physician History of Present Illness: seen and examined this am in nad. feeling better today. still has cough. no overnight events. no new complaints. - Current Medication List Current Medications: Active Medications Allopurinol (Zyloprim -) 300 mg PO DAILY [facility] Last Admin: 10/19/16 09:02 Dose: Not Given Cholecalciferol (Vitamin D3 -) 1,000 unit PO DAILY [facility] Last Admin: 10/19/16 09:02 Dose: Not Given Ezetimibe (Zetia -) 10 mg PO DAILY [facility] Last Admin: 10/19/16 09:02 Dose: Not Given Sodium Chloride (Normal Saline -) 1,000 mls @ 100 mls/hr IV ASDIR [facility] Last Admin: 10/19/16 12:30 Dose: 100 mls/hr Clindamycin Phosphate (Cleocin 600 Mg Premix Ivpb -) 50 mls @ 100 mls/hr IVPB Q6H-IV [facility] Last Admin: 10/20/16 08:53 Dose: 100 mls/hr Aztreonam 1 gm/ Dextrose 50 mls @ 100 mls/hr IVPB Q8H-IV BRITTANY PRN Reason: Protocol Last Admin: 10/20/16 02:23 Dose: 100 mls/hr Insulin Aspart (Novolog Vial Sliding Scale -) 1 vial SQ ACHS [facility] PRN Reason: Protocol Last Admin: 10/20/16 06:33 Dose: 2 units Insulin Detemir (Levemir Vial) 20 units SQ HS [facility] Last Admin: 10/19/16 21:52 Dose: Not Given Loratadine (Claritin -) 10 mg PO DAILY [facility] Last Admin: 10/19/16 09:02 Dose: Not Given Pantoprazole Sodium (Protonix -) 20 mg PO DAILY [facility] Last Admin: 10/19/16 09:02 Dose: Not Given Sitagliptin Phosphate (Januvia -) 100 mg PO DAILY@0700 [facility] Last Admin: 10/20/16 06:33 Dose: 100 mg - Objective Vital Signs: Vital Signs Temperature 98.7 F 10/20/16 07:45 Pulse Rate 91 H 10/20/16 07:45 Respiratory Rate 20 10/20/16 07:45 Blood Pressure 130/71 10/20/16 07:45 O2 Sat by Pulse Oximetry (%) 96 10/19/16 21:00 Constitutional: Yes: Well Nourished, No Distress, Calm Eyes: Yes: WNL, Conjunctiva Clear, EOM Intact, PERRL HENT: Yes: WNL, Atraumatic, Normocephalic Neck: Yes: WNL, Supple, Trachea Midline Cardiovascular: Yes: Regular Rate and Rhythm, S1, S2. No: Bradycardia, Tachycardia, Pulse Irregular, Bruit, JVD, Gallop, Murmur, Rub, S3, S4, Varicosities Respiratory: Yes: Regular, Rhonchi. No: Rales, Wheezes Gastrointestinal: Yes: WNL, Normal Bowel Sounds, Soft. No: Distention, Tenderness Musculoskeletal: Yes: Muscle Weakness Extremities: Yes: WNL Edema: No Peripheral Pulses WNL: Yes Peripheral Pulses: Left Doralis Pedis: 2+, Right Dorsalis Pedis: 2+ Integumentary: Yes: WNL Neurological: Yes: Alert, Oriented Psychiatric: Yes: Alert, Oriented Labs: CBC, BMP 10/20/16 05:40 10/20/16 05:40 INR, PTT INR 1.04 (0.82-1.09) 10/18/16 08:32 - ....Imaging Chest X-ray: Report Reviewed, Image Reviewed EKG: Report Reviewed, Image Reviewed Other: Report Reviewed, Image Reviewed (tele-nsr, vpaced) Problem List - Problems (1) Aspiration into airway Code(s): T17.908A - UNSP FB IN RESP TRACT, PART UNSP CAUSING OTH INJURY, INIT Qualifiers: Encounter type: initial encounter Qualified Code(s): T17.908A - Unspecified foreign body in respiratory tract, part unspecified causing other injury, initial encounter (2) Pneumonia Code(s): J18.9 - PNEUMONIA, UNSPECIFIED ORGANISM Qualifiers: Pneumonia type: aspiration pneumonia Aspiration pneumonia type: unspecified Laterality: right Lung location: lower lobe of lung Qualified Code(s): J69.0 - Pneumonitis due to inhalation of food and vomit (3) Sepsis Code(s): A41.9 - SEPSIS, UNSPECIFIED ORGANISM Qualifiers: Sepsis type: sepsis due to unspecified organism Qualified Code(s): A41.9 - Sepsis, unspecified organism (4) CVA (cerebral vascular accident) Code(s): I63.9 - CEREBRAL INFARCTION, UNSPECIFIED Qualifiers: Precerebral and cerebral artery: unspecified precerebral artery (5) Diabetes Code(s): E11.9 - TYPE 2 DIABETES MELLITUS WITHOUT COMPLICATIONS Qualifiers: Diabetes mellitus type: type 2 Diabetes mellitus complication status: without complication (6) EKG abnormalities Code(s): R94.31 - ABNORMAL ELECTROCARDIOGRAM [ECG] [EKG] (7) HTN (hypertension) Code(s): I10 - ESSENTIAL (PRIMARY) HYPERTENSION Qualifiers: Hypertension type: essential hypertension Qualified Code(s): I10 - Essential (primary) hypertension (8) Pituitary adenoma Code(s): D35.2 - BENIGN NEOPLASM OF PITUITARY GLAND (9) HLD (hyperlipidemia) Code(s): E78.5 - HYPERLIPIDEMIA, UNSPECIFIED (10) Cough Code(s): R05 - COUGH Assessment/Plan 76 year old woman with a history of HTN, HLD, DMII, CVA, Parkinsons disease, dementia recent admission 07/2016 with high degree heart block, underwent dual chamber PPM implantation now admitted from OR with sob, cough, AMS, fever, tachypnea, hypoxia. SOB/Cough/fever/hypoxia-PNA vs UTI, possible aspiration -improving -receiving Abx -echo from 07/2016 showed normal LV and RV size and systolic function, evidence of impaired LV relaxation, no sig valvular abnormalities -does not require diuresis at this time, can use lasix prn -ok to dc tele Arrhythmia-h/o high degree heart block s/p PPM 07/2016 -A sensed V paced on ekg and tele, PPM appears to be functioning appropriately -ok to dc tele HTN-well controlled -monitor off medication for now
[2016-10-20] MEDS: PANTOPRAZOLE 20 MG TABLET (FP) PO SCH (09:04)
[2016-10-20] MEDS: EZETIMIBE 10 MG TABLET (FP) PO SCH (09:04)
[2016-10-20] MEDS: ALLOPURINOL 300 MG TABLET (FP) PO SCH (09:04)
[2016-10-20] MEDS: CHOLECALCIFEROL (VITAMIN D3) 1,000 UNIT TABLET (FP) PO SCH (09:04)
[2016-10-20] MEDS: LORATADINE 10 MG TABLET PO SCH (09:04)
--- NOTE | 2016-10-20 10:40 | PN ---
Progress Note, Physician Chief Complaint: More awake today, confused but MS appears at baseline. Afebrile. Seen by cardiology and speach and swallow eval. Recommended soft diet. History of Present Illness: 1.Pt has pituitary macroadenoma. Last MRI of the brain showed 16x9.5x12 mm macroadenoma in the right side of the pituitary gland crossing the midline causing deviation of the pituitary infundibulum to the left. Normal optic chiasm. 2. Subacute non-hemorrhagic lacunar infarct (7.2x4.8) was seen in the posterior aspect of the body of the left caudate nucleus on MRI 07/17/2016. 3. DM type 2. 4. Parkinson disease. Dementia. 5.Spinal stenosis. DDD LS spne. Gait disorder. History of falls. 6. HTN. 7.HLD. 8. Gout. 9. GERD. 10.Diverticulosis, 11. Pacemaker placement 07/[address] [facility] for AVB 12. Left Hip ORIF after fracture - Current Medication List Current Medications: Active Medications Allopurinol (Zyloprim -) 300 mg PO DAILY [facility] Last Admin: 10/20/16 09:04 Dose: 300 mg Cholecalciferol (Vitamin D3 -) 1,000 unit PO DAILY [facility] Last Admin: 10/20/16 09:04 Dose: 1,000 unit Ezetimibe (Zetia -) 10 mg PO DAILY [facility] Last Admin: 10/20/16 09:04 Dose: 10 mg Sodium Chloride (Normal Saline -) 1,000 mls @ 100 mls/hr IV ASDIR [facility] Last Admin: 10/19/16 12:30 Dose: 100 mls/hr Clindamycin Phosphate (Cleocin 600 Mg Premix Ivpb -) 50 mls @ 100 mls/hr IVPB Q6H-IV [facility] Last Admin: 10/20/16 08:53 Dose: 100 mls/hr Aztreonam 1 gm/ Dextrose 50 mls @ 100 mls/hr IVPB Q8H-IV BRITTANY PRN Reason: Protocol Last Admin: 10/20/16 09:03 Dose: 100 mls/hr Insulin Aspart (Novolog Vial Sliding Scale -) 1 vial SQ ACHS [facility] PRN Reason: Protocol Last Admin: 10/20/16 06:33 Dose: 2 units Insulin Detemir (Levemir Vial) 20 units SQ HS [facility] Last Admin: 10/19/16 21:52 Dose: Not Given Loratadine (Claritin -) 10 mg PO DAILY [facility] Last Admin: 10/20/16 09:04 Dose: 10 mg Pantoprazole Sodium (Protonix -) 20 mg PO DAILY [facility] Last Admin: 10/20/16 09:04 Dose: 20 mg Sitagliptin Phosphate (Januvia -) 100 mg PO DAILY@0700 [facility] Last Admin: 10/20/16 06:33 Dose: 100 mg - Objective Vital Signs: Vital Signs Temperature 98.7 F 10/20/16 07:45 Pulse Rate 91 H 10/20/16 07:45 Respiratory Rate 20 10/20/16 07:45 Blood Pressure 130/71 10/20/16 07:45 O2 Sat by Pulse Oximetry (%) 96 10/19/16 21:00 Constitutional: Yes: Calm, Mild Distress Eyes: Yes: Conjunctiva Clear, EOM Intact HENT: Yes: Atraumatic, Normocephalic Neck: Yes: Supple, Trachea Midline. No: Lymphadenopathy Cardiovascular: Yes: Regular Rate and Rhythm. No: Bradycardia, Tachycardia Respiratory: Yes: Regular, CTA Bilaterally Gastrointestinal: Yes: Normal Bowel Sounds, Soft ...Rectal Exam: Yes: Deferred Genitourinary: Yes: Price Present. No: Anuria Musculoskeletal: Yes: WNL Extremities: No: Amputation, Calf Tenderness, Cold, Cyanosis Edema: No Integumentary: Yes: WNL Neurological: Yes: Alert, Confusion. No: Oriented, Aphasia, Asterixis, Dysarthria, Facial Droop, Lethargy, Seizure, Unresponsive ...Motor Strength: WNL Psychiatric: Yes: Alert. No: Oriented, Agitated, Suicidal Ideation Labs: CBC, BMP 10/20/16 05:40 10/20/16 05:40 INR, PTT INR 1.04 (0.82-1.09) 10/18/16 08:32 Problem List - Problems (1) Aspiration into airway Assessment/Plan: CXR repeated-noterd increased markings and retrocardiac infiltrate vs atelectasis. Will continue IV ABX Code(s): T17.908A - UNSP FB IN RESP TRACT, PART UNSP CAUSING OTH INJURY, INIT Qualifiers: Encounter type: initial encounter Qualified Code(s): T17.908A - Unspecified foreign body in respiratory tract, part unspecified causing other injury, initial encounter (2) Sepsis Assessment/Plan: EBld cx-neg UA-GNB Continue IV fluids and ABX Code(s): A41.9 - SEPSIS, UNSPECIFIED ORGANISM Qualifiers: Sepsis type: sepsis due to unspecified organism Qualified Code(s): A41.9 - Sepsis, unspecified organism (3) Diabetes Assessment/Plan: Follow BGM Decrease maintanance Levemir- 20 units QD Novolog Code(s): E11.9 - TYPE 2 DIABETES MELLITUS WITHOUT COMPLICATIONS Qualifiers: Diabetes mellitus type: type 2 Diabetes mellitus complication status: without complication (4) UTI (urinary tract infection) Assessment/Plan: LFGNB >100,000 ID-P Continue current abx for the next 24 hrs Code(s): N39.0 - URINARY TRACT INFECTION, SITE NOT SPECIFIED Qualifiers: Urinary tract infection type: site unspecified Hematuria presence: without hematuria Qualified Code(s): N39.0 - Urinary tract infection, site not specified (5) Toxic metabolic encephalopathy Assessment/Plan: Change in MS due to sepsis, infection. It improved with hydration and IV antibiotics Code(s): G92 - TOXIC ENCEPHALOPATHY
[2016-10-20] MEDS ORDERED: INSULIN DETEMIR 100 UNITS/ML MDV SQ SCH (10:42)
[2016-10-20] MEDS: SODIUM CHLORIDE 1,000 ML IV SCH ×2 (11:34→17:27)
--- NOTE | 2016-10-20 14:33 | PN ---
Progress Note (short form) - Note Progress Note: quite alert Vital Signs Period Temp Pulse Resp BP Sys/Doyle Pulse Ox Last 24 Hr 97.4 F-98.8 F 91-102 20-20 105-130/71-78 96-97 cor-rrr lungs decreased bs at bases abd soft,nt ext no edema CBC, BMP 10/20/16 05:40 10/20/16 05:40 Microbiology 10/18/16 08:32 Urine - Urine Clean Catch Urine Culture - Final Escherichia Coli 10/19/16 20:20 Urine For Antigen Detection Legionella Antigen - Final 10/19/16 20:20 Urine For Antigen Detection Streptococcus pneumoniae Antigen (M - Final 10/18/16 08:32 Blood - Peripheral Venous Blood Culture - Preliminary NO GROWTH OBTAINED AFTER 48 HOURS, INCUBATION TO CONTINUE FOR 3 DAYS. 10/18/16 08:32 Blood - Peripheral Venous Blood Culture - Preliminary NO GROWTH OBTAINED AFTER 48 HOURS, INCUBATION TO CONTINUE FOR 3 DAYS. 10/18/16 08:32 Serum Mycoplasma Antibody - Preliminary a/p pneumonia ?pen allergy possible aspiration ecoli uti continue clindamycin and levaqun add probiotics
[2016-10-20] MEDS: LACTOBACILLUS ACIDOPHILUS 1 EACH TAB (FP) PO SCH (14:46)
[2016-10-20] MEDS ORDERED: INSULIN (NOVOLOG) ASPART 100 UNITS/ML 10ML VIAL ONE (21:26)
[2016-10-21] MEDS ORDERED: PT OWN MED DRAWER 7, Y5N ONE ×2 (01:30→10:06)
[2016-10-21] MEDS: CLINDAMYCIN 600MG PREMIX IVPB 50 ML IVPB SCH ×2 (01:35→10:34)
[2016-10-21] MEDS: AZTREONAM 1 GM in DEXTROSE 5%-WATER - 50 ML IVPB SCH (02:18)
[2016-10-21] MEDS: SODIUM CHLORIDE 1,000 ML IV SCH (05:10)
[2016-10-21] MEDS: INSULIN SLIDING SCALE (NOVOLOG) 1 VIAL SQ SCH ×2 (06:06→11:42)
[2016-10-21] MEDS: sitaGLIPtin PHOSPHATE 100 MG TABLET (FP) PO SCH (06:07)
[2016-10-21 06:56] LABS: BASOPHIL 0.6 % (0-2.0); EOSINOPHIL 2.1 % (0-4.5); MCH 30.5 pg (25.7-33.7); MCHC 33.5 g/dl (32.0-36.0); MEAN CELL VOLUME 91.2 fl (80-96); MEAN PLT VOLUME 8.3 fl (7.5-11.1); PLATELET COUNT 202 K/MM3 (134-434); RDW 15.5 % (11.6-15.6); WHITE BLOOD COUNT 10.7 K/mm3 (4.0-10.0)
--- NOTE | 2016-10-21 07:52 | PN ---
Progress Note (short form) - Note Progress Note: afebrile, awake, alert, NAD. Vital Signs - 24 hr 10/20/16 10/20/16 10/20/16 08:00 15:00 18:20 Temperature 98.2 F 97.8 F Pulse Rate 96 H 93 H Respiratory 20 20 18 Rate Blood Pressure 111/75 123/81 O2 Sat by Pulse 97 Oximetry (%) 10/20/16 10/20/16 10/21/16 21:00 22:00 05:44 Temperature 98.1 F 98.0 F Pulse Rate 85 97 H Respiratory 18 20 20 Rate Blood Pressure 128/86 142/96 O2 Sat by Pulse 97 Oximetry (%) Lungs are Clear Heart S1S2 regular Abdomen soft, NT. No CCE. Laboratory Results - last 24 hr 10/20/16 10/20/16 10/20/16 05:40 05:40 11:22 WBC 10.2 H RBC 4.03 Hgb 12.1 Hct 36.7 MCV 91.3 MCHC 32.8 RDW 15.8 H Plt Count 198 MPV 7.9 Neutrophils % 67.4 Lymphocytes % 21.1 Monocytes % 8.6 Eosinophils % 2.0 D Basophils % 0.9 Sodium 142 Potassium 4.1 Chloride 105 Carbon Dioxide 23 Anion Gap 14 BUN 21 H Creatinine 0.8 Creat Clearance w eGFR > 60 POC Glucometer 287 Random Glucose 254 H Calcium 9.2 Total Bilirubin 0.5 AST 19 ALT 18 Alkaline Phosphatase 63 Total Protein 5.8 L Albumin 2.6 L 10/20/16 10/20/16 10/21/16 17:21 21:23 05:55 WBC 10.7 H RBC 4.01 Hgb 12.2 Hct 36.5 MCV 91.2 MCHC 33.5 RDW 15.5 Plt Count 202 MPV 8.3 Neutrophils % 72.0 Lymphocytes % 17.9 Monocytes % 7.4 Eosinophils % 2.1 Basophils % 0.6 Sodium Potassium Chloride Carbon Dioxide Anion Gap BUN Creatinine Creat Clearance w eGFR POC Glucometer 244 237 Random Glucose Calcium Total Bilirubin AST ALT Alkaline Phosphatase Total Protein Albumin 10/21/16 06:02 WBC RBC Hgb Hct MCV MCHC RDW Plt Count MPV Neutrophils % Lymphocytes % Monocytes % Eosinophils % Basophils % Sodium Potassium Chloride Carbon Dioxide Anion Gap BUN Creatinine Creat Clearance w eGFR POC Glucometer 193 Random Glucose Calcium Total Bilirubin AST ALT Alkaline Phosphatase Total Protein Albumin Current Active Problems Problem Status Diagnosed Aspiration into airway Acute Cough Acute HLD (hyperlipidemia) Acute Metabolic acidosis Acute Pneumonia Acute Sepsis Acute Toxic metabolic encephalopathy Acute UTI (urinary tract infection) Acute Plan US kidneys-if no obstruction-will d/c to [facility] on PO Levaquin Will follow as out pt at [facility] Continue Levemir/Novolog Problem List - Problems (1) Aspiration into airway Code(s): T17.908A - UNSP FB IN RESP TRACT, PART UNSP CAUSING OTH INJURY, INIT Qualifiers: Encounter type: initial encounter Qualified Code(s): T17.908A - Unspecified foreign body in respiratory tract, part unspecified causing other injury, initial encounter (2) Sepsis Code(s): A41.9 - SEPSIS, UNSPECIFIED ORGANISM Qualifiers: Sepsis type: sepsis due to unspecified organism Qualified Code(s): A41.9 - Sepsis, unspecified organism (3) Diabetes Code(s): E11.9 - TYPE 2 DIABETES MELLITUS WITHOUT COMPLICATIONS Qualifiers: Diabetes mellitus type: type 2 Diabetes mellitus complication status: without complication (4) UTI (urinary tract infection) Code(s): N39.0 - URINARY TRACT INFECTION, SITE NOT SPECIFIED Qualifiers: Urinary tract infection type: site unspecified Hematuria presence: without hematuria Qualified Code(s): N39.0 - Urinary tract infection, site not specified (5) Toxic metabolic encephalopathy Code(s): G92 - TOXIC ENCEPHALOPATHY
--- NOTE | 2016-10-21 07:54 | DS ---
Physical Examination Vital Signs: Vital Signs Temperature 98.0 F 10/21/16 05:44 Pulse Rate 97 H 10/21/16 05:44 Respiratory Rate 20 10/21/16 05:44 Blood Pressure 142/96 10/21/16 05:44 O2 Sat by Pulse Oximetry (%) 97 10/20/16 21:00 Constitutional: Yes: No Distress, Calm Eyes: Yes: Conjunctiva Clear, EOM Intact HENT: Yes: Atraumatic, Normocephalic Neck: Yes: Supple, Trachea Midline Cardiovascular: Yes: Regular Rate and Rhythm Respiratory: Yes: Regular, CTA Bilaterally Gastrointestinal: Yes: Normal Bowel Sounds, Soft ...Rectal Exam: Yes: Deferred Renal/: No: Anuria, CVA Tenderness - Left, CVA Tenderness - Right Breast(s): Yes: WNL Extremities: No: Calf Tenderness, Cold, Cyanosis Edema: No ...Motor Strength: WNL Psychiatric: Yes: Alert. No: Oriented Labs: CBC, BMP 10/21/16 05:55 10/20/16 05:40 Discharge Summary Reason For Visit: SEPSIS, PNEUMONIA, MTEABOLIS ACIDOSIS Current Active Problems Aspiration into airway (Acute) Cough (Acute) HLD (hyperlipidemia) (Acute) Metabolic acidosis (Acute) Pneumonia (Acute) Sepsis (Acute) Toxic metabolic encephalopathy (Acute) UTI (urinary tract infection) (Acute) Condition: Improved - Instructions Referrals: Gilberto Irby MD [Primary Care Provider] - [facility] - Home Medications Comprehensive Discharge Medication List: Ambulatory Orders Acetaminophen [Tylenol] 1,000 mg PO PRN PRN 10/18/16 Allopurinol 300 mg PO DAILY 10/18/16 Carbidopa/Levodopa [Carbidopa-Levodopa 25-100 Tab] 1 each PO TID 10/18/16 Cholecalciferol (Vitamin D3) [Vitamin D3] 1,000 unit PO DAILY 10/18/16 Ezetimibe [Zetia] 10 mg PO DAILY 10/18/16 Guaifenesin Dm [Robitussin Dm] 5 ml GT TID 10/18/16 Insulin Aspart [Novolog] 8 unit SQ TID 10/18/16 Insulin Detemir [Levemir Flextouch] 20 unit SQ HS 10/18/16 Loratadine 10 mg PO DAILY 10/18/16 Metformin HCl [Metformin HCl ER] 1,000 mg PO BID 10/18/16 Omeprazole 20 mg PO DAILY 10/18/16 Sitagliptin Phosphate [Januvia] 100 mg PO DAILY 10/18/16 Tramadol HCl 25 mg PO PRN PRN 10/18/16
[2016-10-21] MEDS: CHOLECALCIFEROL (VITAMIN D3) 1,000 UNIT TABLET (FP) PO SCH (10:34)
[2016-10-21] MEDS: LORATADINE 10 MG TABLET PO SCH (10:34)
[2016-10-21] MEDS: LACTOBACILLUS ACIDOPHILUS 1 EACH TAB (FP) PO SCH (10:34)
[2016-10-21] MEDS: EZETIMIBE 10 MG TABLET (FP) PO SCH (10:34)
[2016-10-21] MEDS: PANTOPRAZOLE 20 MG TABLET (FP) PO SCH (10:34)
[2016-10-21] MEDS: ALLOPURINOL 300 MG TABLET (FP) PO SCH (10:34)
--- NOTE | 2016-10-21 11:17 | PN ---
Progress Note (short form) - Note Progress Note: quite alert cough improved feels better Vital Signs Period Temp Pulse Resp BP Sys/Doyle Pulse Ox Last 24 Hr 97.8 F-98.2 F 85-100 18-20 111-142/75-96 97 cor-rrr lungs decreeased bs at bases abd soft,nt ext no edema CBC, BMP 10/21/16 05:55 10/20/16 05:40 Microbiology 10/18/16 08:32 Blood - Peripheral Venous Blood Culture - Preliminary NO GROWTH OBTAINED AFTER 72 HOURS, INCUBATION TO CONTINUE FOR 2 DAYS. 10/18/16 08:32 Blood - Peripheral Venous Blood Culture - Preliminary NO GROWTH OBTAINED AFTER 72 HOURS, INCUBATION TO CONTINUE FOR 2 DAYS. 10/18/16 08:32 Urine - Urine Clean Catch Urine Culture - Final Escherichia Coli 10/19/16 20:20 Urine For Antigen Detection Legionella Antigen - Final 10/19/16 20:20 Urine For Antigen Detection Streptococcus pneumoniae Antigen (M - Final 10/18/16 08:32 Serum Mycoplasma Antibody - Preliminary a/p pneumonia ?pen allergy possible aspiration ecoli uti add probiotics agree with plans to switch to po levaquin for discharge today
[2016-10-21 14:01] VITALS: TEMP 98.4
[2016-10-21 14:05] VITALS: BP 118/86; PULSE 107
== END 2016-10-21 15:49 | DRG 871 ==
LOC: JER 08:17 → JERBED 09:39 → J4W 17:58 → J6S 10-20 15:30
PROVIDERS: ADMIT Internal Medicine; ATTEND Internal Medicine
DX: A41.9 Sepsis, unspecified organism (principal); G92 Toxic encephalopathy; J69.0 Pneumonitis due to inhalation of food and vomit; N39.0 Urinary tract infection, site not specified; E87.2 Acidosis; B96.20 Unspecified Escherichia coli [E. coli] as the cause of diseases classified elsewhere; E78.5 Hyperlipidemia, unspecified; E11.9 Type 2 diabetes mellitus without complications; G20 Parkinson's disease; F02.80 Dementia in other diseases classified elsewhere, unspecified severity, without behavioral disturbance, psychotic disturbance, mood disturbance, and anxiety; K21.9 Gastro-esophageal reflux disease without esophagitis; M10.9 Gout, unspecified; M48.00 Spinal stenosis, site unspecified; R26.9 Unspecified abnormalities of gait and mobility; I10 Essential (primary) hypertension; Z86.73 Personal history of transient ischemic attack (TIA), and cerebral infarction without residual deficits; Z95.0 Presence of cardiac pacemaker
CPT/HCPCS: 36415; 36600; 70450-TC; 71010-TC; 76775-TC; 80053; 81003; 81015; 82375; 82550; 82803; 83050; 83605; 83880; 84484; 85025; 85610; 85730; 86738; 86850; 86900; 86901; 87040; 87086; 87186; 87899; 93005; 93010; 97116-GP; 97161-GP; 99283-25

== ENCOUNTER 2019-07-26 01:03 | Inpatient (IN) | payer OTHER ==
--- NOTE | 2019-07-26 01:43 | PDOC ---
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 Per caregiver at bedside, pt was fully alert and conversant this morning. She offered no complaints to her or the nursing staff at the time. Pt s/p tylenol at DC prior to arrival. temp s/p tylenol 100 rectally then 100.5F now. 07/26/19 01:57 ROS: unobtainable Allergies: PCNs, Morphine, ibuprofen PE: Last Vital Signs Temp Pulse Resp BP Pulse Ox 100.2 F H 67 18 102/65 100 07/26/19 01:10 07/26/19 01:10 07/26/19 01:10 07/26/19 01:10 07/26/19 01:10 GEN: mild distressed (moaning), confused, diaphoretic HEENT: PERRLA, mildly dry membranes NECK: no JVD CHEST: vesicular breath sounds b/l but reduced at the bases HEART: RRR no murmur, rubs or gallop ABDOMEN: + BS, soft and flat, NTND Extremities: 2+ pulses, no edema SKIN: no bruises PSYCH: confused Neuro: confused,unable to perform Assessment: AMS poss due to infection vs electrolyte abnormality vs cardiac 07/26/19 02:02 sepsis order set including but not limited to : CBC, CMP, UA, UC and blood culture, CXR, EKG 07/26/19 02:30 EKG showed atrial-sensed ventricular paced rhythm CBC WBC 14.1 K/mm3 (4.0-10.0) H 07/26/19 01:50 RBC 3.42 M/mm3 (3.60-5.2) L 07/26/19 01:50 Hgb 10.0 GM/dL (10.7-15.3) L 07/26/19 01:50 Hct 31.3 % (32.4-45.2) L 07/26/19 01:50 MCV 91.7 fl (80-96) 07/26/19 01:50 MCH 29.4 pg (25.7-33.7) 07/26/19 01:50 MCHC 32.1 g/dl (32.0-36.0) 07/26/19 01:50 RDW 14.1 % (11.6-15.6) 07/26/19 01:50 Plt Count 269 K/MM3 (134-434) D 07/26/19 01:50 MPV 8.5 fl (7.5-11.1) 07/26/19 01:50 Absolute Neuts (auto) 10.6 K/mm3 (1.5-8.0) H 07/26/19 01:50 Neutrophils % 75.4 % (42.8-82.8) 07/26/19 01:50 Lymphocytes % 12.8 % (8-40) D 07/26/19 01:50 Monocytes % 10.4 % (3.8-10.2) H 07/26/19 01:50 Eosinophils % 0.3 % (0-4.5) D 07/26/19 01:50 Basophils % 1.1 % (0-2.0) 07/26/19 01:50 Nucleated RBC % 0 % (0-0) 07/26/19 01:50 leukocytosis at 14.1, anemic at 10/31.3 CXR with e/o RLL infiltrate suspicious for aspiration will give one dose of clindamycin after discussion with attending 07/26/19 02:32 UA positive for UTI will give 1gm rocephin after discussion with attending 07/26/19 02:35 INR, PTT INR 1.07 (0.83-1.09) 07/26/19 01:50 PT 12.6, aPTT 33.0 07/26/19 02:39 CMP pending, Influenza and RSV pending 07/26/19 02:49 CMP Sodium 138 mmol/L (136-145) 07/26/19 01:50 Potassium 5.5 mmol/L (3.5-5.1) H 07/26/19 01:50 Chloride 105 mmol/L (98-107) 07/26/19 01:50 Carbon Dioxide 21 mmol/L (21-32) 07/26/19 01:50 Anion Gap 12 MMOL/L (8-16) 07/26/19 01:50 BUN 99.3 mg/dL (7-18) H 07/26/19 01:50 Creatinine 4.1 mg/dL (0.55-1.3) H 07/26/19 01:50 Est GFR (CKD-EPI)AfAm 11.35 07/26/19 01:50 Est GFR (CKD-EPI)NonAf 9.79 07/26/19 01:50 Random Glucose 238 mg/dL (74-106) H 07/26/19 01:50 Calcium 9.2 mg/dL (8.5-10.1) 07/26/19 01:50 Total Bilirubin 0.3 mg/dL (0.2-1) 07/26/19 01:50 AST 19 U/L (15-37) 07/26/19 01:50 ALT 9 U/L (13-61) L 07/26/19 01:50 Alkaline Phosphatase 84 U/L (45-117) 07/26/19 01:50 Total Protein 7.0 g/dl (6.4-8.2) 07/26/19 01:50 Albumin 2.6 g/dl (3.4-5.0) L 07/26/19 01:50 OMER last doc Cr 0.8, hyperkalemic at 5.5, hyperglycemia at 238 2L NS based on 30cc/kg for fluid resuscitation will start strick I&O will recommend giving insulin and albuterol to address both sugar and potassium as pt is confused and high aspiration risk 07/26/19 03:00 flu and RSV are negative Lactic 3.7 07/26/19 03:02 will send admission microblog 07/26/19 03:05 Dr. Irby courtesy called placed. he is aware 07/26/19 03:20 signed out pt to admitting. will go to [facility] under Dr Marino Past History - Past Medical History Allergies/Adverse Reactions: Allergies Allergy/AdvReac Type Severity Reaction Status Date / Time ibuprofen Allergy Verified 07/26/19 01:39 morphine Allergy Verified 07/26/19 01:39 Penicillins Allergy Verified 07/26/19 01:39 Home Medications: Ambulatory Orders Acetaminophen [Tylenol] 650 mg PO Q6H PRN 10/18/16 Cholecalciferol (Vitamin D3) [Vitamin D3] 2,000 unit PO DAILY 10/18/16 Ezetimibe [Zetia] 10 mg PO DAILY 10/18/16 Insulin Aspart [Novolog Flexpen] 4 unit SQ DAILY 10/18/16 Insulin Detemir [Levemir Flextouch] 20 unit SQ HS 10/18/16 Sitagliptin Phosphate [Januvia] 25 mg PO DAILY 10/18/16 metFORMIN HCL [Metformin ER Osmotic] 1,000 mg PO BID 10/18/16 Furosemide [Lasix] 20 mg PO DAILY 11/15/17 Acidoph/L.bulg/Bif.b/S.thermop [Keri-Bid Caplet] 1 each PO DAILY 07/26/19 Bacitracin/Polymyxin Ointment [Polysporin Ointment -] 1 applic TP BID 07/26/19 Carbidopa/Levodopa *Cr* 50/200 [Sinemet *Cr* 50/200 -] 1 combo PO BID 07/26/19 Cholestyramine (with Sugar) [Cholestyramine Packet] 4 gm PO DAILY 07/26/19 Nadolol [Corgard -] 20 mg PO DAILY 07/26/19 Rivastigmine Tartrate [Rivastigmine] 3 mg PO BID 07/26/19 COPD: No Diabetes: Yes Disorders: Yes (UTI'S) HTN: Yes Hypercholesterolemia: Yes - Immunization History Immunization Up to Date: Yes - Psycho Social/Smoking Cessation Hx Smoking History: Never smoked Have you smoked in the past 12 months: No Information on smoking cessation initiated: No Hx Alcohol Use: No Drug/Substance Use Hx: No Substance Use Type: None Review of Systems - Review of Systems Able to Perform ROS?: No (pt altered) *Physical Exam - Vital Signs Last Vital Signs Temp Pulse Resp BP Pulse Ox 100.2 F H 67 18 102/65 100 07/26/19 01:10 07/26/19 01:10 07/26/19 01:10 07/26/19 01:10 07/26/19 01:10 - Physical Exam General Appearance: Yes: Apparent Distress (pt altered) HEENT: positive: EOMI, AUBREE Neck: positive: Supple Respiratory/Chest: positive: Decreased Breath Sounds Cardiovascular: positive: Regular Rhythm, S1, S2. negative: Edema, JVD Gastrointestinal/Abdominal: positive: Normal Bowel Sounds, Soft Rectal Exam: positive: deferred Musculoskeletal: negative: CVA Tenderness Extremity: negative: Pedal Edema, Swelling Integumentary: positive: Warm, Moist Neurologic: positive: Responsive ED Treatment Course - LABORATORY CBC & Chemistry Diagram: 07/26/19 01:50 07/26/19 04:40 - RADIOLOGY Radiology Studies Ordered: Category Date Time Status CHEST X-RAY PORTABLE* [RAD] Stat Radiology 07/26/19 01:32 Ordered Discharge - Discharge Information Problems reviewed: Yes Clinical Impression/Diagnosis: Sepsis Qualifiers: Sepsis type: sepsis due to unspecified organism Severe sepsis acute organ dysfunction type: acute renal failure Qualified Code(s): A41.9 - Sepsis, unspecified organism UTI (urinary tract infection) Qualifiers: Urinary tract infection type: site unspecified Hematuria presence: without hematuria Qualified Code(s): N39.0 - Urinary tract infection, site not specified Aspiration into airway Qualifiers: Encounter type: initial encounter Qualified Code(s): T17.908A - Unspecified foreign body in respiratory tract, part unspecified causing other injury, initial encounter Condition: Improved - Admission Yes - Follow up/Referral - Patient Discharge Instructions - Post Discharge Activity
[2019-07-26 02:08] LABS: VENOUS PH 7.39 (7.31-7.41)
[2019-07-26 02:11] LABS: VENOUS PO2 < 49 mmHg (28-48)
[2019-07-26 02:26] LABS: BASO % 1.1 % (0-2.0); EOS % 0.3 % (0-4.5); HEMATOCRIT 31.3 % (32.4-45.2); LYMPH % 12.8 % (8-40); MCH 29.4 pg (25.7-33.7); MCHC 32.1 g/dl (32.0-36.0); MEAN CELL VOLUME 91.7 fl (80-96); MEAN PLT VOLUME 8.5 fl (7.5-11.1); MONO % 10.4 % (3.8-10.2); NEUT % 75.4 % (42.8-82.8); PLATELET COUNT 269 K/MM3 (134-434); RBC 3.42 M/mm3 (3.60-5.2); RDW 14.1 % (11.6-15.6); WHITE BLOOD COUNT 14.1 K/mm3 (4.0-10.0)
[2019-07-26 02:28] LABS: EPI CELLS 1.4 /HPF (0-5/HPF); HYALINE CASTS 1 /lpf (0-8); URINE APPEARANCE TURBID; URINE BACTERIA >9000 /hpf (NEGATIVE); URINE BILIRUBIN NEGATIVE (NEGATIVE); URINE COLOR YELLOW; URINE GLUCOSE (UA) NEGATIVE (NEGATIVE); URINE KETONE NEGATIVE (NEGATIVE); URINE LEUK ESTERASE 3+ (NEGATIVE); URINE NITRITE NEGATIVE (NEGATIVE); URINE PROTEIN 3+ (NEGATIVE); URINE RBC 127 /hpf (0-4); URINE UROBILINOGEN 0.2 mg/dL (0.2-1.0); URINE WBC 313 /hpf (0-5)
[2019-07-26] MEDS ORDERED: CLINDAMYCIN 600MG PREMIX IVPB 600 MG/50 ML BAG IVPB ONE ×2 (02:29→02:52)
[2019-07-26] MEDS ORDERED: CEFTRIAXONE 1,000 MG in DEXTROSE 5%-WATER - 50 ML IVPB ONE (02:36)
--- NOTE | 2019-07-26 02:46 | PDOC ---
Documentation entered by Noe Morfin SCRIBE, acting as scribe for Elsa Martinez DO. Elsa Martinez DO: This documentation has been prepared by the Navjot carr Nirvannie, SCRIBE, under my direction and personally reviewed by me in its entirety. I confirm that the documentation accurately reflects all work, treatment, procedures, and medical decision making performed by me. Attending Attestation - Resident Resident Name: DavonteSeJanine - ED Attending Attestation I have performed the following: I have examined & evaluated the patient, The case was reviewed & discussed with the resident, I agree w/resident's findings & plan, Exceptions are as noted - HPI HPI: 07/26/19 01:59 The patient is a 79 year old female, with a significant past medical history of hypertension, hypercholesterolemia, diabetes mellitus, pituitary adenoma, Parkinson's Disease, s/p pacemaker, who presents to the emergency department from [facility] with altered mental status, fevers, chills, and diaphoresis. As per [facility], the patient is normally alert and conversant but, has become increasingly somnolent, prompting her arrival to the ED. Allergies: Ibuprofen, Morphine, Penicillins Primary Care Physician: Dr. Irby - Physicial Exam PE: 07/26/19 02:38 see resident exam - Medical Decision Making 07/26/19 02:38 79-year-old female with altered mental status and fever Chest x-ray shows increased markings in the right middle lobe/right perihilar region, possibly consistent with aspiration infiltrate Urinalysis is positive for urinary tract infection Rocephin and clindamycin given due to penicillin allergy We will admit for further management
[2019-07-26 02:48] LABS: ALBUMIN 2.6 g/dl (3.4-5.0); BILIRUBIN,TOTAL 0.3 mg/dL (0.2-1); BLOOD UREA NITROGEN 99.3 mg/dL (7-18); CALCIUM 9.2 mg/dL (8.5-10.1); CREATININE 4.1 mg/dL (0.55-1.3); POTASSIUM 5.5 mmol/L (3.5-5.1)
[2019-07-26] MEDS ORDERED: CEFTRIAXONE 1 GM/50 ML BAG ONE (02:53)
[2019-07-26] MEDS ORDERED: SODIUM CHLORIDE 1,000 ML IV STA (02:57)
[2019-07-26] MEDS ORDERED: SODIUM CHLORIDE 2,000 ML IV STA (03:00)
[2019-07-26] MEDS ORDERED: INSULIN SLIDING SCALE (NOVOLOG) 1 VIAL SQ SCH ×2 (03:08→07:00)
[2019-07-26] MEDS ORDERED: ALBUTEROL SO4 0.042% IH SOL 1.25 MG/3 ML VIAL.NEB NEB ONE (03:08)
[2019-07-26] MEDS ORDERED: Insulin (LOG) Aspart 100 UNITS/ML VIAL SQ ONE (03:18)
[2019-07-26 03:29] LABS: MAGNESIUM 2.4 mg/dL (1.8-2.4); PHOSPHOROUS 3.9 mg/dL (2.5-4.9)
[2019-07-26 03:41] LABS: INR 1.06 (0.83-1.09); PROTHROMBIN TIME (PATIENT) 12.5 SEC (9.7-13.0)
[2019-07-26] MEDS ORDERED: ALBUTEROL SO4 0.083% IH SOL 2.5 MG/3 ML VIAL.NEB. NEB ONE (03:46)
[2019-07-26 05:15] LABS: CALCIUM 8.1 mg/dL (8.5-10.1); CREATININE 3.8 mg/dL (0.55-1.3); POTASSIUM 4.8 mmol/L (3.5-5.1)
[2019-07-26] MEDS ORDERED: ACETAMINOPHEN 325 MG TABLET (FP) PO PRN (05:20)
--- NOTE | 2019-07-26 05:27 | HP ---
CHIEF COMPLAINT: fever, altered mental status PCP: Surekha HISTORY OF PRESENT ILLNESS: This is a 79yF with PMH significant for CHF, Afib, HTN, HLD, Parkinson's disease , Alzheimer's disease, c diff who presented to the ED from [facility] for fever, chills, diaphoresis and altered mental status. Temperature at PA was 103.2. As per staff patient fully alert and conversant without complaints yesterday AM. 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, DM, hypothyroidism, Gout, Parkinson's disease with Lewy bodies, Alzheimer's disease, c diff, pituitary adenoma, lacunar infarct, spinal stenosis with h/o falls, GERD, Diverticulosis PAST SURGICAL HISTORY: unk Social History: unable to obtain due to mental status Smoking: unk Alcohol: unk Drugs: unk Allergies ibuprofen Allergy (Verified 07/26/19 01:39) morphine Allergy (Verified 07/26/19 01:39) Penicillins Allergy (Verified 07/26/19 01:39) HOME MEDICATIONS: 3 Medication Instructions Recorded Acetaminophen [Tylenol] 650 mg PO Q6H PRN 10/18/16 Cholecalciferol (Vitamin D3) 2,000 unit PO DAILY 10/18/16 [Vitamin D3] Ezetimibe [Zetia] 10 mg PO DAILY 10/18/16 Insulin Aspart [Novolog Flexpen] 4 unit SQ DAILY 10/18/16 Insulin Detemir [Levemir Flextouch] 20 unit SQ HS 10/18/16 Sitagliptin Phosphate [Januvia] 25 mg PO DAILY 10/18/16 metFORMIN HCL [Metformin ER 1,000 mg PO BID 10/18/16 Osmotic] Furosemide [Lasix] 20 mg PO DAILY 11/15/17 Acidoph/L.bulg/Bif.b/S.thermop 1 each PO DAILY 07/26/19 [Keri-Bid Caplet] Bacitracin/Polymyxin Ointment 1 applic TP BID 07/26/19 [Polysporin Ointment -] Carbidopa/Levodopa *Cr* 50/200 1 combo PO BID 07/26/19 [Sinemet *Cr* 50/200 -] Cholestyramine (with Sugar) 4 gm PO DAILY 07/26/19 [Cholestyramine Packet] Nadolol [Corgard -] 20 mg PO DAILY 07/26/19 Rivastigmine Tartrate 3 mg PO BID 07/26/19 [Rivastigmine] REVIEW OF SYSTEMS CONSTITUTIONAL: Present: fever, chills, diaphoresis Absent: generalized weakness, malaise, loss of appetite, weight change HEENT: Absent: rhinorrhea, nasal congestion, throat pain, throat swelling, difficulty swallowing, mouth swelling, ear pain, eye pain, visual changes CARDIOVASCULAR: Absent: chest pain, syncope, palpitations, irregular heart rate, lightheadedness , peripheral edema RESPIRATORY: Absent: cough, shortness of breath, dyspnea with exertion, orthopnea, wheezing, stridor, hemoptysis GASTROINTESTINAL: Absent: abdominal pain, abdominal distension, nausea, vomiting, diarrhea, constipation, melena, hematochezia GENITOURINARY: Absent: dysuria, frequency, urgency, hesitancy, hematuria, flank pain, genital pain MUSCULOSKELETAL: Absent: myalgia, arthralgia, joint swelling, back pain, neck pain SKIN: Absent: rash, itching, pallor HEMATOLOGIC/IMMUNOLOGIC: Absent: easy bleeding, easy bruising, lymphadenopathy, frequent infections ENDOCRINE: Absent: unexplained weight gain, unexplained weight loss, heat intolerance, cold intolerance NEUROLOGIC: Absent: headache, focal weakness or paresthesias, dizziness, unsteady gait, seizure, mental status changes, bladder or bowel incontinence PSYCHIATRIC: Absent: anxiety, depression, suicidal or homicidal ideation, hallucinations. PHYSICAL EXAMINATION Vital Signs - 24 hr 3 07/26/19 07/26/19 07/26/19 01:10 02:00 02:27 Temperature 100.2 F H 100.5 F H Pulse Rate 67 63 63 Respiratory 18 18 Rate Blood Pressure 102/65 O2 Sat by Pulse 100 98 100 Oximetry (%) GENERAL: Easily arousable, and oriented to person, in no acute distress. HEAD: Normal with no signs of trauma. EYES: Pupils equal, round and reactive to light, extraocular movements intact, sclera anicteric, conjunctiva clear. No lid lag. EARS, NOSE, THROAT: Ears normal, nares patent, oropharynx clear without exudates. Moist mucous membranes. NECK: Normal range of motion, supple without lymphadenopathy, JVD, or masses. LUNGS: Breath sounds equal, crackles left base, otherwise clear to auscultation bilaterally. No wheezes. No accessory muscle use. HEART: Regular rate and rhythm, normal S1 and S2 without murmur, rub or gallop. ABDOMEN: Soft, nontender, not distended, normoactive bowel sounds, no guarding, no rebound, no masses. No hepatomegaly or splenomegaly. MUSCULOSKELETAL: Normal range of motion at all joints. No bony deformities or tenderness. No CVA tenderness. UPPER EXTREMITIES: 2+ pulses, warm, well-perfused. No cyanosis. No clubbing. No peripheral edema. LOWER EXTREMITIES: 2+ pulses, warm, well-perfused. No calf tenderness. No peripheral edema. NEUROLOGICAL: Cranial nerves II-XII intact. Normal speech. PSYCHIATRIC: Cooperative. Good eye contact. Appropriate mood and affect. SKIN: Warm, dry, normal turgor, no rashes or lesions noted, normal capillary refill. Laboratory Results - last 24 hr 3 07/26/19 07/26/19 07/26/19 01:50 01:50 01:50 WBC 14.1 H RBC 3.42 L Hgb 10.0 L Hct 31.3 L MCV 91.7 MCH 29.4 MCHC 32.1 RDW 14.1 Plt Count 269 D MPV 8.5 Absolute Neuts (auto) 10.6 H Neutrophils % 75.4 Lymphocytes % 12.8 D Monocytes % 10.4 H Eosinophils % 0.3 D Basophils % 1.1 Nucleated RBC % 0 PT with INR 12.50 INR 1.06 PTT (Actin FS) 34.0 VBG pH POC VBG pCO2 POC VBG pO2 VBG HCO3 VBG O2 Sat (Norberto) VBG Base Excess Sodium Potassium Chloride Carbon Dioxide Anion Gap BUN Creatinine Est GFR (CKD-EPI)AfAm Est GFR (CKD-EPI)NonAf Random Glucose Lactic Acid Calcium Phosphorus 3.9 Magnesium 2.4 Total Bilirubin AST ALT Alkaline Phosphatase Creatine Kinase 52 Troponin I < 0.02 Total Protein Albumin Urine Color Urine Appearance Urine pH Ur Specific [place] Urine Protein Urine Glucose (UA) Urine Ketones Urine Blood Urine Nitrite Urine Bilirubin Urine Urobilinogen Ur Leukocyte Esterase Urine WBC (Auto) Urine RBC (Auto) Urine Casts (Auto) U Epithel Cells (Auto) Urine Bacteria (Auto) Influenza A (Rapid) Influenza B (Rapid) RSV Rapid 3 02/26/20 02/26/20 02/26/20 01:50 01:50 01:50 WBC RBC Hgb Hct MCV MCH MCHC RDW Plt Count MPV Absolute Neuts (auto) Neutrophils % Lymphocytes % Monocytes % Eosinophils % Basophils % Nucleated RBC % PT with INR INR PTT (Actin FS) VBG pH 7.39 POC VBG pCO2 37.0 L POC VBG pO2 < 49 H VBG HCO3 22.0 L VBG O2 Sat (Norberto) 80.5 H VBG Base Excess -2.0 Sodium 138 Potassium 5.5 H Chloride 105 Carbon Dioxide 21 Anion Gap 12 BUN 99.3 H Creatinine 4.1 H Est GFR (CKD-EPI)AfAm 11.35 Est GFR (CKD-EPI)NonAf 9.79 Random Glucose 238 H Lactic Acid 3.7 H* Calcium 9.2 Phosphorus Magnesium Total Bilirubin 0.3 AST 19 ALT 9 L Alkaline Phosphatase 84 Creatine Kinase Troponin I Total Protein 7.0 Albumin 2.6 L Urine Color Urine Appearance Urine pH Ur Specific [place] Urine Protein Urine Glucose (UA) Urine Ketones Urine Blood Urine Nitrite Urine Bilirubin Urine Urobilinogen Ur Leukocyte Esterase Urine WBC (Auto) Urine RBC (Auto) Urine Casts (Auto) U Epithel Cells (Auto) Urine Bacteria (Auto) Influenza A (Rapid) Influenza B (Rapid) RSV Rapid 3 07/26/19 07/26/19 07/26/19 02:03 02:03 02:15 WBC RBC Hgb Hct MCV MCH MCHC RDW Plt Count MPV Absolute Neuts (auto) Neutrophils % Lymphocytes % Monocytes % Eosinophils % Basophils % Nucleated RBC % PT with INR INR PTT (Actin FS) VBG pH POC VBG pCO2 POC VBG pO2 VBG HCO3 VBG O2 Sat (Norberto) VBG Base Excess Sodium Potassium Chloride Carbon Dioxide Anion Gap BUN Creatinine Est GFR (CKD-EPI)AfAm Est GFR (CKD-EPI)NonAf Random Glucose Lactic Acid Calcium Phosphorus Magnesium Total Bilirubin AST ALT Alkaline Phosphatase Creatine Kinase Troponin I Total Protein Albumin Urine Color Yellow Urine Appearance Turbid Urine pH 6.0 Ur Specific [place] 1.016 Urine Protein 3+ H Urine Glucose (UA) Negative Urine Ketones Negative Urine Blood 3+ H Urine Nitrite Negative Urine Bilirubin Negative Urine Urobilinogen 0.2 Ur Leukocyte Esterase 3+ H Urine WBC (Auto) 313 Urine RBC (Auto) 127 Urine Casts (Auto) 1 U Epithel Cells (Auto) 1.4 Urine Bacteria (Auto) >9000 Influenza A (Rapid) Negative Influenza B (Rapid) Negative RSV Rapid Negative 3 07/26/19 04:40 WBC RBC Hgb Hct MCV MCH MCHC RDW Plt Count MPV Absolute Neuts (auto) Neutrophils % Lymphocytes % Monocytes % Eosinophils % Basophils % Nucleated RBC % PT with INR INR PTT (Actin FS) VBG pH POC VBG pCO2 POC VBG pO2 VBG HCO3 VBG O2 Sat (Norberto) VBG Base Excess Sodium 141 Potassium 4.8 Chloride 113 H Carbon Dioxide 21 Anion Gap 8 BUN 93.0 H Creatinine 3.8 H Est GFR (CKD-EPI)AfAm 12.44 Est GFR (CKD-EPI)NonAf 10.73 Random Glucose 233 H Lactic Acid Calcium 8.1 L Phosphorus Magnesium Total Bilirubin AST ALT Alkaline Phosphatase Creatine Kinase Troponin I Total Protein Albumin Urine Color Urine Appearance Urine pH Ur Specific [place] Urine Protein Urine Glucose (UA) Urine Ketones Urine Blood Urine Nitrite Urine Bilirubin Urine Urobilinogen Ur Leukocyte Esterase Urine WBC (Auto) Urine RBC (Auto) Urine Casts (Auto) U Epithel Cells (Auto) Urine Bacteria (Auto) Influenza A (Rapid) Influenza B (Rapid) RSV Rapid CXR: grossly unchanged from prior xray 10/20/2016, final read pending ASSESSMENT/PLAN: 79yF with significant PMH HTN, CHF, Afib, Parkinson's disease, c diff now admitted with sepsis in s/o UTI c/b UTI Sepsis due to UTI - s/p 2L NS in ED, lactate down to 2.4, hold further IVF presently in s/o h/o CHF - cont ceftriaxone daily, broaden if final xray read with infiltrates or consolidation - monitor I/Os OMER in s/o Sepsis - prerenal vs ATN - urine lytes - renal sono if creatinine not improving with management of sepsis - monitor creatinine - renally dose all medications - avoid nephrotoxic agents HTN/HLD/CHF - hold nadolol and furosemide for now in s/o sepsis, restart if BP/HR elevated DM - cont levemir - BGM AC/HS with novolog sliding scale - hold metformin and januvia while inpatient Parkinson's disease - cont home sinemet, rivastigmine FEN - po fluids as tolerated, monitor volume status, hold on further IVF for now, start maintenance if not taking po - monitor BMP, repeat with improved K - diabetic diet as tolerated Dispo: pt currently requires inpatient management of her emergent condition. Family Medical History Family History: Unable to Obtain (altered mental status/dementia) Visit type - Emergency Visit Emergency Visit: Yes ED Registration Date: 07/26/19 Care time: The patient presented to the Emergency Department on the above date and was hospitalized for further evaluation of their emergent condition. - New Patient This patient is new to me today: Yes Date on this admission: 07/26/19 - Critical Care Critical Care patient: No
[2019-07-26 06:29] LABS: MAGNESIUM 2.1 mg/dL (1.8-2.4); PHOSPHOROUS 3.6 mg/dL (2.5-4.9)
[2019-07-26] MEDS ORDERED: SODIUM CHLORIDE 1,000 ML IV SCH ×2 (07:00→07:51)
--- NOTE | 2019-07-26 07:54 | PN ---
Progress Note, Physician Chief Complaint: 79 y.o F [facility] resident was transferred to the ER [facility] due to lethargy, fever 103.2F, distress. 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 Paroxysmal A.Fib. Pituitary adenoma. DM 2 Hypothyroidism Alzheimer's Parkinson's diseaseHTN, CHF Frequent falls, T11-T12 fracture, spinal stenosis. Diverticulosis. C diff. colitis recurrent - Current Medication List Current Medications: Active Medications Acetaminophen (Tylenol -) 650 mg PO Q6H PRN PRN Reason: FEVER Carbidopa/Levodopa (Sinemet *Cr* 50/200 -) 1 combo PO BID [facility] Cholecalciferol (Vitamin D3 -) 2,000 unit PO DAILY [facility] Cholestyramine Resin (Questran Packet -) 4 gm PO DAILY [facility] Ezetimibe (Zetia -) 10 mg PO DAILY [facility] Heparin Sodium (Porcine) (Heparin -) 5,000 unit SQ BID [facility] Ceftriaxone Sodium 1 gm/ (Dextrose) 50 mls @ 200 mls/hr IVPB HS [facility]; Protocol Stop: 08/01/19 21:59 Sodium Chloride (Normal Saline -) 1,000 mls @ 125 mls/hr IV ASDIR [facility] Insulin Aspart (Novolog Vial Sliding Scale -) 1 vial SQ HS [facility]; Protocol Insulin Aspart (Novolog Vial Sliding Scale -) 0 vial SQ TIDAC [facility]; Protocol Lactobacillus Acidophilus (Bacid -) 1 tab PO DAILY [facility] Rivastigmine Tartrate (Exelon) 3 mg PO BID [facility] - Objective Vital Signs: Vital Signs Temperature 97.9 F 07/26/19 06:15 Pulse Rate 60 07/26/19 06:15 Respiratory Rate 18 07/26/19 06:15 Blood Pressure 108/61 07/26/19 06:15 O2 Sat by Pulse Oximetry (%) 97 07/26/19 06:15 Constitutional: Yes: Mild Distress, Pallor. No: Obese Eyes: Yes: Conjunctiva Clear HENT: Yes: Atraumatic, Normocephalic Neck: Yes: Supple, Trachea Midline. No: Lymphadenopathy, Tenderness Cardiovascular: Yes: Regular Rate and Rhythm (PPM), S1, S2, Other (Palpable PPM left chest) Respiratory: Yes: Regular, CTA Bilaterally Gastrointestinal: Yes: Normal Bowel Sounds, Soft. No: Abdomen, Obese ...Rectal Exam: Yes: Deferred Genitourinary: Yes: Price Present (100 cc output since admission) Breast(s): Yes: WNL Integumentary: No: Bruising, Erythema, Jaundice, Laceration, Pressure Ulcer Neurological: Yes: Alert, Lethargy. No: Oriented, Aphasia (Responds to verbal stimuli) ...Motor Strength: WNL Psychiatric: Yes: Alert. No: Oriented, Agitated, Suicidal Ideation Labs: CBC, BMP 07/26/19 01:50 07/26/19 04:40 INR, PTT INR 1.06 (0.83-1.09) 07/26/19 01:50 Laboratory Results - last 24 hr 07/26/19 07/26/19 07/26/19 01:50 01:50 01:50 WBC 14.1 H RBC 3.42 L Hgb 10.0 L Hct 31.3 L MCV 91.7 MCH 29.4 MCHC 32.1 RDW 14.1 Plt Count 269 D MPV 8.5 Absolute Neuts (auto) 10.6 H Neutrophils % 75.4 Lymphocytes % 12.8 D Monocytes % 10.4 H Eosinophils % 0.3 D Basophils % 1.1 Nucleated RBC % 0 PT with INR 12.50 INR 1.06 PTT (Actin FS) 34.0 VBG pH POC VBG pCO2 POC VBG pO2 VBG HCO3 VBG O2 Sat (Norberto) VBG Base Excess Sodium Potassium Chloride Carbon Dioxide Anion Gap BUN Creatinine Est GFR (CKD-EPI)AfAm Est GFR (CKD-EPI)NonAf Random Glucose Lactic Acid Calcium Phosphorus 3.9 Magnesium 2.4 Total Bilirubin AST ALT Alkaline Phosphatase Creatine Kinase 52 Troponin I < 0.02 Total Protein Albumin Urine Color Urine Appearance Urine pH Ur Specific [place] Urine Protein Urine Glucose (UA) Urine Ketones Urine Blood Urine Nitrite Urine Bilirubin Urine Urobilinogen Ur Leukocyte Esterase Urine WBC (Auto) Urine RBC (Auto) Urine Casts (Auto) U Epithel Cells (Auto) Urine Bacteria (Auto) Ur Random Creatinine Ur Random Sodium Ur Random Urea Nitrogn Influenza A (Rapid) Influenza B (Rapid) RSV Rapid 07/26/19 07/26/19 07/26/19 01:50 01:50 01:50 WBC RBC Hgb Hct MCV MCH MCHC RDW Plt Count MPV Absolute Neuts (auto) Neutrophils % Lymphocytes % Monocytes % Eosinophils % Basophils % Nucleated RBC % PT with INR INR PTT (Actin FS) VBG pH 7.39 POC VBG pCO2 37.0 L POC VBG pO2 < 49 H VBG HCO3 22.0 L VBG O2 Sat (Norberto) 80.5 H VBG Base Excess -2.0 Sodium 138 Potassium 5.5 H Chloride 105 Carbon Dioxide 21 Anion Gap 12 BUN 99.3 H Creatinine 4.1 H Est GFR (CKD-EPI)AfAm 11.35 Est GFR (CKD-EPI)NonAf 9.79 Random Glucose 238 H Lactic Acid 3.7 H* Calcium 9.2 Phosphorus Magnesium Total Bilirubin 0.3 AST 19 ALT 9 L Alkaline Phosphatase 84 Creatine Kinase Troponin I Total Protein 7.0 Albumin 2.6 L Urine Color Urine Appearance Urine pH Ur Specific [place] Urine Protein Urine Glucose (UA) Urine Ketones Urine Blood Urine Nitrite Urine Bilirubin Urine Urobilinogen Ur Leukocyte Esterase Urine WBC (Auto) Urine RBC (Auto) Urine Casts (Auto) U Epithel Cells (Auto) Urine Bacteria (Auto) Ur Random Creatinine Ur Random Sodium Ur Random Urea Nitrogn Influenza A (Rapid) Influenza B (Rapid) RSV Rapid 07/26/19 07/26/19 07/26/19 02:03 02:03 02:15 WBC RBC Hgb Hct MCV MCH MCHC RDW Plt Count MPV Absolute Neuts (auto) Neutrophils % Lymphocytes % Monocytes % Eosinophils % Basophils % Nucleated RBC % PT with INR INR PTT (Actin FS) VBG pH POC VBG pCO2 POC VBG pO2 VBG HCO3 VBG O2 Sat (Norberto) VBG Base Excess Sodium Potassium Chloride Carbon Dioxide Anion Gap BUN Creatinine Est GFR (CKD-EPI)AfAm Est GFR (CKD-EPI)NonAf Random Glucose Lactic Acid Calcium Phosphorus Magnesium Total Bilirubin AST ALT Alkaline Phosphatase Creatine Kinase Troponin I Total Protein Albumin Urine Color Yellow Urine Appearance Turbid Urine pH 6.0 Ur Specific [place] 1.016 Urine Protein 3+ H Urine Glucose (UA) Negative Urine Ketones Negative Urine Blood 3+ H Urine Nitrite Negative Urine Bilirubin Negative Urine Urobilinogen 0.2 Ur Leukocyte Esterase 3+ H Urine WBC (Auto) 313 Urine RBC (Auto) 127 Urine Casts (Auto) 1 U Epithel Cells (Auto) 1.4 Urine Bacteria (Auto) >9000 Ur Random Creatinine Ur Random Sodium Ur Random Urea Nitrogn Influenza A (Rapid) Negative Influenza B (Rapid) Negative RSV Rapid Negative 07/26/19 07/26/19 07/26/19 04:40 04:40 06:03 WBC RBC Hgb Hct MCV MCH MCHC RDW Plt Count MPV Absolute Neuts (auto) Neutrophils % Lymphocytes % Monocytes % Eosinophils % Basophils % Nucleated RBC % PT with INR INR PTT (Actin FS) VBG pH POC VBG pCO2 POC VBG pO2 VBG HCO3 VBG O2 Sat (Norberto) VBG Base Excess Sodium 141 Potassium 4.8 Chloride 113 H Carbon Dioxide 21 Anion Gap 8 BUN 93.0 H Creatinine 3.8 H Est GFR (CKD-EPI)AfAm 12.44 Est GFR (CKD-EPI)NonAf 10.73 Random Glucose 233 H Lactic Acid 2.5 H* Calcium 8.1 L Phosphorus 3.6 Magnesium 2.1 Total Bilirubin AST ALT Alkaline Phosphatase Creatine Kinase Troponin I Total Protein Albumin Urine Color Urine Appearance Urine pH Ur Specific [place] Urine Protein Urine Glucose (UA) Urine Ketones Urine Blood Urine Nitrite Urine Bilirubin Urine Urobilinogen Ur Leukocyte Esterase Urine WBC (Auto) Urine RBC (Auto) Urine Casts (Auto) U Epithel Cells (Auto) Urine Bacteria (Auto) Ur Random Creatinine 48.0 Ur Random Sodium Ur Random Urea Nitrogn Influenza A (Rapid) Influenza B (Rapid) RSV Rapid 07/26/19 07/26/19 06:03 06:03 WBC RBC Hgb Hct MCV MCH MCHC RDW Plt Count MPV Absolute Neuts (auto) Neutrophils % Lymphocytes % Monocytes % Eosinophils % Basophils % Nucleated RBC % PT with INR INR PTT (Actin FS) VBG pH POC VBG pCO2 POC VBG pO2 VBG HCO3 VBG O2 Sat (Norberto) VBG Base Excess Sodium Potassium Chloride Carbon Dioxide Anion Gap BUN Creatinine Est GFR (CKD-EPI)AfAm Est GFR (CKD-EPI)NonAf Random Glucose Lactic Acid Calcium Phosphorus Magnesium Total Bilirubin AST ALT Alkaline Phosphatase Creatine Kinase Troponin I Total Protein Albumin Urine Color Urine Appearance Urine pH Ur Specific [place] Urine Protein Urine Glucose (UA) Urine Ketones Urine Blood Urine Nitrite Urine Bilirubin Urine Urobilinogen Ur Leukocyte Esterase Urine WBC (Auto) Urine RBC (Auto) Urine Casts (Auto) U Epithel Cells (Auto) Urine Bacteria (Auto) Ur Random Creatinine Ur Random Sodium 52 Ur Random Urea Nitrogn 438 Influenza A (Rapid) Influenza B (Rapid) RSV Rapid Problem List - Problems (1) Diabetes Assessment/Plan: Continue BGM IV fluids Novolog sliding scale Code(s): E11.9 - TYPE 2 DIABETES MELLITUS WITHOUT COMPLICATIONS Qualifiers: Diabetes mellitus type: type 2 Diabetes mellitus complication status: without complication (2) Sepsis Assessment/Plan: Sepsis due to UTI Bld cx, UA cx -P Ceftriaxone started IV ID consult Lactate decreased to 1.5 will follow. Problems reviewed: Yes Code(s): A41.9 - SEPSIS, UNSPECIFIED ORGANISM Qualifiers: Sepsis type: sepsis due to unspecified organism Severe sepsis acute organ dysfunction type: acute renal failure Qualified Code(s): A41.9 - Sepsis, unspecified organism (3) Toxic metabolic encephalopathy Assessment/Plan: Will follow with IV fluids and Abx Problems reviewed: Yes Code(s): G92 - TOXIC ENCEPHALOPATHY (4) Renal failure (ARF), acute on chronic Assessment/Plan: ARF with hyperkalemia. IV fluids Follow lytes, BUN/CR Nephrology Code(s): N17.9 - ACUTE KIDNEY FAILURE, UNSPECIFIED; N18.9 - CHRONIC KIDNEY DISEASE, UNSPECIFIED (5) Acute hyperkalemia Assessment/Plan: Improved with fluids Follow BMP daily. Code(s): E87.5 - HYPERKALEMIA
[2019-07-26] MEDS: INSULIN SLIDING SCALE (NOVOLOG) 1 VIAL SQ SCH ×4 (08:34→22:31)
[2019-07-26] MEDS: CHOLESTYRAMINE/SUCROSE 4 GM PACKET PO SCH (09:41)
[2019-07-26] MEDS: LACTOBACILLUS ACIDOPHILUS 1 TABLET PO SCH (09:41)
[2019-07-26] MEDS: HEPARIN NA (PORCINE) 5,000 UNITS/ML 1ML VIAL SQ SCH ×2 (09:41→22:27)
[2019-07-26] MEDS: RIVASTIGMINE TARTRATE 3 MG CAPSULE PO SCH ×2 (09:41→23:12)
[2019-07-26] MEDS: CHOLECALCIFEROL (VIT D3) 1,000 UNIT (25 MCG) TABLET PO SCH (09:42)
[2019-07-26] MEDS: EZETIMIBE 10 MG TABLET (FP) PO SCH (09:42)
--- NOTE | 2019-07-26 11:03 | PN ---
Progress Note (short form) - Note Progress Note: ID consult dictated 79 yo sister from [facility], admitted with high grade fever at baseline pleasantly demented and conversant, doesn't ambulate, uses a w/c recent uti no recent hospital admissions now with fevers, lethargy-awakens and answers appropriately UTI acute renal failure penicillin allergy- on ceftriaxone switch to cefepime, f/u cultures renal sonogram, r/o obstruction renal consult d/w representive from the [facility] who is at the bedside Problem List - Problems (1) UTI (urinary tract infection) Code(s): N39.0 - URINARY TRACT INFECTION, SITE NOT SPECIFIED Qualifiers: Urinary tract infection type: site unspecified Hematuria presence: without hematuria Qualified Code(s): N39.0 - Urinary tract infection, site not specified (2) Acute renal failure Code(s): N17.9 - ACUTE KIDNEY FAILURE, UNSPECIFIED (3) Penicillin allergy Code(s): Z88.0 - ALLERGY STATUS TO PENICILLIN
--- NOTE | 2019-07-26 13:50 | CONS ---
INFECTIOUS DISEASE CONSULTATION DATE OF CONSULTATION: DATE OF DICTATION: 07/26/2019 HISTORY OF PRESENT ILLNESS: This is a retired sister who is a long-term resident at the [facility]. She has a history of some mild dementia. She is nonambulatory. Has been living in the senior care for several years. No history of any recent hospitalizations. She was apparently well, yesterday morning. Yesterday evening, she was noted to have fever, chills, diaphoresis, and lethargy. She had a fever of 103 and was sent to the ER. In the ER, she had a white count of 14 with a lactate of 3.7, a UA consistent with pyuria. She was admitted, given IV fluids, and started on antibiotics. I am asked to see her for further recommendations. Currently, she is lethargic, but arousable, has no complaints, denies any pain, is resting comfortably. PAST MEDICAL HISTORY: Notable for hypertension, hyperlipidemia, CHF, atrial fibrillation, diabetes, hypothyroidism, gout, Parkinson disease, Alzheimer disease. She has a history of prior C difficile, pituitary adenoma. She has spinal stenosis, GERD, and diverticulosis. SURGICAL HISTORY: Notable for permanent pacemaker placed in 2017 for AV block. ALLERGIES: She is allergic to IBUPROFEN, MOTRIN, and PENICILLIN. SOCIAL HISTORY: There is no history of any substance use. MEDICATIONS: At the senior care include vitamin D, Zetia, Levemir, Januvia, metformin, Lasix, lactobacillus, carbidopa/levodopa, cholestyramine, rivastigmine, and nadolol. REVIEW OF SYSTEMS: Currently, she has no complaints. PHYSICAL EXAMINATION: General: She is sleeping, but arousable. Vital Signs: Her T-maximum is 100.5, current temp is 97.9, pulse of 60, blood pressure 108/61, respiratory rate is 18, she is saturating 97% on room air. HEENT: She is normocephalic. Her eyes are anicteric. Neck: Supple. Lungs: Clear to auscultation. She is lying flat in bed comfortably. Abdomen: Soft. Nontender. Extremities: Without edema. Genitourinary: She has a Price with cloudy urine, which I suspect was placed in the ER. LABORATORIES: Notable for a white count of 14, hemoglobin is 10, platelets are 269. BUN and creatinine were 99 and 4.1, this morning on repeat 93 and 3.8. went from 3.7 to 2.5. Urinalysis has 3+ blood, 3+ leuks, and 313 white cells. Influenza screen and RSV screen are negative. IMAGING: Chest x-ray is without infiltrate. In summary, this is a 79-year-old woman admitted from the senior care with fever and signs and symptoms of sepsis due to UTI. She has a PENICILLIN allergy. Would switch to cefepime for better gram-negative coverage, as she recently had a UTI. Unclear what she received for antibiotics, at that time. Will obtain a renal ultrasound to evaluate for obstruction and will follow up on her cultures. I spoke at length with the customer service representative teller from her [facility] who was at the bedside. FRANCISCO WILLIS M.D. [id number]
[2019-07-26] MEDS ORDERED: CEFEPIME 1 GM/100 ML BAG IVPB ONE (13:55)
[2019-07-26] MEDS: CEFEPIME 1 GM in DEXTROSE 5%-WATER - 50 ML IVPB SCH ×2 (14:03→22:27)
--- NOTE | 2019-07-26 16:37 | EKG ---
Test Reason : Blood Pressure : / mmHG Vent. Rate : 063 BPM Atrial Rate : 063 BPM P-R Int : 194 ms QRS Dur : 162 ms QT Int : 460 ms P-R-T Axes : 048 -83 111 degrees QTc Int : 470 ms Atrial-sensed ventricular-paced rhythm ABNORMAL ECG Confirmed by MD VITALY, OANH ([id number]) on 07/26/2019 4:37:25 PM Referred By: Confirmed By:OANH HAIDER MD
--- NOTE | 2019-07-26 17:33 | CONSULT ---
Consult - text type - Consultation Consultation Note: Renal consult for OMER This is a 79 year old woman with history of Heart block s/p PPM Afib, hypertension, hyperlipidemia, parkinsons dementia, Alzhimers, hx of C.Diff who [place] with [place] and NH and found to have acute renal injury with Cr of 3.8. Pt seen and examined in the ER. Environmental Journalist at the bedside. Pt is groggy and not able to provide any history. Noted to have temp of 103.2 in the ER. She was found to have a UA suggestive of infection. Price inserted in the ER. Pt is wheelchair bound at baseline. PMhx: as above Allergies: As listed in EMR. Family Hx: NC Social Hx: No T/A/D. Home Medications Medication Instructions Recorded Acetaminophen [Tylenol] 650 mg PO Q6H PRN 10/18/16 Cholecalciferol (Vitamin D3) 2,000 unit PO DAILY 10/18/16 [Vitamin D3] Ezetimibe [Zetia] 10 mg PO DAILY 10/18/16 Insulin Aspart [Novolog Flexpen] 4 unit SQ DAILY 10/18/16 Insulin Detemir [Levemir Flextouch] 20 unit SQ HS 10/18/16 Sitagliptin Phosphate [Januvia] 25 mg PO DAILY 10/18/16 metFORMIN HCL [Metformin ER 1,000 mg PO BID 10/18/16 Osmotic] Furosemide [Lasix] 20 mg PO DAILY 11/15/17 Acidoph/L.bulg/Bif.b/S.thermop 1 each PO DAILY 07/26/19 [Keri-Bid Caplet] Bacitracin/Polymyxin Ointment 1 applic TP BID 07/26/19 [Polysporin Ointment -] Carbidopa/Levodopa *Cr* 50/200 1 combo PO BID 07/26/19 [Sinemet *Cr* 50/200 -] Cholestyramine (with Sugar) 4 gm PO DAILY 07/26/19 [Cholestyramine Packet] Nadolol [Corgard -] 20 mg PO DAILY 07/26/19 Rivastigmine Tartrate 3 mg PO BID 07/26/19 [Rivastigmine] Vital Signs Temperature 98 F 07/26/19 16:54 Pulse Rate 66 07/26/19 16:54 Respiratory Rate 18 07/26/19 17:01 Blood Pressure 120/64 07/26/19 16:54 O2 Sat by Pulse Oximetry (%) 100 07/26/19 17:01 NAD Groggy Neck supple, no JVD RRR, no M/R Dec BS, no rales or wheeze soft NT/ND, no rebound or guarding no LE edema, clubbing or cyanosis Cool extremities Price in place CBC, BMP 07/26/19 01:50 07/26/19 04:40 Current Medications Acetaminophen (Tylenol -) 650 mg PO Q6H PRN PRN Reason: FEVER Carbidopa/Levodopa (Sinemet *Cr* 50/200 -) 1 combo PO BID [facility] Last Admin: 07/26/19 09:41 Dose: 1 combo Cholecalciferol (Vitamin D3 -) 2,000 unit PO DAILY [facility] Last Admin: 07/26/19 09:42 Dose: 2,000 unit Cholestyramine Resin (Questran Packet -) 4 gm PO DAILY [facility] Last Admin: 07/26/19 09:41 Dose: 4 gm Ezetimibe (Zetia -) 10 mg PO DAILY [facility] Last Admin: 07/26/19 09:42 Dose: 10 mg Heparin Sodium (Porcine) (Heparin -) 5,000 unit SQ BID [facility] Last Admin: 07/26/19 09:41 Dose: 5,000 unit Sodium Chloride (Normal Saline -) 1,000 mls @ 125 mls/hr IV ASDIR [facility] Last Admin: 07/26/19 08:34 Dose: 125 mls/hr Cefepime HCl 1 gm/ Dextrose 50 mls @ 100 mls/hr IVPB BID [facility]; Protocol Last Admin: 07/26/19 14:03 Dose: 100 mls/hr Insulin Aspart (Novolog Vial Sliding Scale -) 1 vial SQ HS [facility]; Protocol Insulin Aspart (Novolog Vial Sliding Scale -) 0 vial SQ TIDAC [facility]; Protocol Last Admin: 07/26/19 13:51 Dose: Not Given Lactobacillus Acidophilus (Bacid -) 1 tab PO DAILY [facility] Last Admin: 07/26/19 09:41 Dose: 1 tab Rivastigmine Tartrate (Exelon) 3 mg PO BID [facility] Last Admin: 07/26/19 09:41 Dose: 3 mg 79 year old woman with history of Heart block s/p PPM Afib, hypertension, hyperlipidemia, parkinsons dementia, Alzhimers, hx of C.Diff who [place] and found to have acute renal injury with Cr of 3.8. 1. Acute Renal failure 2. Sepsis secondary to Cystitis r/o complicated pylonephritis 3. Unilateral hydronephrosis 4. lactic acidosis 5. Anemia Etiology of OMER likely multifactorial in setting of sepsis and unilateral obstruction no emergent indication for dialysis as this time Renal US noted: Mild left hydronephrosis with non-obstructing stone. Will order non-contract CT of the abdomen to access if there is a more distal urethral obstruction pt will need urology consult Continue IVF resuscitation in setting of OMER and lactic acidosis Continue empiric antibiotics as pre ID Trend H/H, no acute indication for transfusion Thank you Chase Moffett DO
[2019-07-26] MEDS ORDERED: CEFTRIAXONE 1 GM in DEXTROSE 5%-WATER - 50 ML IVPB SCH (22:00)
[2019-07-26] MEDS ORDERED: CEFEPIME HCL 1 GM VIAL (RESTRICTED TO ID) ONE (22:18)
[2019-07-26] MEDS ORDERED: DEXTROSE 5%-WATER - 50 ML IVPB ONE (22:18)
[2019-07-26] MEDS: SODIUM CHLORIDE 1,000 ML IV SCH (22:26)
[2019-07-27] MEDS: SODIUM CHLORIDE 1,000 ML IV SCH (03:20)
[2019-07-27] MEDS ORDERED: PT OWN MED DRAWER 7, Y5N ONE ×2 (06:12→06:41)
[2019-07-27] MEDS ORDERED: INSULIN (NOVOLOG) ASPART 100 UNITS/ML 10ML VIAL ONE ×3 (06:12→11:31)
[2019-07-27] MEDS: INSULIN SLIDING SCALE (NOVOLOG) 1 VIAL SQ SCH ×4 (06:16→21:13)
[2019-07-27 07:21] LABS: BASO % 0.8 % (0-2.0); EOS % 1.5 % (0-4.5); HEMATOCRIT 25.8 % (32.4-45.2); HEMOGLOBIN 8.5 GM/dL (10.7-15.3); LYMPH % 14.4 % (8-40); MCH 30.1 pg (25.7-33.7); MCHC 32.8 g/dl (32.0-36.0); MEAN CELL VOLUME 91.9 fl (80-96); MEAN PLT VOLUME 8.3 fl (7.5-11.1); MONO % 9.2 % (3.8-10.2); NEUT % 74.1 % (42.8-82.8); PLATELET COUNT 211 K/MM3 (134-434); RBC 2.81 M/mm3 (3.60-5.2); RDW 14.2 % (11.6-15.6); WHITE BLOOD COUNT 9.2 K/mm3 (4.0-10.0)
[2019-07-27 08:39] LABS: CALCIUM 8.8 mg/dL (8.5-10.1); CREATININE 3.2 mg/dL (0.55-1.3); MAGNESIUM 2.2 mg/dL (1.8-2.4); PHOSPHOROUS 3.8 mg/dL (2.5-4.9); POTASSIUM 4.6 mmol/L (3.5-5.1)
--- NOTE | 2019-07-27 08:39 | PN ---
Progress Note, Physician Chief Complaint: More awake, alert today. Answeres questions. UA CX GNB-ID to follow. ID and nephrology f/u appreciated. 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 Paroxysmal A.Fib. Pituitary adenoma. DM 2 Hypothyroidism Alzheimer's Parkinson's diseaseHTN, CHF Frequent falls, T11-T12 fracture, spinal stenosis. Diverticulosis. C diff. colitis recurrent - Current Medication List Current Medications: Active Medications Acetaminophen (Tylenol -) 650 mg PO Q6H PRN PRN Reason: FEVER Carbidopa/Levodopa (Sinemet *Cr* 50/200 -) 1 combo PO BID [facility] Last Admin: 07/26/19 23:12 Dose: Not Given Cholecalciferol (Vitamin D3 -) 2,000 unit PO DAILY [facility] Last Admin: 07/26/19 09:42 Dose: 2,000 unit Cholestyramine Resin (Questran Packet -) 4 gm PO DAILY [facility] Last Admin: 07/26/19 09:41 Dose: 4 gm Ezetimibe (Zetia -) 10 mg PO DAILY [facility] Last Admin: 07/26/19 09:42 Dose: 10 mg Heparin Sodium (Porcine) (Heparin -) 5,000 unit SQ BID [facility] Last Admin: 07/26/19 22:27 Dose: 5,000 unit Cefepime HCl 1 gm/ Dextrose 50 mls @ 100 mls/hr IVPB BID [facility]; Protocol Last Admin: 07/26/19 22:27 Dose: 100 mls/hr Sodium Chloride (Normal Saline -) 1,000 mls @ 100 mls/hr IV ASDIR [facility] Last Admin: 07/27/19 03:20 Dose: 100 mls/hr Insulin Aspart (Novolog Vial Sliding Scale -) 1 vial SQ HS [facility]; Protocol Last Admin: 07/26/19 22:31 Dose: Not Given Insulin Aspart (Novolog Vial Sliding Scale -) 0 vial SQ TIDAC [facility]; Protocol Last Admin: 07/27/19 06:16 Dose: Not Given Lactobacillus Acidophilus (Bacid -) 1 tab PO DAILY [facility] Last Admin: 07/26/19 09:41 Dose: 1 tab Rivastigmine Tartrate (Exelon) 3 mg PO BID [facility] Last Admin: 07/26/19 23:12 Dose: Not Given - Objective Vital Signs: Vital Signs Temperature 98.3 F 07/27/19 06:00 Pulse Rate 60 0227/20 06:00 Respiratory Rate 18 07/27/19 06:00 Blood Pressure 137/63 07/27/19 06:00 O2 Sat by Pulse Oximetry (%) 100 07/26/19 21:00 Constitutional: Yes: No Distress Eyes: Yes: Conjunctiva Clear, EOM Intact HENT: Yes: Atraumatic, Normocephalic Neck: Yes: Supple, Thyromegaly. No: Lymphadenopathy Cardiovascular: Yes: Regular Rate and Rhythm, S1, S2. No: Tachycardia, JVD, Rub Respiratory: Yes: Regular, CTA Bilaterally Gastrointestinal: Yes: Normal Bowel Sounds, Soft. No: Abdomen, Obese, Ascites, Palpable Mass, Tenderness, Tenderness, Epigastrium, Tenderness, Rebound, Vomiting ...Rectal Exam: Yes: Deferred Genitourinary: Yes: Price Present Breast(s): Yes: WNL Extremities: No: Amputation, Calf Tenderness, Cold, Cyanosis Edema: No Peripheral Pulses WNL: Yes Integumentary: Yes: WNL Neurological: Yes: Alert, Confusion. No: Oriented, Aphasia, Dysarthria, Lethargy, Seizure ...Motor Strength: WNL Psychiatric: Yes: Alert. No: Oriented, Agitated, Suicidal Ideation Labs: CBC, BMP 07/27/19 05:50 INR, PTT INR 1.06 (0.83-1.09) 07/26/19 01:50 Laboratory Results - last 24 hr 07/26/19 07/26/19 07/26/19 13:05 17:42 22:30 WBC RBC Hgb Hct MCV MCH MCHC RDW Plt Count MPV Absolute Neuts (auto) Neutrophils % Lymphocytes % Monocytes % Eosinophils % Basophils % Nucleated RBC % Sodium Potassium Chloride Carbon Dioxide Anion Gap BUN Creatinine Est GFR (CKD-EPI)AfAm Est GFR (CKD-EPI)NonAf POC Glucometer 199 170 176 Random Glucose Calcium Phosphorus Magnesium 07/27/19 07/27/19 07/27/19 05:50 05:50 06:00 WBC 9.2 RBC 2.81 L Hgb 8.5 L Hct 25.8 L D MCV 91.9 MCH 30.1 MCHC 32.8 RDW 14.2 Plt Count 211 D MPV 8.3 Absolute Neuts (auto) 6.8 Neutrophils % 74.1 Lymphocytes % 14.4 Monocytes % 9.2 Eosinophils % 1.5 D Basophils % 0.8 Nucleated RBC % 0 Sodium 145 Potassium 4.6 Chloride 117 H Carbon Dioxide 18 L Anion Gap 10 BUN 86.0 H Creatinine 3.2 H Est GFR (CKD-EPI)AfAm 15.31 Est GFR (CKD-EPI)NonAf 13.21 POC Glucometer 187 Random Glucose 195 H Calcium 8.8 Phosphorus 3.8 Magnesium 2.2 Problem List - Problems (1) Diabetes Assessment/Plan: Continue BGM IV fluids Novolog sliding scale Code(s): E11.9 - TYPE 2 DIABETES MELLITUS WITHOUT COMPLICATIONS Qualifiers: Diabetes mellitus type: type 2 Diabetes mellitus complication status: without complication (2) Sepsis Assessment/Plan: Sepsis due to UTI Bld cx neg, UA cx -GNB Cefexime BID started by ID Code(s): A41.9 - SEPSIS, UNSPECIFIED ORGANISM Qualifiers: Sepsis type: sepsis due to unspecified organism Severe sepsis acute organ dysfunction type: acute renal failure (3) Toxic metabolic encephalopathy Assessment/Plan: Improved Code(s): G92 - TOXIC ENCEPHALOPATHY (4) Renal failure (ARF), acute on chronic Assessment/Plan: CT scan mild Left hydro with UPJ obstructing stone. Creat 3.2-. ARF . IV fluids Follow lytes, BUN/CR Nephrology Code(s): N17.9 - ACUTE KIDNEY FAILURE, UNSPECIFIED; N18.9 - CHRONIC KIDNEY DISEASE, UNSPECIFIED (5) Acute hyperkalemia Code(s): E87.5 - HYPERKALEMIA
[2019-07-27] MEDS ORDERED: CEFEPIME HCL 1 GM VIAL (RESTRICTED TO ID) ONE ×2 (09:09→20:23)
[2019-07-27] MEDS ORDERED: DEXTROSE 5%-WATER - 50 ML IVPB ONE ×2 (09:09→20:23)
[2019-07-27] MEDS: CEFEPIME 1 GM in DEXTROSE 5%-WATER - 50 ML IVPB SCH ×2 (09:59→21:12)
[2019-07-27] MEDS: LACTOBACILLUS ACIDOPHILUS 1 TABLET PO SCH (10:00)
[2019-07-27] MEDS: CHOLECALCIFEROL (VIT D3) 1,000 UNIT (25 MCG) TABLET PO SCH (10:00)
[2019-07-27] MEDS: HEPARIN NA (PORCINE) 5,000 UNITS/ML 1ML VIAL SQ SCH ×2 (10:00→21:12)
[2019-07-27] MEDS: CHOLESTYRAMINE/SUCROSE 4 GM PACKET PO SCH (10:01)
[2019-07-27] MEDS: EZETIMIBE 10 MG TABLET (FP) PO SCH (10:01)
[2019-07-27] MEDS: RIVASTIGMINE TARTRATE 3 MG CAPSULE PO SCH ×2 (10:02→21:13)
[2019-07-27] MEDS ORDERED: SODIUM CHLORIDE 1,000 ML IV SCH (12:34)
--- NOTE | 2019-07-27 12:34 | PN ---
Progress Note (short form) - Note Progress Note: Renal follow up for OMER Seen and examined at the bedside much more awake and alert today being fed lunch by aide no overnight events she denies any pain, sob, N/V/D, fever or chills making urine CT showed obstructing stone in the ureter Vital Signs Temperature 98.4 F 07/27/19 10:00 Pulse Rate 68 07/27/19 10:00 Respiratory Rate 17 07/27/19 10:00 Blood Pressure 126/69 07/27/19 10:00 O2 Sat by Pulse Oximetry (%) 100 07/27/19 09:00 Intake & Output 07/24/19 07/25/19 07/26/19 07/27/19 23:59 23:59 23:59 23:59 Intake Total 2100 Output Total 720 400 Balance 1380 -400 Weight 62.142 kg NAD awake and alert Neck supple, no JVD RRR, no M/R + rales at lung bases soft NT/ND, no rebound or guarding no LE edema, clubbing or cyanosis Price in place CBC, BMP 07/27/19 05:50 07/27/19 05:50 Current Medications Acetaminophen (Tylenol -) 650 mg PO Q6H PRN PRN Reason: FEVER Carbidopa/Levodopa (Sinemet *Cr* 50/200 -) 1 combo PO BID [facility] Last Admin: 07/27/19 10:01 Dose: 1 combo Cholecalciferol (Vitamin D3 -) 2,000 unit PO DAILY [facility] Last Admin: 07/27/19 10:00 Dose: 2,000 unit Cholestyramine Resin (Questran Packet -) 4 gm PO DAILY [facility] Last Admin: 07/27/19 10:01 Dose: 4 gm Ezetimibe (Zetia -) 10 mg PO DAILY [facility] Last Admin: 07/27/19 10:01 Dose: 10 mg Heparin Sodium (Porcine) (Heparin -) 5,000 unit SQ BID [facility] Last Admin: 07/27/19 10:00 Dose: 5,000 unit Cefepime HCl 1 gm/ Dextrose 50 mls @ 100 mls/hr IVPB BID [facility]; Protocol Last Admin: 07/27/19 09:59 Dose: 100 mls/hr Sodium Chloride (Normal Saline -) 1,000 mls @ 100 mls/hr IV ASDIR [facility] Last Admin: 07/27/19 03:20 Dose: 100 mls/hr Insulin Aspart (Novolog Vial Sliding Scale -) 1 vial SQ HS [facility]; Protocol Last Admin: 07/26/19 22:31 Dose: Not Given Insulin Aspart (Novolog Vial Sliding Scale -) 0 vial SQ TIDAC [facility]; Protocol Last Admin: 07/27/19 12:03 Dose: 3 unit Lactobacillus Acidophilus (Bacid -) 1 tab PO DAILY [facility] Last Admin: 07/27/19 10:00 Dose: 1 tab Rivastigmine Tartrate (Exelon) 3 mg PO BID [facility] Last Admin: 07/27/19 10:02 Dose: 3 mg Tamsulosin HCl (Flomax -) 0.4 mg PO DAILY@0830 [facility] 79 year old woman with history of Heart block s/p PPM Afib, hypertension, hyperlipidemia, parkinsons dementia, Alzhimers, hx of C.Diff who [place] with fever and NH and found to have acute renal injury with Cr of 3.8. 1. Acute Renal failure 2. Sepsis secondary to Cystitis r/o complicated pylonephritis 3. Unilateral hydronephrosis 4. lactic acidosis 5. Anemia Etiology of OMER likely multifactorial in setting of sepsis and unilateral obstruction Renal function improving from admission Renal US noted: Mild left hydronephrosis with non-obstructing stone and CT showed obstructing stone in the ureter urology consulted. will start Flomax 0.4mg to help stone passage. will reduce IVF rate to 50cc per hour given congestion heard on lung examination. Continue antibiotics as per ID Trend H/H, no acute indication for transfusion Thank you Chase Moffett DO
--- NOTE | 2019-07-27 15:38 | PN ---
Progress Note (short form) - Note Progress Note: awake and alert no abdominal pain Vital Signs Period Temp Pulse Resp BP Sys/Doyle Pulse Ox Last 24 Hr 98 F-98.6 F 60-68 17-20 120-137/60-69 100-100 cor-rrr lungs clear abd soft,nt ext no edema +kaye CBC, BMP 07/27/19 05:50 07/27/19 05:50 Microbiology 07/26/19 02:15 Urine - Urine - Catheterized Urine Culture - Preliminary Lactose Fermenting Neg Bacilli 07/26/19 01:50 Blood - Peripheral Venous Blood Culture - Preliminary NO GROWTH OBTAINED AFTER 24 HOURS, INCUBATION TO CONTINUE FOR 4 DAYS. 07/26/19 01:30 Blood - Peripheral Venous Blood Culture - Preliminary NO GROWTH OBTAINED AFTER 24 HOURS, INCUBATION TO CONTINUE FOR 4 DAYS. UTI acute renal failure penicillin allergy- on cefepime hydronephrosis secondary to nephrolithiasis- urology consult pending yobani- secondary to obstruction Problem List - Problems (1) UTI (urinary tract infection) Code(s): N39.0 - URINARY TRACT INFECTION, SITE NOT SPECIFIED Qualifiers: Urinary tract infection type: site unspecified Hematuria presence: without hematuria Qualified Code(s): N39.0 - Urinary tract infection, site not specified (2) Acute renal failure Code(s): N17.9 - ACUTE KIDNEY FAILURE, UNSPECIFIED (3) Penicillin allergy Code(s): Z88.0 - ALLERGY STATUS TO PENICILLIN
--- NOTE | 2019-07-27 17:41 | CON.GU ---
Consult - History of Present Illness History of Present Illness: 79 yo female admitted with UTI. CT with 9mm left upj stone with hydro. No prior h/o nephrolithiasis. 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: Yes: CVA, Parkinson's, Other (Cognitive impairment) Cardio/Vascular: Yes: HTN, Hyperlipdemia, Other (high degree heart block s/p PPM 07/2016) Gastrointestinal: Yes: GERD Endocrine: Yes: Diabetes Mellitus, Other (pituitary macroadenoma) - Past Surgical History Past Surgical History: Yes: Permanent Pacemaker - Alcohol/Substance Use Hx Alcohol Use: No - Smoking History Smoking history: Never smoked Have you smoked in the past 12 months: No - Social History Usual Living Arrangement: Fdc ADL: Support Services History of Recent Travel: No Home Medications - Allergies Allergies/Adverse Reactions: Allergies Allergy/AdvReac Type Severity Reaction Status Date / Time ibuprofen Allergy Verified 07/26/19 01:39 morphine Allergy Verified 07/26/19 01:39 Penicillins Allergy Verified 07/26/19 01:39 - Home Medications Home Medications: Ambulatory Orders Acetaminophen [Tylenol] 650 mg PO Q6H PRN 10/18/16 Cholecalciferol (Vitamin D3) [Vitamin D3] 2,000 unit PO DAILY 10/18/16 Ezetimibe [Zetia] 10 mg PO DAILY 10/18/16 Insulin Aspart [Novolog Flexpen] 4 unit SQ DAILY 10/18/16 Insulin Detemir [Levemir Flextouch] 20 unit SQ HS 10/18/16 Sitagliptin Phosphate [Januvia] 25 mg PO DAILY 10/18/16 metFORMIN HCL [Metformin ER Osmotic] 1,000 mg PO BID 10/18/16 Furosemide [Lasix] 20 mg PO DAILY 11/15/17 Acidoph/L.bulg/Bif.b/S.thermop [Keri-Bid Caplet] 1 each PO DAILY 07/26/19 Bacitracin/Polymyxin Ointment [Polysporin Ointment -] 1 applic TP BID 07/26/19 Carbidopa/Levodopa *Cr* 50/200 [Sinemet *Cr* 50/200 -] 1 combo PO BID 07/26/19 Cholestyramine (with Sugar) [Cholestyramine Packet] 4 gm PO DAILY 07/26/19 Nadolol [Corgard -] 20 mg PO DAILY 07/26/19 Rivastigmine Tartrate [Rivastigmine] 3 mg PO BID 07/26/19 Physical Exam- Vital Signs: Vital Signs Temperature 98.2 F 07/27/19 14:01 Pulse Rate 66 07/27/19 14:01 Respiratory Rate 07/27/19 14:01 Blood Pressure 124/60 07/27/19 14:01 O2 Sat by Pulse Oximetry (%) 100 07/27/19 09:00 Labs: CBC, BMP 07/27/19 05:50 07/27/19 05:50 Imaging - Results Cat Scan: Report Reviewed Problem List - Problems (1) Hydronephrosis, left Assessment/Plan: in light of concurrent uti, will plan for cysto/stent placement in am Code(s): N13.30 - UNSPECIFIED HYDRONEPHROSIS
[2019-07-28 06:22] LABS: EOS % 2.3 % (0-4.5); HEMATOCRIT 25.4 % (32.4-45.2); HEMOGLOBIN 8.5 GM/dL (10.7-15.3); LYMPH % 16.2 % (8-40); MCH 30.3 pg (25.7-33.7); MCHC 33.3 g/dl (32.0-36.0); MEAN CELL VOLUME 91.1 fl (80-96); MONO % 8.5 % (3.8-10.2); PLATELET COUNT 258 K/MM3 (134-434); RBC 2.79 M/mm3 (3.60-5.2); RDW 13.8 % (11.6-15.6); WHITE BLOOD COUNT 8.6 K/mm3 (4.0-10.0)
[2019-07-28] MEDS: INSULIN SLIDING SCALE (NOVOLOG) 1 VIAL SQ SCH ×4 (06:34→22:00)
[2019-07-28 06:40] LABS: BILIRUBIN,TOTAL 0.1 mg/dL (0.2-1); BLOOD UREA NITROGEN 75.1 mg/dL (7-18); CALCIUM 8.8 mg/dL (8.5-10.1); CREATININE 2.7 mg/dL (0.55-1.3); MAGNESIUM 1.9 mg/dL (1.8-2.4); PHOSPHOROUS 2.9 mg/dL (2.5-4.9); POTASSIUM 4.3 mmol/L (3.5-5.1); TOT PROT 5.8 g/dl (6.4-8.2)
[2019-07-28] MEDS ORDERED: CEFEPIME HCL 1 GM VIAL (RESTRICTED TO ID) ONE ×2 (07:59→21:10)
[2019-07-28] MEDS ORDERED: DEXTROSE 5%-WATER - 50 ML IVPB ONE ×2 (07:59→21:10)
--- NOTE | 2019-07-28 08:41 | PN ---
Progress Note, Physician Chief Complaint: Awake, alert, confused. Dr Alanis consut appreciated, stent placement is planned. 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 Paroxysmal A.Fib. Pituitary adenoma. DM 2 Hypothyroidism Alzheimer's Parkinson's diseaseHTN, CHF Frequent falls, T11-T12 fracture, spinal stenosis. Diverticulosis. C diff. colitis recurrent - Current Medication List Current Medications: Active Medications Acetaminophen (Tylenol -) 650 mg PO Q6H PRN PRN Reason: FEVER Last Admin: 07/28/19 07:54 Dose: 650 mg Carbidopa/Levodopa (Sinemet *Cr* 50/200 -) 1 combo PO BID [facility] Last Admin: 07/27/19 21:13 Dose: 1 combo Cholecalciferol (Vitamin D3 -) 2,000 unit PO DAILY [facility] Last Admin: 07/27/19 10:00 Dose: 2,000 unit Cholestyramine Resin (Questran Packet -) 4 gm PO DAILY [facility] Last Admin: 07/27/19 10:01 Dose: 4 gm Ezetimibe (Zetia -) 10 mg PO DAILY [facility] Last Admin: 07/27/19 10:01 Dose: 10 mg Heparin Sodium (Porcine) (Heparin -) 5,000 unit SQ BID [facility] Last Admin: 07/27/19 21:12 Dose: 5,000 unit Cefepime HCl 1 gm/ Dextrose 50 mls @ 100 mls/hr IVPB BID [facility]; Protocol Last Admin: 07/27/19 21:12 Dose: 100 mls/hr Sodium Chloride (Normal Saline -) 1,000 mls @ 50 mls/hr IV ASDIR [facility] Last Admin: 07/27/19 12:55 Dose: 50 mls/hr Insulin Aspart (Novolog Vial Sliding Scale -) 1 vial SQ HS [facility]; Protocol Last Admin: 07/27/19 21:13 Dose: Not Given Insulin Aspart (Novolog Vial Sliding Scale -) 0 vial SQ TIDAC [facility]; Protocol Last Admin: 07/28/19 06:34 Dose: Not Given Lactobacillus Acidophilus (Bacid -) 1 tab PO DAILY [facility] Last Admin: 07/27/19 10:00 Dose: 1 tab Rivastigmine Tartrate (Exelon) 3 mg PO BID [facility] Last Admin: 07/27/19 21:13 Dose: 3 mg Tamsulosin HCl (Flomax -) 0.4 mg PO DAILY@0830 [facility] - Objective Vital Signs: Vital Signs Temperature 98.4 F 07/28/19 06:00 Pulse Rate 64 07/28/19 06:00 Respiratory Rate 20 07/28/19 06:00 Blood Pressure 126/68 07/28/19 06:00 O2 Sat by Pulse Oximetry (%) 100 07/27/19 21:00 Constitutional: Yes: No Distress, Anxious Eyes: Yes: Conjunctiva Clear, EOM Intact HENT: Yes: Atraumatic, Normocephalic Neck: Yes: Supple, Trachea Midline Cardiovascular: Yes: Regular Rate and Rhythm, S1, S2 Respiratory: Yes: Regular, Rales (Few B/B) Gastrointestinal: Yes: Normal Bowel Sounds, Soft. No: Distention, Palpable Mass , Pulsatile Mass, Splenomegaly, Tenderness, Tenderness, Epigastrium, Tenderness , Rebound, Vomiting ...Rectal Exam: Yes: Deferred Genitourinary: Yes: Price Present Musculoskeletal: Yes: Muscle Weakness Extremities: No: Calf Tenderness, Cold, Cyanosis Edema: No Peripheral Pulses WNL: Yes Integumentary: Yes: Pressure Ulcer (Stage 2), Other Neurological: Yes: Alert. No: Oriented, Aphasia, Dysarthria ...Motor Strength: WNL Psychiatric: Yes: Alert. No: Oriented, Agitated, Suicidal Ideation Labs: CBC, BMP 07/28/19 05:55 07/28/19 05:55 INR, PTT INR 1.06 (0.83-1.09) 07/26/19 01:50 Laboratory Results - last 24 hr 07/27/19 07/27/19 07/27/19 05:50 11:22 16:22 WBC RBC Hgb Hct MCV MCH MCHC RDW Plt Count MPV Absolute Neuts (auto) Neutrophils % Lymphocytes % Monocytes % Eosinophils % Basophils % Nucleated RBC % Sodium 145 Potassium 4.6 Chloride 117 H Carbon Dioxide 18 L Anion Gap 10 BUN 86.0 H Creatinine 3.2 H Est GFR (CKD-EPI)AfAm 15.31 Est GFR (CKD-EPI)NonAf 13.21 POC Glucometer 246 176 Random Glucose 195 H Calcium 8.8 Phosphorus 3.8 Magnesium 2.2 Total Bilirubin AST ALT Alkaline Phosphatase Total Protein Albumin 07/27/19 07/28/19 07/28/19 21:11 05:55 05:55 WBC 8.6 RBC 2.79 L Hgb 8.5 L Hct 25.4 L MCV 91.1 MCH 30.3 MCHC 33.3 RDW 13.8 Plt Count 258 D MPV 8.0 Absolute Neuts (auto) 6.2 Neutrophils % 72.0 Lymphocytes % 16.2 Monocytes % 8.5 Eosinophils % 2.3 Basophils % 1.0 Nucleated RBC % 0 Sodium 146 H Potassium 4.3 Chloride 118 H Carbon Dioxide 21 Anion Gap 6 L BUN 75.1 H Creatinine 2.7 H Est GFR (CKD-EPI)AfAm 18.81 Est GFR (CKD-EPI)NonAf 16.23 POC Glucometer 194 Random Glucose 241 H Calcium 8.8 Phosphorus 2.9 Magnesium 1.9 Total Bilirubin 0.1 L AST 7 L ALT 6 L Alkaline Phosphatase 63 Total Protein 5.8 L Albumin 2.0 L 07/28/19 06:31 WBC RBC Hgb Hct MCV MCH MCHC RDW Plt Count MPV Absolute Neuts (auto) Neutrophils % Lymphocytes % Monocytes % Eosinophils % Basophils % Nucleated RBC % Sodium Potassium Chloride Carbon Dioxide Anion Gap BUN Creatinine Est GFR (CKD-EPI)AfAm Est GFR (CKD-EPI)NonAf POC Glucometer 207 Random Glucose Calcium Phosphorus Magnesium Total Bilirubin AST ALT Alkaline Phosphatase Total Protein Albumin Problem List - Problems (1) Diabetes Assessment/Plan: Continue BGM IV fluids Novolog sliding scale Code(s): E11.9 - TYPE 2 DIABETES MELLITUS WITHOUT COMPLICATIONS Qualifiers: Diabetes mellitus type: type 2 Diabetes mellitus complication status: without complication (2) Sepsis Assessment/Plan: Sepsis due to UTI Bld cx neg, UA cx -LFGNB Cefexime BID started by ID Code(s): A41.9 - SEPSIS, UNSPECIFIED ORGANISM Qualifiers: Sepsis type: sepsis due to unspecified organism Severe sepsis acute organ dysfunction type: acute renal failure (3) Renal failure (ARF), acute on chronic Assessment/Plan: CT scan mild Left hydro with UPJ obstructing stone. Creat 2.7-. Cysto/Ureteral stent . IV fluids increase to 75 cc/hr-LR due to NPO pre-op, hypernatremia Follow lytes, BUN/CR Nephrology, urology f/u Code(s): N17.9 - ACUTE KIDNEY FAILURE, UNSPECIFIED; N18.9 - CHRONIC KIDNEY DISEASE, UNSPECIFIED
[2019-07-28] MEDS ORDERED: LACTATED RINGERS SOLUTION 1,000 ML/1,000 ML INFUS.BAG IV SCH (08:45)
[2019-07-28] MEDS: CEFEPIME 1 GM in DEXTROSE 5%-WATER - 50 ML IVPB SCH ×2 (09:34→21:44)
[2019-07-28] MEDS ORDERED: PT OWN MED DRAWER 7, Y5N ONE (09:43)
[2019-07-28] MEDS ORDERED: TAMSULOSIN HCL 0.4 MG CAP PO SCH (12:24)
--- NOTE | 2019-07-28 12:25 | PN ---
Progress Note (short form) - Note Progress Note: Renal follow up for OMER Seen and examined at the bedside no acute complaints, feels thirsty no overnight events she denies any pain, sob, N/V/D, fever or chills making urine Vital Signs Temperature 98.4 F 07/28/19 06:00 Pulse Rate 64 07/28/19 06:00 Respiratory Rate 20 07/28/19 06:00 Blood Pressure 126/68 07/28/19 06:00 O2 Sat by Pulse Oximetry (%) 100 07/27/19 21:00 Intake & Output 07/25/19 07/26/19 07/27/19 07/28/19 23:59 23:59 23:59 23:59 Intake Total 2100 1700 Output Total 720 2900 900 Balance 1380 -1200 -900 Weight 62.142 kg NAD awake and alert Neck supple, no JVD RRR, no M/R + rales at lung bases soft NT/ND, no rebound or guarding no LE edema, clubbing or cyanosis Price in place CBC, BMP 07/28/19 05:55 07/28/19 05:55 Current Medications Acetaminophen (Tylenol -) 650 mg PO Q6H PRN PRN Reason: FEVER Last Admin: 07/28/19 07:54 Dose: 650 mg Carbidopa/Levodopa (Sinemet *Cr* 50/200 -) 1 combo PO BID [facility] Last Admin: 07/27/19 21:13 Dose: 1 combo Cholecalciferol (Vitamin D3 -) 2,000 unit PO DAILY [facility] Last Admin: 07/27/19 10:00 Dose: 2,000 unit Cholestyramine Resin (Questran Packet -) 4 gm PO DAILY [facility] Last Admin: 07/27/19 10:01 Dose: 4 gm Ezetimibe (Zetia -) 10 mg PO DAILY [facility] Last Admin: 07/27/19 10:01 Dose: 10 mg Heparin Sodium (Porcine) (Heparin -) 5,000 unit SQ BID [facility] Last Admin: 07/27/19 21:12 Dose: 5,000 unit Cefepime HCl 1 gm/ Dextrose 50 mls @ 100 mls/hr IVPB BID [facility]; Protocol Last Admin: 07/28/19 09:34 Dose: 100 mls/hr Lactated Ringer's (Lactated Ringers Solution) 1,000 ml in 1,000 mls @ 75 mls/ hr IV ASDIR [facility] Last Admin: 07/28/19 08:59 Dose: 75 mls/hr Insulin Aspart (Novolog Vial Sliding Scale -) 1 vial SQ HS [facility]; Protocol Last Admin: 07/27/19 21:13 Dose: Not Given Insulin Aspart (Novolog Vial Sliding Scale -) 0 vial SQ TIDAC [facility]; Protocol Last Admin: 07/28/19 06:34 Dose: Not Given Lactobacillus Acidophilus (Bacid -) 1 tab PO DAILY [facility] Last Admin: 07/27/19 10:00 Dose: 1 tab Rivastigmine Tartrate (Exelon) 3 mg PO BID [facility] Last Admin: 07/27/19 21:13 Dose: 3 mg Tamsulosin HCl (Flomax -) 0.4 mg PO DAILY@0830 [facility] 79 year old woman with history of Heart block s/p PPM Afib, hypertension, hyperlipidemia, parkinsons dementia, Alzhimers, hx of C.Diff who presented from [place] with fever and NH and found to have acute renal injury with Cr of 3.8. 1. Acute Renal failure 2. Sepsis secondary to Cystitis r/o complicated pylonephritis 3. Unilateral hydronephrosis 4. lactic acidosis 5. Anemia Etiology of OMER likely multifactorial in setting of sepsis and unilateral obstruction Renal function improving Renal US noted: Mild left hydronephrosis with non-obstructing stone and CT showed obstructing stone in the ureter urology consulted to have cysto and possible stent placement today Continue Flomax 0.4mg to help stone passage. Continue antibiotics as per ID Trend H/H, no acute indication for transfusion Thank you Chase Moffett DO
[2019-07-28] MEDS: RIVASTIGMINE TARTRATE 3 MG CAPSULE PO SCH ×2 (14:45→21:44)
[2019-07-28] MEDS: LACTOBACILLUS ACIDOPHILUS 1 TABLET PO SCH (14:45)
[2019-07-28] MEDS: CHOLESTYRAMINE/SUCROSE 4 GM PACKET PO SCH (14:46)
[2019-07-28] MEDS: HEPARIN NA (PORCINE) 5,000 UNITS/ML 1ML VIAL SQ SCH ×2 (14:46→21:44)
[2019-07-28] MEDS: CHOLECALCIFEROL (VIT D3) 1,000 UNIT (25 MCG) TABLET PO SCH (14:46)
[2019-07-28] MEDS: EZETIMIBE 10 MG TABLET (FP) PO SCH (14:47)
[2019-07-28] MEDS ORDERED: PROPOFOL 20 ML ONE (16:04)
--- NOTE | 2019-07-28 16:05 | PN ---
Progress Note (short form) - Note Progress Note: awake and alert no abdominal pain awaiting cysto and stent today Vital Signs Period Temp Pulse Resp BP Sys/Doyle Pulse Ox Last 24 Hr 97.7 F-98.4 F 61-68 18-20 126-154/67-78 97-100 cor-rrr lungs clear abd soft,nt ext no edema CBC, BMP 07/28/19 05:55 07/28/19 05:55 Microbiology 07/26/19 02:15 Urine - Urine - Catheterized Urine Culture - Final Escherichia Coli 07/26/19 01:50 Blood - Peripheral Venous Blood Culture - Preliminary NO GROWTH OBTAINED AFTER 48 HOURS, INCUBATION TO CONTINUE FOR 3 DAYS. 07/26/19 01:30 Blood - Peripheral Venous Blood Culture - Preliminary NO GROWTH OBTAINED AFTER 48 HOURS, INCUBATION TO CONTINUE FOR 3 DAYS. a/p [id number] to ceftriaxone acute renal failure-improving penicillin allergy- hydronephrosis secondary to nephrolithiasis- for cystoscopy and stent today yobani- secondary to obstruction Problem List - Problems (1) UTI (urinary tract infection) Code(s): N39.0 - URINARY TRACT INFECTION, SITE NOT SPECIFIED Qualifiers: Urinary tract infection type: site unspecified Hematuria presence: without hematuria Qualified Code(s): N39.0 - Urinary tract infection, site not specified (2) Acute renal failure Code(s): N17.9 - ACUTE KIDNEY FAILURE, UNSPECIFIED (3) Penicillin allergy Code(s): Z88.0 - ALLERGY STATUS TO PENICILLIN
[2019-07-28] MEDS ORDERED: ACETAMINOPHEN 1000 MG/100 ML VIAL (NON FORMULARY) IVPB ONE (16:10)
[2019-07-28] MEDS ORDERED: LACTATED RINGERS SOLUTION 1,000 ML IV SCH (16:15)
[2019-07-28] MEDS ORDERED: PROMETHAZINE HCL 25 MG/1 ML VIAL IVPUSH PRN (16:15)
[2019-07-28] MEDS ORDERED: ONDANSETRON 4 MG/2 ML VIAL IVPUSH PRN (16:15)
[2019-07-28 16:42] VITALS: BMI 23.5
--- NOTE | 2019-07-28 17:00 | OP ---
Operative Note - Note: Operative Date: 07/28/19 Pre-Operative Diagnosis: left hydro, left UPJ stone Operation: left ureteral stent placement Post-Operative Diagnosis: Same as Pre-op Surgeon: Rommel Lane Anesthesia: General Drains & Tubes with Location: left ureteral stent, 6x 24. kaye cath 16 fr Operative Report Dictated: Yes
[2019-07-28] MEDS ORDERED: ACETAMINOPHEN 325 MG TABLET (FP) PO PRN (17:26)
[2019-07-28] MEDS ORDERED: ACETAMINOPHEN INJECTION 100 ML IVPB ONE (17:28)
--- NOTE | 2019-07-28 17:48 | OP ---
DATE OF OPERATION: 07/28/2019 PREOPERATIVE DIAGNOSIS: Left ureteropelvic junction stone, left hydronephrosis and urinary tract infection. POSTOPERATIVE DIAGNOSIS: Left ureteropelvic junction stone, left hydronephrosis and urinary tract infection. PROCEDURE: Cystoscopy, left retrograde pyelogram, left ureteral stone placement. SURGEON: Rommel Lane MD. ANESTHESIA: General. ANESTHESIOLOGIST: Carlos Alberto Trent MD. FINDINGS: Obstruction on the left ureteropelvic junction. DRAINS: A 6 x 24 Double J ureteral stent and Price catheter. PREOPERATIVE INDICATION: The patient is a 79-year-old female who comes in with UTI, left flank pain. CT scan reveals a 9-mm UPJ stone on the left with hydronephrosis. She comes to the OR for stent placement. DESCRIPTION OF PROCEDURE: The patient was brought to the OR, placed on the table in the supine position. Given general anesthesia and IV antibiotics and placed in the modified lithotomy position. The groin was prepped and draped sterilely. Cystoscopy was performed. The bladder itself was unremarkable. The left UO was visualized. A wire and an open-end catheter were placed into the left ureter. Retrograde pyelogram revealed obstruction at the UPJ. A Sensor wire was used to traverse the obstruction, and a 6 x 24 Double J ureteral stent was placed under fluoroscopic guidance in direct vision. One loop was seen in the upper pole of the kidney, one loop in the bladder. A Price catheter was placed, and the patient was woken up. Crissy [id number]
[2019-07-28] MEDS: LACTATED RINGERS SOLUTION 1,000 ML/1,000 ML INFUS.BAG IV SCH (18:18)
[2019-07-28] MEDS: amLODIPine BESYLATE 2.5 MG TABLET (FP) PO SCH (21:44)
[2019-07-29] MEDS: INSULIN SLIDING SCALE (NOVOLOG) 1 VIAL SQ SCH ×4 (06:13→22:51)
[2019-07-29] MEDS ORDERED: CEFEPIME HCL 1 GM VIAL (RESTRICTED TO ID) ONE ×2 (06:40→21:26)
[2019-07-29 07:34] LABS: BASO % 1.1 % (0-2.0); EOS % 2.2 % (0-4.5); HEMATOCRIT 24.4 % (32.4-45.2); LYMPH % 18.4 % (8-40); MCH 30.2 pg (25.7-33.7); MCHC 32.9 g/dl (32.0-36.0); MEAN CELL VOLUME 91.9 fl (80-96); MEAN PLT VOLUME 7.9 fl (7.5-11.1); NEUT % 70.3 % (42.8-82.8); PLATELET COUNT 249 K/MM3 (134-434); RBC 2.66 M/mm3 (3.60-5.2); WHITE BLOOD COUNT 7.1 K/mm3 (4.0-10.0)
[2019-07-29 08:20] LABS: ALBUMIN 2.1 g/dl (3.4-5.0); BILIRUBIN,TOTAL 0.3 mg/dL (0.2-1); BLOOD UREA NITROGEN 55.2 mg/dL (7-18); CALCIUM 8.9 mg/dL (8.5-10.1); CREATININE 2.3 mg/dL (0.55-1.3); MAGNESIUM 1.7 mg/dL (1.8-2.4); PHOSPHOROUS 2.9 mg/dL (2.5-4.9); POTASSIUM 3.9 mmol/L (3.5-5.1); TOT PROT 5.7 g/dl (6.4-8.2)
[2019-07-29] MEDS ORDERED: PT OWN MED DRAWER 7, Y5N ONE ×3 (09:56→21:26)
[2019-07-29] MEDS: LACTOBACILLUS ACIDOPHILUS 1 TABLET PO SCH (10:10)
[2019-07-29] MEDS: TAMSULOSIN HCL 0.4 MG CAP PO SCH (10:10)
[2019-07-29] MEDS: RIVASTIGMINE TARTRATE 3 MG CAPSULE PO SCH ×2 (10:11→22:45)
[2019-07-29] MEDS: HEPARIN NA (PORCINE) 5,000 UNITS/ML 1ML VIAL SQ SCH ×2 (10:11→22:41)
[2019-07-29] MEDS: amLODIPine BESYLATE 2.5 MG TABLET (FP) PO SCH (10:12)
[2019-07-29] MEDS: CHOLESTYRAMINE/SUCROSE 4 GM PACKET PO SCH (10:12)
[2019-07-29] MEDS: EZETIMIBE 10 MG TABLET (FP) PO SCH (10:13)
[2019-07-29] MEDS: CHOLECALCIFEROL (VIT D3) 1,000 UNIT (25 MCG) TABLET PO SCH (10:13)
--- NOTE | 2019-07-29 10:25 | PN ---
Progress Note, Physician Chief Complaint: Feeling much better today. 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 Paroxysmal A.Fib. Pituitary adenoma. DM 2 Hypothyroidism Alzheimer's Parkinson's diseaseHTN, CHF Frequent falls, T11-T12 fracture, spinal stenosis. Diverticulosis. C diff. colitis recurrent - Current Medication List Current Medications: Active Medications Acetaminophen (Tylenol -) 650 mg PO Q6H PRN PRN Reason: FEVER Amlodipine Besylate (Norvasc -) 2.5 mg PO DAILY [facility] Last Admin: 07/28/19 21:44 Dose: 2.5 mg Carbidopa/Levodopa (Sinemet *Cr* 50/200 -) 1 combo PO BID [facility] Last Admin: 07/28/19 21:44 Dose: 1 combo Cholecalciferol (Vitamin D3 -) 2,000 unit PO DAILY [facility] Cholestyramine Resin (Questran Packet -) 4 gm PO DAILY [facility] Ezetimibe (Zetia -) 10 mg PO DAILY [facility] Heparin Sodium (Porcine) (Heparin -) 5,000 unit SQ BID [facility] Last Admin: 07/28/19 21:44 Dose: 5,000 unit Cefepime HCl 1 gm/ Dextrose 50 mls @ 100 mls/hr IVPB BID [facility]; Protocol Last Admin: 07/28/19 21:44 Dose: 100 mls/hr Lactated Ringer's (Lactated Ringers Solution) 1,000 ml in 1,000 mls @ 75 mls/hr IV ASDIR [facility] Last Admin: 07/28/19 18:18 Dose: 75 mls/hr Insulin Aspart (Novolog Vial Sliding Scale -) 1 vial SQ HS [facility]; Protocol Last Admin: 07/28/19 22:00 Dose: Not Given Insulin Aspart (Novolog Vial Sliding Scale -) 1 vial SQ TIDAC [facility]; Protocol Last Admin: 07/29/19 06:13 Dose: 3 units Lactobacillus Acidophilus (Bacid -) 1 tab PO DAILY [facility] Nadolol (Corgard -) 20 mg PO DAILY [facility] Ondansetron HCl (Zofran Injection) 4 mg IVPUSH Q6H PRN PRN Reason: NAUSEA AND/OR VOMITING Promethazine HCl (Phenergan Injection -) 12.5 mg IVPUSH Q6H PRN PRN Reason: NAUSEA-FOR RESCUE AFTER 15 MIN Rivastigmine Tartrate (Exelon) 3 mg PO BID [facility] Last Admin: 07/28/19 21:44 Dose: 3 mg Tamsulosin HCl (Flomax -) 0.4 mg PO DAILY@0830 [facility] - Objective Vital Signs: Vital Signs Temperature 98 F 07/29/19 05:52 Pulse Rate 66 07/29/19 05:52 Respiratory Rate 18 07/29/19 05:52 Blood Pressure 146/77 07/29/19 05:52 O2 Sat by Pulse Oximetry (%) 98 07/28/19 21:00 Constitutional: Yes: No Distress, Calm Eyes: Yes: Conjunctiva Clear, EOM Intact HENT: Yes: Atraumatic, Normocephalic. No: Drooling Neck: Yes: Supple, Trachea Midline Cardiovascular: Yes: Regular Rate and Rhythm, S1, S2. No: Bradycardia, Tachycardia Respiratory: Yes: Regular, CTA Bilaterally. No: Accessory Muscle Use Gastrointestinal: Yes: Normal Bowel Sounds, Soft. No: Abdomen, Obese, Ascites, Palpable Mass, Tenderness, Rebound, Vomiting ...Rectal Exam: Yes: Deferred Genitourinary: Yes: Price Present. No: Anuria, Bladder Distention, CVA Tenderness - Left, CVA Tenderness - Right Breast(s): Yes: WNL Musculoskeletal: Yes: Muscle Weakness Extremities: Yes: WNL Edema: No Peripheral Pulses WNL: Yes Neurological: Yes: Alert, Oriented (X2). No: Aphasia ...Motor Strength: WNL Psychiatric: Yes: WNL Labs: CBC, BMP 07/29/19 07:05 07/29/19 07:05 INR, PTT INR 1.06 (0.83-1.09) 07/26/19 01:50 Problem List - Problems (1) Diabetes Assessment/Plan: Continue BGM IV fluids Novolog sliding scale Code(s): E11.9 - TYPE 2 DIABETES MELLITUS WITHOUT COMPLICATIONS Qualifiers: Diabetes mellitus type: type 2 Diabetes mellitus complication status: without complication (2) Sepsis Assessment/Plan: Sepsis due to UTI Bld cx neg, UA cx -E.Coli Ceftriaxone IV All PCN Code(s): A41.9 - SEPSIS, UNSPECIFIED ORGANISM Qualifiers: Sepsis type: sepsis due to unspecified organism Severe sepsis acute organ dysfunction type: acute renal failure (3) Renal failure (ARF), acute on chronic Assessment/Plan: CT scan mild Left hydro with UPJ obstructing stone. Creat 2.3-. left Ureteral stent-placed, Price . Follow lytes, BUN/CR Nephrology, urology f/u Code(s): N17.9 - ACUTE KIDNEY FAILURE, UNSPECIFIED; N18.9 - CHRONIC KIDNEY DISEASE, UNSPECIFIED
[2019-07-29] MEDS: CEFEPIME 1 GM in DEXTROSE 5%-WATER - 50 ML IVPB SCH ×2 (11:00→22:41)
--- NOTE | 2019-07-29 13:31 | PN ---
Progress Note (short form) - Note Progress Note: Renal follow up for OMER Seen and examined at the bedside no acute complaints no overnight events she denies any pain, sob, N/V/D, fever or chills making urine Vital Signs Temperature 98 F 07/29/19 05:52 Pulse Rate 66 07/29/19 05:52 Respiratory Rate 18 07/29/19 05:52 Blood Pressure 146/77 07/29/19 05:52 O2 Sat by Pulse Oximetry (%) 98 07/28/19 21:00 Intake & Output 07/26/19 07/27/19 07/28/19 07/29/19 23:59 23:59 23:59 23:59 Intake Total 2100 1700 1350 300 Output Total 720 2900 1600 600 Balance 1380 -1200 -250 -300 Weight 62.142 kg 62.142 kg NAD awake and alert Neck supple, no JVD RRR, no M/R dec bs, no rales soft NT/ND, no rebound or guarding no LE edema, clubbing or cyanosis CBC, BMP 07/29/19 07:05 07/29/19 07:05 Current Medications Acetaminophen (Tylenol -) 650 mg PO Q6H PRN PRN Reason: FEVER Amlodipine Besylate (Norvasc -) 2.5 mg PO DAILY [facility] Last Admin: 07/28/19 21:44 Dose: 2.5 mg Carbidopa/Levodopa (Sinemet *Cr* 50/200 -) 1 combo PO BID [facility] Last Admin: 07/28/19 21:44 Dose: 1 combo Cholecalciferol (Vitamin D3 -) 2,000 unit PO DAILY [facility] Cholestyramine Resin (Questran Packet -) 4 gm PO DAILY [facility] Ezetimibe (Zetia -) 10 mg PO DAILY [facility] Heparin Sodium (Porcine) (Heparin -) 5,000 unit SQ BID [facility] Last Admin: 07/28/19 21:44 Dose: 5,000 unit Cefepime HCl 1 gm/ Dextrose 50 mls @ 100 mls/hr IVPB BID [facility]; Protocol Last Admin: 07/28/19 21:44 Dose: 100 mls/hr Lactated Ringer's (Lactated Ringers Solution) 1,000 ml in 1,000 mls @ 75 mls/ hr IV ASDIR [facility] Last Admin: 07/28/19 18:18 Dose: 75 mls/hr Insulin Aspart (Novolog Vial Sliding Scale -) 1 vial SQ HS [facility]; Protocol Last Admin: 07/28/19 22:00 Dose: Not Given Insulin Aspart (Novolog Vial Sliding Scale -) 1 vial SQ TIDAC [facility]; Protocol Last Admin: 07/29/19 06:13 Dose: 3 units Lactobacillus Acidophilus (Bacid -) 1 tab PO DAILY [facility] Magnesium Sulfate (Magnesium Sulfate) 1 gm IVPB ONCE ONE Stop: 07/29/19 13:30 Nadolol (Corgard -) 20 mg PO DAILY [facility] Ondansetron HCl (Zofran Injection) 4 mg IVPUSH Q6H PRN PRN Reason: NAUSEA AND/OR VOMITING Promethazine HCl (Phenergan Injection -) 12.5 mg IVPUSH Q6H PRN PRN Reason: NAUSEA-FOR RESCUE AFTER 15 MIN Rivastigmine Tartrate (Exelon) 3 mg PO BID [facility] Last Admin: 07/28/19 21:44 Dose: 3 mg Tamsulosin HCl (Flomax -) 0.4 mg PO DAILY@0830 [facility] 79 year old woman with history of Heart block s/p PPM Afib, hypertension, hyperlipidemia, parkinsons dementia, Alzhimers, hx of C.Diff who [place] with fever and NH and found to have acute renal injury with Cr of 3.8. 1. Acute Renal failure 2. Sepsis secondary to Cystitis r/o complicated pylonephritis 3. Unilateral hydronephrosis 4. lactic acidosis 5. Anemia Etiology of OMER likely multifactorial in setting of sepsis and unilateral obstruction Renal function continues to improve can consider d/c IVF in 24 hours if oral intake is good s/p cysto and stent placement Continue Flomax 0.4mg Continue antibiotics as per ID Trend H/H, no acute indication for transfusion Thank you Chase Moffett DO
[2019-07-29] MEDS ORDERED: MAGNESIUM SULF 50% (8.12 MEQ/2 ML-1 GM VIAL) IVPB ONE (13:45)
--- NOTE | 2019-07-29 20:22 | PN ---
Progress Note, Physician History of Present Illness: AWAKE, ALERT IN BED S/P CYSTO/ STENT NO C/O PAIN TEMPS DOWN NO FEVER/CHILLS - Current Medication List Current Medications: Active Medications Acetaminophen (Tylenol -) 650 mg PO Q6H PRN PRN Reason: FEVER Amlodipine Besylate (Norvasc -) 2.5 mg PO DAILY [facility] Last Admin: 07/29/19 10:12 Dose: 2.5 mg Carbidopa/Levodopa (Sinemet *Cr* 50/200 -) 1 combo PO BID [facility] Last Admin: 07/29/19 10:13 Dose: 1 combo Cholecalciferol (Vitamin D3 -) 2,000 unit PO DAILY [facility] Last Admin: 07/29/19 10:13 Dose: 2,000 unit Cholestyramine Resin (Questran Packet -) 4 gm PO DAILY [facility] Last Admin: 07/29/19 10:12 Dose: 4 gm Ezetimibe (Zetia -) 10 mg PO DAILY [facility] Last Admin: 07/29/19 10:13 Dose: 10 mg Heparin Sodium (Porcine) (Heparin -) 5,000 unit SQ BID [facility] Last Admin: 07/29/19 10:11 Dose: 5,000 unit Cefepime HCl 1 gm/ Dextrose 50 mls @ 100 mls/hr IVPB BID [facility]; Protocol Last Admin: 07/29/19 11:00 Dose: 100 mls/hr Lactated Ringer's (Lactated Ringers Solution) 1,000 ml in 1,000 mls @ 75 mls/ hr IV ASDIR [facility] Last Admin: 07/28/19 18:18 Dose: 75 mls/hr Insulin Aspart (Novolog Vial Sliding Scale -) 1 vial SQ HS [facility]; Protocol Last Admin: 07/28/19 22:00 Dose: Not Given Insulin Aspart (Novolog Vial Sliding Scale -) 1 vial SQ TIDAC [facility]; Protocol Last Admin: 07/29/19 16:49 Dose: 3 units Lactobacillus Acidophilus (Bacid -) 1 tab PO DAILY [facility] Last Admin: 07/29/19 10:10 Dose: 1 tab Nadolol (Corgard -) 20 mg PO DAILY [facility] Ondansetron HCl (Zofran Injection) 4 mg IVPUSH Q6H PRN PRN Reason: NAUSEA AND/OR VOMITING Promethazine HCl (Phenergan Injection -) 12.5 mg IVPUSH Q6H PRN PRN Reason: NAUSEA-FOR RESCUE AFTER 15 MIN Rivastigmine Tartrate (Exelon) 3 mg PO BID [facility] Last Admin: 07/29/19 10:11 Dose: 3 mg Tamsulosin HCl (Flomax -) 0.4 mg PO DAILY@0830 [facility] Last Admin: 07/29/19 10:10 Dose: 0.4 mg - Objective Vital Signs: Vital Signs Temperature 98.4 F 07/29/19 18:00 Pulse Rate 64 07/29/19 18:00 Respiratory Rate 07/29/19 18:00 Blood Pressure 120/73 07/29/19 18:00 O2 Sat by Pulse Oximetry (%) 97 07/29/19 09:00 Constitutional: Yes: No Distress Cardiovascular: Yes: Regular Rate and Rhythm, S1, S2 Respiratory: Yes: CTA Bilaterally Gastrointestinal: Yes: Normal Bowel Sounds, Soft Edema: No Labs: CBC, BMP 07/29/19 07:05 07/29/19 07:05 INR, PTT INR 1.06 (0.83-1.09) 07/26/19 01:50 Assessment/Plan S/P CYSTO/ STENT E COLI UTI FEVER- RESOLVED SUBSTITUTE CEFTRIAXONE QD
[2019-07-29] MEDS ORDERED: DEXTROSE 5%-WATER - 50 ML IVPB ONE (21:26)
[2019-07-29] MEDS: LACTATED RINGERS SOLUTION 1,000 ML/1,000 ML INFUS.BAG IV SCH (22:44)
[2019-07-30] MEDS: INSULIN SLIDING SCALE (NOVOLOG) 1 VIAL SQ SCH ×4 (06:10→22:19)
[2019-07-30 08:30] LABS: BLOOD UREA NITROGEN 48.3 mg/dL (7-18); CALCIUM 8.9 mg/dL (8.5-10.1); CREATININE 2.4 mg/dL (0.55-1.3); POTASSIUM 3.9 mmol/L (3.5-5.1)
--- NOTE | 2019-07-30 09:03 | PN ---
Progress Note, Physician Chief Complaint: feels better, awake, alert. Afebrile. 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 Paroxysmal A.Fib. Pituitary adenoma. DM 2 Hypothyroidism Alzheimer's Parkinson's diseaseHTN, CHF Frequent falls, T11-T12 fracture, spinal stenosis. Diverticulosis. C diff. colitis recurrent - Current Medication List Current Medications: Active Medications Acetaminophen (Tylenol -) 650 mg PO Q6H PRN PRN Reason: FEVER Amlodipine Besylate (Norvasc -) 2.5 mg PO DAILY [facility] Last Admin: 07/29/19 10:12 Dose: 2.5 mg Carbidopa/Levodopa (Sinemet *Cr* 50/200 -) 1 combo PO BID [facility] Last Admin: 07/29/19 23:37 Dose: 1 combo Cholecalciferol (Vitamin D3 -) 2,000 unit PO DAILY [facility] Last Admin: 07/29/19 10:13 Dose: 2,000 unit Cholestyramine Resin (Questran Packet -) 4 gm PO DAILY [facility] Last Admin: 07/29/19 10:12 Dose: 4 gm Ezetimibe (Zetia -) 10 mg PO DAILY [facility] Last Admin: 07/29/19 10:13 Dose: 10 mg Heparin Sodium (Porcine) (Heparin -) 5,000 unit SQ BID [facility] Last Admin: 07/29/19 22:41 Dose: 5,000 unit Cefepime HCl 1 gm/ Dextrose 50 mls @ 100 mls/hr IVPB BID [facility]; Protocol Last Admin: 07/29/19 22:41 Dose: 100 mls/hr Lactated Ringer's (Lactated Ringers Solution) 1,000 ml in 1,000 mls @ 75 mls/hr IV ASDIR [facility] Last Admin: 07/29/19 22:44 Dose: 75 mls/hr Insulin Aspart (Novolog Vial Sliding Scale -) 1 vial SQ HS [facility]; Protocol Last Admin: 07/29/19 22:51 Dose: 2 units Insulin Aspart (Novolog Vial Sliding Scale -) 1 vial SQ TIDAC [facility]; Protocol Last Admin: 07/30/19 06:10 Dose: 3 units Lactobacillus Acidophilus (Bacid -) 1 tab PO DAILY [facility] Last Admin: 07/29/19 10:10 Dose: 1 tab Nadolol (Corgard -) 20 mg PO DAILY [facility] Ondansetron HCl (Zofran Injection) 4 mg IVPUSH Q6H PRN PRN Reason: NAUSEA AND/OR VOMITING Promethazine HCl (Phenergan Injection -) 12.5 mg IVPUSH Q6H PRN PRN Reason: NAUSEA-FOR RESCUE AFTER 15 MIN Rivastigmine Tartrate (Exelon) 3 mg PO BID [facility] Last Admin: 07/29/19 22:45 Dose: 3 mg Tamsulosin HCl (Flomax -) 0.4 mg PO DAILY@0830 [facility] Last Admin: 07/29/19 10:10 Dose: 0.4 mg - Objective Vital Signs: Vital Signs Temperature 98.9 F 07/30/19 06:00 Pulse Rate 68 07/30/19 06:00 Respiratory Rate 18 07/30/19 06:00 Blood Pressure 133/67 07/30/19 06:00 O2 Sat by Pulse Oximetry (%) 97 07/29/19 21:00 Constitutional: Yes: No Distress, Calm Eyes: Yes: Conjunctiva Clear, EOM Intact HENT: Yes: Atraumatic, Normocephalic Neck: Yes: Supple, Trachea Midline Cardiovascular: Yes: Regular Rate and Rhythm, S1, S2 Respiratory: Yes: Regular, CTA Bilaterally Gastrointestinal: Yes: Normal Bowel Sounds, Soft, Abdomen, Obese. No: Tenderness, Tenderness, Epigastrium, Tenderness, Rebound Genitourinary: Yes: Price Present Breast(s): Yes: Left, Right Musculoskeletal: Yes: Back Pain Extremities: No: Amputation, Calf Tenderness, Cold, Cyanosis Edema: No Integumentary: Yes: WNL Neurological: Yes: Alert, Oriented (X2), Ataxia, Confusion, Tremors. No: Aphasia, Dysarthria, Lethargy, Seizure, Unsteady Gait, Weakness ...Motor Strength: WNL Psychiatric: Yes: WNL, Alert. No: Agitated, Suicidal Ideation Labs: CBC, BMP 07/29/19 07:05 07/30/19 07:40 INR, PTT INR 1.06 (0.83-1.09) 07/26/19 01:50 Problem List - Problems (1) Diabetes Assessment/Plan: Continue BGM IV fluids Novolog sliding scale Code(s): E11.9 - TYPE 2 DIABETES MELLITUS WITHOUT COMPLICATIONS Qualifiers: Diabetes mellitus type: type 2 Diabetes mellitus complication status: without complication (2) Sepsis Assessment/Plan: Sepsis due to UTI Bld cx neg, UA cx -E.Coli Ceftriaxone IV All PCN Code(s): A41.9 - SEPSIS, UNSPECIFIED ORGANISM Qualifiers: Sepsis type: sepsis due to unspecified organism Severe sepsis acute organ dysfunction type: acute renal failure (3) Renal failure (ARF), acute on chronic Assessment/Plan: CT scan mild Left hydro with UPJ obstructing stone. Creat 2.3-. left Ureteral stent-placed, Price . Follow lytes, BUN/CR Nephrology, urology f/u Code(s): N17.9 - ACUTE KIDNEY FAILURE, UNSPECIFIED; N18.9 - CHRONIC KIDNEY DISEASE, UNSPECIFIED
[2019-07-30] MEDS: TAMSULOSIN HCL 0.4 MG CAP PO SCH (10:15)
[2019-07-30] MEDS: LACTOBACILLUS ACIDOPHILUS 1 TABLET PO SCH (10:15)
[2019-07-30] MEDS: NADOLOL 20 MG TABLET (FP) PO SCH (10:16)
[2019-07-30] MEDS: RIVASTIGMINE TARTRATE 3 MG CAPSULE PO SCH ×2 (10:17→22:18)
[2019-07-30] MEDS: HEPARIN NA (PORCINE) 5,000 UNITS/ML 1ML VIAL SQ SCH ×2 (10:18→22:19)
[2019-07-30] MEDS: amLODIPine BESYLATE 2.5 MG TABLET (FP) PO SCH (10:18)
[2019-07-30] MEDS: CHOLESTYRAMINE/SUCROSE 4 GM PACKET PO SCH (10:20)
[2019-07-30] MEDS: CHOLECALCIFEROL (VIT D3) 1,000 UNIT (25 MCG) TABLET PO SCH (10:23)
[2019-07-30] MEDS: EZETIMIBE 10 MG TABLET (FP) PO SCH (10:24)
--- NOTE | 2019-07-30 12:21 | PN ---
Progress Note (short form) - Note Progress Note: Renal follow up for OMER Seen and examined at the bedside no acute complaints no overnight events tolerating her diet she denies any pain, sob, N/V/D, fever or chills making urine Vital Signs Temperature 98.9 F 07/30/19 06:00 Pulse Rate 68 07/30/19 06:00 Respiratory Rate 18 07/30/19 06:00 Blood Pressure 133/67 07/30/19 06:00 O2 Sat by Pulse Oximetry (%) 97 07/29/19 21:00 Intake & Output 07/27/19 07/28/19 07/29/19 07/30/19 23:59 23:59 23:59 23:59 Intake Total 1700 1350 1500 725 Output Total 2900 1600 2600 600 Balance -1200 -250 -1100 125 Weight 62.142 kg NAD awake and alert Neck supple, no JVD RRR, no M/R dec bs, no rales soft NT/ND, no rebound or guarding no LE edema, clubbing or cyanosis CBC, BMP 07/29/19 07:05 07/30/19 07:40 Current Medications Acetaminophen (Tylenol -) 650 mg PO Q6H PRN PRN Reason: FEVER Amlodipine Besylate (Norvasc -) 2.5 mg PO DAILY [facility] Last Admin: 07/29/19 10:12 Dose: 2.5 mg Carbidopa/Levodopa (Sinemet *Cr* 50/200 -) 1 combo PO BID [facility] Last Admin: 07/29/19 23:37 Dose: 1 combo Cholecalciferol (Vitamin D3 -) 2,000 unit PO DAILY [facility] Last Admin: 07/29/19 10:13 Dose: 2,000 unit Cholestyramine Resin (Questran Packet -) 4 gm PO DAILY [facility] Last Admin: 07/29/19 10:12 Dose: 4 gm Ezetimibe (Zetia -) 10 mg PO DAILY [facility] Last Admin: 07/29/19 10:13 Dose: 10 mg Heparin Sodium (Porcine) (Heparin -) 5,000 unit SQ BID [facility] Last Admin: 07/29/19 22:41 Dose: 5,000 unit Cefepime HCl 1 gm/ Dextrose 50 mls @ 100 mls/hr IVPB BID [facility]; Protocol Last Admin: 07/29/19 22:41 Dose: 100 mls/hr Insulin Aspart (Novolog Vial Sliding Scale -) 1 vial SQ HS [facility]; Protocol Last Admin: 07/29/19 22:51 Dose: 2 units Insulin Aspart (Novolog Vial Sliding Scale -) 1 vial SQ TIDAC [facility]; Protocol Last Admin: 07/30/19 11:36 Dose: 5 units Lactobacillus Acidophilus (Bacid -) 1 tab PO DAILY [facility] Last Admin: 07/29/19 10:10 Dose: 1 tab Nadolol (Corgard -) 20 mg PO DAILY [facility] Ondansetron HCl (Zofran Injection) 4 mg IVPUSH Q6H PRN PRN Reason: NAUSEA AND/OR VOMITING Promethazine HCl (Phenergan Injection -) 12.5 mg IVPUSH Q6H PRN PRN Reason: NAUSEA-FOR RESCUE AFTER 15 MIN Rivastigmine Tartrate (Exelon) 3 mg PO BID [facility] Last Admin: 07/29/19 22:45 Dose: 3 mg Tamsulosin HCl (Flomax -) 0.4 mg PO DAILY@0830 [facility] Last Admin: 07/29/19 10:10 Dose: 0.4 mg 79 year old woman with history of Heart block s/p PPM Afib, hypertension, hyperlipidemia, parkinsons dementia, Alzhimers, hx of C.Diff who presented from [place] with fever and NH and found to have acute renal injury with Cr of 3.8. 1. Acute Renal failure 2. Sepsis secondary to Cystitis r/o complicated pylonephritis 3. Unilateral hydronephrosis 4. lactic acidosis 5. Anemia Etiology of OMER likely multifactorial in setting of sepsis and unilateral obstruction Renal function improved but stable over the past 24 hours will d/c IVF today as pt appears euvolemic encouraged oral hydration and solute intake s/p cysto and stent placement Continue Flomax 0.4mg Continue antibiotics as per ID Trend H/H, no acute indication for transfusion Thank you Chase Moffett DO
[2019-07-30] MEDS ORDERED: CEFTRIAXONE 2 GM in DEXTROSE 5%-WATER 100 ML IVPB SCH (13:45)
[2019-07-30] MEDS: CEFEPIME 1 GM in DEXTROSE 5%-WATER - 50 ML IVPB SCH (19:41)
[2019-07-30] MEDS ORDERED: PT OWN MED DRAWER 7, Y5N ONE (20:39)
[2019-07-30] MEDS ORDERED: INSULIN (NOVOLOG) ASPART 100 UNITS/ML 10ML VIAL ONE (20:39)
[2019-07-31] MEDS: INSULIN SLIDING SCALE (NOVOLOG) 1 VIAL SQ SCH ×3 (06:20→17:41)
--- NOTE | 2019-07-31 07:41 | PN ---
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 Paroxysmal A.Fib. Pituitary adenoma. DM 2 Hypothyroidism Alzheimer's Parkinson's diseaseHTN, CHF Frequent falls, T11-T12 fracture, spinal stenosis. Diverticulosis. C diff. colitis recurrent - Current Medication List Current Medications: Active Medications Acetaminophen (Tylenol -) 650 mg PO Q6H PRN PRN Reason: FEVER Amlodipine Besylate (Norvasc -) 2.5 mg PO DAILY [facility] Last Admin: 07/30/19 10:18 Dose: 2.5 mg Carbidopa/Levodopa (Sinemet *Cr* 50/200 -) 1 combo PO BID [facility] Last Admin: 07/30/19 22:19 Dose: 1 combo Cefuroxime Axetil (Ceftin -) 500 mg PO BID [facility] Cholecalciferol (Vitamin D3 -) 2,000 unit PO DAILY [facility] Last Admin: 07/30/19 10:23 Dose: 2,000 unit Cholestyramine Resin (Questran Packet -) 4 gm PO DAILY [facility] Last Admin: 07/30/19 10:20 Dose: 4 gm Ezetimibe (Zetia -) 10 mg PO DAILY [facility] Last Admin: 07/30/19 10:24 Dose: 10 mg Heparin Sodium (Porcine) (Heparin -) 5,000 unit SQ BID [facility] Last Admin: 07/30/19 22:19 Dose: 5,000 unit Insulin Aspart (Novolog Vial Sliding Scale -) 1 vial SQ HS [facility]; Protocol Last Admin: 07/30/19 22:19 Dose: 2 units Insulin Aspart (Novolog Vial Sliding Scale -) 1 vial SQ TIDAC [facility]; Protocol Last Admin: 07/31/19 06:20 Dose: 3 units Insulin Detemir (Levemir Vial) 10 units SQ HS [facility] Lactobacillus Acidophilus (Bacid -) 1 tab PO DAILY [facility] Last Admin: 07/30/19 10:15 Dose: 1 tab Nadolol (Corgard -) 20 mg PO DAILY [facility] Last Admin: 07/30/19 10:16 Dose: 20 mg Ondansetron HCl (Zofran Injection) 4 mg IVPUSH Q6H PRN PRN Reason: NAUSEA AND/OR VOMITING Promethazine HCl (Phenergan Injection -) 12.5 mg IVPUSH Q6H PRN PRN Reason: NAUSEA-FOR RESCUE AFTER 15 MIN Rivastigmine Tartrate (Exelon) 3 mg PO BID [facility] Last Admin: 07/30/19 22:18 Dose: 3 mg Silver Sulfadiazine (Silvadene -) 1 applic TP BID [facility] Tamsulosin HCl (Flomax -) 0.4 mg PO DAILY@0830 [facility] Last Admin: 07/30/19 10:15 Dose: 0.4 mg - Objective Vital Signs: Vital Signs Temperature 98.1 F 07/31/19 06:15 Pulse Rate 62 07/31/19 06:15 Respiratory Rate 07/31/19 06:15 Blood Pressure 131/63 07/31/19 06:15 O2 Sat by Pulse Oximetry (%) 96 07/30/19 21:00 Constitutional: Yes: No Distress, Calm Eyes: Yes: Conjunctiva Clear, EOM Intact HENT: Yes: Atraumatic, Normocephalic Neck: Yes: Supple, Trachea Midline. No: Thyromegaly Respiratory: Yes: Regular, CTA Bilaterally. No: Cough, Diminished, Dullness, Rales, Rhonchi, Wheezes Gastrointestinal: Yes: Normal Bowel Sounds, Soft. No: Abdomen, Obese, Ascites ...Rectal Exam: Yes: Deferred Genitourinary: No: Anuria, Bladder Distention Breast(s): Yes: WNL Musculoskeletal: Yes: WNL Extremities: Yes: WNL Edema: No Integumentary: Yes: Pressure Ulcer (sacrum stage 2) Wound/Incision: Yes: Clean/Dry Neurological: Yes: Alert, Oriented (X1-2), Aphasia ...Motor Strength: WNL Psychiatric: Yes: Alert, Oriented (X1-2) Labs: CBC, BMP 07/29/19 07:05 07/30/19 07:40 INR, PTT INR 1.06 (0.83-1.09) 07/26/19 01:50 Problem List - Problems (1) Diabetes Assessment/Plan: Start Levemir 10 units HS Follow BGM No glucophage due to Cr 2.4 Novolog sliding scale Code(s): E11.9 - TYPE 2 DIABETES MELLITUS WITHOUT COMPLICATIONS Qualifiers: Diabetes mellitus type: type 2 Diabetes mellitus complication status: without complication (2) Sepsis Assessment/Plan: Sepsis due to UTI Bld cx neg, UA cx -E.Coli Ceftin PO x 5 days All PCN Code(s): A41.9 - SEPSIS, UNSPECIFIED ORGANISM Qualifiers: Sepsis type: sepsis due to unspecified organism Severe sepsis acute organ dysfunction type: acute renal failure (3) Renal failure (ARF), acute on chronic Assessment/Plan: CT scan mild Left hydro with UPJ obstructing stone. Creat 2.4-. left Ureteral stent-placed, Price-D/C . Code(s): N17.9 - ACUTE KIDNEY FAILURE, UNSPECIFIED; N18.9 - CHRONIC KIDNEY DISEASE, UNSPECIFIED
--- NOTE | 2019-07-31 07:42 | DS ---
Physical Examination Vital Signs: Vital Signs Temperature 98.1 F 07/31/19 06:15 Pulse Rate 62 07/31/19 06:15 Respiratory Rate 20 07/31/19 06:15 Blood Pressure 131/63 07/31/19 06:15 O2 Sat by Pulse Oximetry (%) 96 07/30/19 21:00 Constitutional: Yes: No Distress, Calm Eyes: Yes: Conjunctiva Clear, EOM Intact HENT: Yes: Atraumatic, Normocephalic Neck: Yes: Supple, Trachea Midline Cardiovascular: Yes: Regular Rate and Rhythm, Other (PPM) Respiratory: Yes: Regular, CTA Bilaterally Gastrointestinal: Yes: Normal Bowel Sounds, Soft. No: Abdomen, Obese Renal/: No: Anuria Musculoskeletal: Yes: WNL Extremities: No: Amputation, Calf Tenderness, Cold, Cyanosis Edema: No Peripheral Pulses WNL: No Integumentary: Yes: Pressure Ulcer (stage 2 sacrum) Neurological: Yes: Alert, Tremors, Unsteady Gait. No: Aphasia, Dysarthria, Lethargy, Seizure, Unresponsive ...Motor Strength: WNL Psychiatric: Yes: Alert. No: Agitated, Suicidal Ideation Labs: CBC, BMP 07/29/19 07:05 07/30/19 07:40 Discharge Summary Problems reviewed: Yes Reason For Visit: SEPSIS Current Active Problems Acute renal failure (Acute) Aspiration into airway (Acute) Hydronephrosis, left (Acute) Penicillin allergy (Acute) Renal failure (ARF), acute on chronic (Acute) Sepsis (Acute) UTI (urinary tract infection) (Acute) Condition: Improved - Instructions Referrals: Gilberto Irby MD [Primary Care Provider] - - Home Medications Comprehensive Discharge Medication List: Ambulatory Orders Acetaminophen [Tylenol] 650 mg PO Q6H PRN 10/18/16 Cholecalciferol (Vitamin D3) [Vitamin D3] 2,000 unit PO DAILY 10/18/16 Ezetimibe [Zetia] 10 mg PO DAILY 10/18/16 Insulin Aspart [Novolog Flexpen] 4 unit SQ DAILY 10/18/16 Insulin Detemir [Levemir Flextouch] 20 unit SQ HS 10/18/16 Sitagliptin Phosphate [Januvia] 25 mg PO DAILY 10/18/16 metFORMIN HCL [Metformin ER Osmotic] 1,000 mg PO BID 05/21/17 Furosemide [Lasix] 20 mg PO DAILY 11/15/17 Acidoph/L.bulg/Bif.b/S.thermop [Keri-Bid Caplet] 1 each PO DAILY 07/26/19 Bacitracin/Polymyxin Ointment [Polysporin Ointment -] 1 applic TP BID 07/26/19 Carbidopa/Levodopa *Cr* 50/200 [Sinemet *Cr* 50/200 -] 1 combo PO BID 07/26/19 Cholestyramine (with Sugar) [Cholestyramine Packet] 4 gm PO DAILY 07/26/19 Nadolol [Corgard -] 20 mg PO DAILY 07/26/19 Rivastigmine Tartrate [Rivastigmine] 3 mg PO BID 07/26/19
[2019-07-31] MEDS ORDERED: PT OWN MED DRAWER 7, Y5N ONE (08:51)
[2019-07-31] MEDS: HEPARIN NA (PORCINE) 5,000 UNITS/ML 1ML VIAL SQ SCH (09:18)
[2019-07-31] MEDS: amLODIPine BESYLATE 2.5 MG TABLET (FP) PO SCH (09:19)
[2019-07-31] MEDS: CHOLECALCIFEROL (VIT D3) 1,000 UNIT (25 MCG) TABLET PO SCH (09:19)
[2019-07-31] MEDS: LACTOBACILLUS ACIDOPHILUS 1 TABLET PO SCH (09:19)
[2019-07-31] MEDS: TAMSULOSIN HCL 0.4 MG CAP PO SCH (09:19)
[2019-07-31] MEDS: NADOLOL 20 MG TABLET (FP) PO SCH (09:20)
[2019-07-31] MEDS: RIVASTIGMINE TARTRATE 3 MG CAPSULE PO SCH (09:20)
[2019-07-31] MEDS: CHOLESTYRAMINE/SUCROSE 4 GM PACKET PO SCH (09:21)
[2019-07-31] MEDS: EZETIMIBE 10 MG TABLET (FP) PO SCH (09:22)
[2019-07-31] MEDS ORDERED: SILVER SULFADIAZINE 1% TOP CREAM 50 GM JAR TP SCH (10:00)
[2019-07-31] MEDS ORDERED: CEFUROXIME AXETIL 500 MG TABLET PO SCH ×2 (10:00)
[2019-07-31] MEDS ORDERED: INSULIN (NOVOLOG) ASPART 100 UNITS/ML 10ML VIAL ONE ×2 (10:16→17:40)
[2019-07-31 18:50] VITALS: BP 151/81; PULSE 64; TEMP 99
[2019-07-31] MEDS ORDERED: INSULIN (LEVEMIR) 100 UNITS/ML UNITS SQ SCH (22:00)
== END 2019-07-31 18:55 | DRG 853 ==
LOC: JER 01:03 → JERBED 02:48 → J7W 14:29
PROVIDERS: ADMIT Internal Medicine; ATTEND Internal Medicine
PROC: 0T778DZ Dilation of Left Ureter with Intraluminal Device, Via Natural or Artificial Opening Endoscopic (ICD-10-PCS; principal; 2019-07-28 14:30)
PROC: BT1FYZZ Fluoroscopy of Left Kidney, Ureter and Bladder using Other Contrast (ICD-10-PCS; 2019-07-28 14:30)
DX: A41.51 Sepsis due to Escherichia coli [E. coli] (principal); G93.41 Metabolic encephalopathy; N17.9 Acute kidney failure, unspecified; N13.0 Hydronephrosis with ureteropelvic junction obstruction; E87.2 Acidosis; N13.6 Pyonephrosis; E87.5 Hyperkalemia; N18.9 Chronic kidney disease, unspecified; E11.9 Type 2 diabetes mellitus without complications; I48.91 Unspecified atrial fibrillation; I48.0 Paroxysmal atrial fibrillation; E03.9 Hypothyroidism, unspecified; G20 Parkinson's disease; G30.9 Alzheimer's disease, unspecified; F02.80 Dementia in other diseases classified elsewhere, unspecified severity, without behavioral disturbance, psychotic disturbance, mood disturbance, and anxiety; I11.0 Hypertensive heart disease with heart failure; I50.9 Heart failure, unspecified; D64.9 Anemia, unspecified; B96.20 Unspecified Escherichia coli [E. coli] as the cause of diseases classified elsewhere; Z88.0 Allergy status to penicillin; K21.9 Gastro-esophageal reflux disease without esophagitis; E78.5 Hyperlipidemia, unspecified
CPT/HCPCS: 36415; 71045-TC-FY; 74176-TC; 76775-TC; 80048; 80053; 81003; 82550; 82565; 82803; 82962; 83605; 83735; 84100; 84300; 84484; 84540; 85025; 85610; 85730; 87040; 87086; 87186; 87804; 87807; 93005; 93010; 94760; 97116-GP; 97162-GP; 99285-25; J0131; J1644; J7030